=== PATIENT | female | born 1950 | race Caucasian/White ===

== ENCOUNTER 2017-07-20 19:56 | Inpatient (IN) | payer MEDICARE, OTHER ==
[~2017-07-20 19:56] MED LIST: ISOVUE-370 76%-LOCM 1 ML ONE
[2017-07-20 20:49] LABS: Bilirubin Small (Negative); Blood, Urine Large (Negative); Clarity TURBID (Clear); Glucose, Urine (Dipstick) Negative (Negative); Leukocyte Large (Negative); Nitrite Negative (Negative); Protein, Urine (Dipstick) 300 mg/dL (Neg-Trace); Specific Gravity, Urine 1.018 (1.002-1.036); pH, Urine 5.5 (5.0-9.0)
[2017-07-20 20:50] LABS: Bacteria/HPF 4+ HPF (None Seen)
[2017-07-20 20:51] LABS: Pathc Cast-AUWi Flag 11.84 (0-2.49); Yeast-AUWi Flag 113.8 (0-25.0)
[2017-07-20 20:56] LABS: Band 22 % (5-11); Hemoglobin 15.4 g/dL (12.0-16.0); Lymphocytes 2 % (21-51); MDiff Complete? YES; Mean Corpuscular HGB CONC 34.6 g/dL (32.0-36.0); Mean Platelet Volume 6.3 fL (7.4-10.4); Monocytes 4 % (0-10); Neutrophil 72 % (42-75); PLT Morphology Comment Appears Adequate; Platelet Count 232 thou/uL (130-400); RBC Distribution Width 12.8 % (11.5-14.5); Red Blood Cell (RBC) Count 4.28 mill/uL (4.20-5.40); White Blood Cell (WBC) Count 30.2 thou/uL (4.8-10.8)
[2017-07-20 20:59] LABS: RBC/HPF 21-50 HPF (0-3)
[2017-07-20 21:01] LABS: CKMB 1.5 ng/mL (0-6.6); Troponin I Less than 0.010 ng/mL (< 0.028)
[2017-07-20 21:09] LABS: ALT (SGPT) 54 U/L (8-55); AST (SGOT) 42 U/L (5-34); Albumin 4.3 g/dL (3.4-4.8); Alkaline Phosphatase 163 U/L (40-150); Anion Gap 24 mmol/L (10-20); BUN (Urea Nitrogen) 45 mg/dL (9.8-20.1); Bilirubin, Total 1.4 mg/dL (0.2-1.2); Calc. Creatinine Clearance 0 mL/min (70-130); Calcium 10.7 mg/dL (7.8-10.44); Carbon Dioxide 19 mmol/L (23-31); Chloride 93 mmol/L (98-107); Estimated GFR-MDRD 15; Globulin 3.3 g/dL (2.4-3.5); Glucose 169 mg/dL (80-115); Lipase 6 U/L (8-78); Potassium 4.3 mmol/L (3.5-5.1); Protein, Total 7.6 g/dL (6.0-8.3); Sodium 132 mmol/L (136-145)
[2017-07-20] MEDS ORDERED: Piperacillin/Tazobactam 4.5 GM VIAL ONE (21:10)
[2017-07-20] MEDS ORDERED: Acetaminophen 500 MG TAB ONE (21:10)
--- NOTE | 2017-07-20 21:31 | RAD ---
PORTABLE AP CHEST X-RAY 07/20/17 HISTORY: Altered mental status. Sepsis alert. COMPARISON: 06/28/14. FINDINGS: The cardiac silhouette and pulmonary vasculature are within normal limits. The mediastinal structures and cardiac silhouette are accentuated due to rotation of the patient. The lungs are clear. Vascular calcifications are seen in the thoracic aorta. There has been no interval change from the prior exam . IMPRESSION: No acute cardiopulmonary process. POS: [facility]
[2017-07-20] MEDS ORDERED: Bisacodyl 5 MG TAB PO PRN (22:24)
[2017-07-20] MEDS ORDERED: Acetaminophen 650 MG Suppository PR PRN (22:24)
[2017-07-20] MEDS ORDERED: Dextrose 5% in Water 1,000 ML IV PRN (22:30)
[2017-07-20] MEDS ORDERED: Dextrose 50% Abboject 50 ML SYRINGE SLOW IVP PRN (22:30)
[2017-07-20 22:50] LABS: Acetaminophen Less than 6.0 mcg/mL (10.0-30.0); Alcohol Less than 10 mg/dL (Less than 10); Salicylate Less than 8.0 mg/dL (15.0-30.0)
--- NOTE | 2017-07-20 22:57 | CT ---
NONCONTRAST CT HEAD: 07/20/17 HISTORY: Altered mental status. FINDINGS: There is an increased density lesion with suggestion of a punctate peripheral calcification seen near the tip of the basilar artery which measures 12 mm x 9 mm and may represent a basilar tip artery ane urysm. There are chronic small vessel ischemic changes and cerebral volume loss. There is no evidence of an acute cortical infarction, hemorrhage, mass effect or midline shift. Ventricular system is normal in size, shape and position for the degree of sulcal atrophy. Minimal mucosal thickening is seen in the right maxillary antrum. The remainder of the visualized par anasal sinuses and mastoid air cells are clear. Calvarial structures appear intact. IMPRESSION: 1. Evidence for basilar tip artery aneurysm. However, confirmation with CT angiogram brain is re commended to exclude other etiologies or lesions. 2. Chronic small vessel ischemic changes and cerebral volume loss. 3. Above findings discussed with Dr. Barakat in the Emergency Department on 07/20/17 at 2047 hours . POS: [facility]
--- NOTE | 2017-07-20 23:04 | CT ---
CT ANGIOGRAM HEAD WITH IV CONTRAST AND 3D RECONSTRUCTION 07/20/17 HISTORY: Altered mental status. Findings suggestive of basilar tip artery aneurysm were noted on noncontrast h ead CT. FINDINGS: As noted on the noncontrast CT scan of the head, there is a large basilar tip artery aneurysm measuri ng 10 mm craniocaudal x 12.6 mm AP x 11 mm transverse. There is also an approximately 4 mm aneurysm at the ACOM position. Atherosclerotic calcifications are seen in the internal carotid arteries at the carotid siphons. Ther e is mild atherosclerotic irregularity of the internal carotid arteries. The bilateral middle cerebr al and anterior cerebral arteries are patent without focal stenosis or branch occlusion. The right vertebral artery is dominant and patent. The left ventricular artery is smaller in caliber but also patent. The basilar artery is patent. the bilateral posterior cerebral and superior cerebell ar arteries appear patent. IMPRESSION: 1. Large basilar tip artery aneurysm. 2. Small ACOM position aneurysm. 3. Atherosclerotic vascular calcifications in the internal carotid arteries. 1. POS: [facility]
--- NOTE | 2017-07-20 23:32 | HP ---
PRIMARY CARE PHYSICIAN: Kaila Mcadams M.D. CHIEF COMPLAINT: Altered mental status. HISTORY OF PRESENT ILLNESS: Ms. Cummings is a pleasant 67-year-old lady who was seen at [facility] on 07/20/2017. Ms. Cummings is unable to provide any significant history. Her family was by the bedside and was abl e to provide history. Collateral history was also obtained from discussion with emergency room physi elio and review of medical records. Ms. Cummings lives by herself and manages all her activities on her own. Over the last few weeks, th ere has been concern regarding decline in cognition and memory. She was seen by neurologist on 06/18. I do not have access to the records of that clinical encounter. Over the last few days, she has been becoming more and more forgetful. Her son reached her neighbors to check on her. Around 6:30 p.m. today, she was found across the street, without her pants on. He r son reports that she usually dresses in a night gown during the daytime and this is not unusual for her. She has been confused. She is able to recognize her son, but is unable to name other family members. REVIEW OF SYSTEMS: Could not be completed because of the patient's altered mental status. PAST MEDICAL HISTORY: Significant for hypertension, hypothyroidism, diabetes mellitus type 2, COPD, tremors and dyslipidemia. PAST SURGICAL HISTORY: The patient had a D and C in 11/2013. PSYCHIATRIC HISTORY: Anxiety and depression. SOCIAL HISTORY: The patient drinks alcohol on a daily basis. She also smokes 1 pack of cigarettes a day. No history of recreational drug use. FAMILY HISTORY: Unable to obtain. ALLERGIES: PENICILLIN. CURRENT MEDICATIONS: Venlafaxine 37.5 mg daily, vitamin D 50,000 units weekly, metoprolol succinate 100 mg daily, Synthroid 125 mcg daily, metformin 500 mg 4 times a day, losartan 100 mg daily, aspirin 81 mg daily, hydrochlorothiazide 12.5 mg daily, Symbicort 2 puffs 2 times a day, Botox injection elizabeth ry 3 months, Vascepa 1 g 2 times a day, Repatha 420 mg monthly and aripiprazole 5 mg daily. PHYSICAL EXAMINATION: GENERAL: Ms. Cummings is awake and alert, not in acute distress. VITAL SIGNS: Blood pressure is 99/57, pulse is 115. She is breathing at rate of 22 and saturating 9 7% on room air. She is afebrile. EYES: No scleral icterus. No conjunctival pallor. ENT: Dry mucosal membranes, no oropharyngeal erythema or exudates. NECK: Supple, nontender, trachea midline, no thyromegaly. RESPIRATORY: Accessory muscles of breathing are not active. Chest wall movements are symmetric bila terally. LUNGS: Clear to auscultation without wheeze, rhonchi or crepitations. CARDIOVASCULAR: S1 and S2 are heard, tachycardic and regular. Peripheral pulses palpable. No carot id bruit, no pericardial rub. ABDOMEN: Soft, nontender, bowel sounds heard, no hepatomegaly, no splenomegaly. NEUROLOGIC: Cranial nerves II through XII intact, deep tendon reflexes are 2+. MUSCULOSKELETAL: Power is 5/5 in all 4 extremities. SKIN: No rashes or subcutaneous nodules. LYMPHATIC: No cervical lymphadenopathy. PSYCHIATRIC: Normal mood, normal affect, patient is not oriented to person, place or time. LABORATORY DATA: Ms. Cummings's labs and investigations were reviewed. I reviewed her electrocardio gram, which shows sinus tachycardia, no ST changes to suggest an acute coronary syndrome. I also rev iewed her chest x-ray, which does not show any pulmonary infiltrates. She had a noncontrast CT scan of the brain, which showed evidence for basilar tip artery aneurysm. Radiologist recommended CT amee ogram of the brain. The study has been completed, report pending. She has leukocytosis with 30,200 white cells, of which 72% are neutrophils and 22% are bands, normal hemoglobin of 15.4, macrocytosis with MCV of 104, normal platelet count, decreased sodium of 132, normal potassium, decreased carbon d ioxide of 19, elevated anion gap of 24, elevated lactic acid of 8.2, elevated blood urea nitrogen 45, elevated creatinine 3.12, last known creatinine 0.88 on 07/04/2016, elevated calcium 10.7, elevated total bilirubin 1.4, elevated AST of 42, normal ALT, elevated alkaline phosphatase of 163, normal tro ponin I, elevated TSH of 7.4642. Urinalysis positive for protein, ketones, blood, bilirubin and leuk ocyte esterase, and plasma alcohol level less than 10. ASSESSMENT AND PLAN: Ms. Cummings is a pleasant 67-year-old lady who was seen at [facility]. Her problem list includes: 1. Acute encephalopathy: Likely metabolic or infectious. Patient will be admitted to the hospital for further management. 2. Sepsis: Patient's presentation meets the criteria for sepsis, suspected source of infection in t he urinary tract. She will be treated with intravenous fluids and antibiotics. 3. Urinary tract infection: She has received Zosyn and vancomycin in the emergency room. We will c ontinue vancomycin and change Zosyn to meropenem to cover for extended-spectrum beta-lactamases posit mk organisms. 4. Hypothyroidism: TSH is slightly elevated. I will check free T3 and free T4. 5. Tobacco abuse: Start nicotine replacement therapy. 6. Daily alcohol use: Start ASE protocol. 7. Diabetes mellitus type 2: Hold metformin, given renal failure. Start Accu-Cheks and insulin slid ing scale. 8. Acute kidney injury: Likely prerenal. Hydrate the patient and recheck creatinine level. Hold n ephrotoxic medications include metformin, losartan, and hydrochlorothiazide. Many thanks for allowing me to participate in your patient's care. Please feel free to contact me wi th any questions or concerns. LEVEL OF RISK: High. LEVEL OF COMPLEXITY: High.
[2017-07-21 00:18] LABS: Free T4 (Free Thyroxine) 1.06 ng/dL (0.70-1.48)
[2017-07-21] MEDS ORDERED: Norepinephrine 8 MG/0.9% NS 250 ML ONE (01:34)
[2017-07-21] MEDS ORDERED: diphenhydrAMINE 50 MG/ML VIAL ONE (03:36)
[2017-07-21 03:40] LABS: Band 19 % (5-11); Hemoglobin 13.3 g/dL (12.0-16.0); Lymphocytes 2 % (21-51); MDiff Complete? YES; Mean Corpuscular Hemoglobin 35.1 pg (27.0-31.0); Mean Platelet Volume 6.3 fL (7.4-10.4); Monocytes 2 % (0-10); Neutrophil 77 % (42-75); PLT Morphology Comment Appears Adequate; Platelet Count 195 thou/uL (130-400); RBC Distribution Width 12.8 % (11.5-14.5); Red Blood Cell (RBC) Count 3.79 mill/uL (4.20-5.40); White Blood Cell (WBC) Count 24.7 thou/uL (4.8-10.8)
[2017-07-21 03:46] LABS: Lactic Acid 5.8 mmol/L (0.5-2.2)
[2017-07-21 04:21] LABS: Anion Gap 21 mmol/L (10-20); BUN (Urea Nitrogen) 43 mg/dL (9.8-20.1); Calc. Creatinine Clearance 0 mL/min (70-130); Calcium 8.6 mg/dL (7.8-10.44); Carbon Dioxide 13 mmol/L (23-31); Chloride 102 mmol/L (98-107); Estimated GFR-MDRD 19; Glucose 117 mg/dL (80-115); Potassium 4.3 mmol/L (3.5-5.1); Sodium 132 mmol/L (136-145)
[2017-07-21] MEDS ORDERED: Acetaminophen 325 MG TAB ONE (05:56)
[2017-07-21] MEDS: Sodium Chloride 0.9% 1,000 ML IV SCH ×3 (09:59→17:47)
[2017-07-21] MEDS: MEROPENEM 1 GM/50 ML 1 GM in Premix Bag 1 BAG IVPB SCH ×3 (10:00→21:48)
[2017-07-21] MEDS: Nicotine 21 MG PATCH TD SCH (10:01)
[2017-07-21] MEDS: Heparin 5,000 UNITS/ML VIAL SC SCH ×3 (10:01→20:54)
[2017-07-21] MEDS: Multivitamins, Adult 10 ML, Folic Acid 1 MG, Thiamine HCl 100 MG in Dextrose 5 %-0.45 %... IV SCH (10:12)
--- NOTE | 2017-07-21 11:28 | RAD ---
PORTABLE SUPINE FRONTAL CHEST RADIOGRAPH: Date: 07/21/17 COMPARISON: 07/20/17. HISTORY: Central line placement. FINDINGS: There is a right-sided vascular catheter with distal tip overlying the right atrium. Supine imaging l imits assessment for pneumothorax and pleural fluid. There is mild pulmonary vascular congestion with nonspecific diffuse stable interstitial prominence. IMPRESSION: Right-sided vascular catheter as above. POS: [facility]
[2017-07-21] MEDS ORDERED: Sodium Chloride 0.9% 1,000 ML IV SCH (13:00)
--- NOTE | 2017-07-21 15:03 | CON ---
DATE OF CONSULTATION: 07/21/2017 DATE OF CONSULTATION: Altered mental status. CONSULTING PHYSICIAN: Anthony Garcia M.D. This consultation encompassed 70 minutes time of the 70 minutes, greater than 50% was spent either wi th the patient or on the patient's unit in the hospital. HISTORY OF PRESENT ILLNESS: The patient is a 67-year-old female who apparently was found wandering i n the neighbor's yard yesterday. She has been confused over the last couple of days. This is not ty pical for her according to the patient's two children who are currently at the hospital seeing her. PAST MEDICAL HISTORY: 1. Hypertension. 2. Hypothyroidism. 3. Diabetes mellitus type 2. 4. Question of COPD. 5. Tremors. PAST SURGICAL HISTORY: D&C. PSYCHIATRIC HISTORY: Remarkable for anxiety, depression. SOCIAL HISTORY: Drinks at least a bottle of wine a day. Smokes at least a pack of cigarettes per da y. Lives at home by herself. FAMILY MEDICAL HISTORY: Unremarkable. ALLERGIES: PENICILLIN. MEDICATIONS PRIOR TO ADMISSION: Effexor, vitamin D, metoprolol, Synthroid, metformin, losartan, aspi rin, hydrochlorothiazide, Symbicort, Botox injections, Vascepa, Repatha, and aripiprazole. REVIEW OF SYSTEMS: Twelve point review of systems otherwise negative. PHYSICAL EXAMINATION: VITAL SIGNS: Temperature 99, pulse 100, blood pressure 90/54, O2 sat 94%. GENERAL: She is awake, alert, can answer some questions, but prefers just to stare. HEENT: Pupils react. Sclerae icteric. Oropharynx clear. NECK: Nodular thyroid. LUNGS: Clear without wheezing or rhonchi. CARDIOVASCULAR: S1, S2 regular. ABDOMEN: Soft, nontender. EXTREMITIES: No edema. LABORATORY AND X-RAY FINDINGS: White blood cell count 24.7, hematocrit 40, platelet count 195. Sodi um 132, potassium 4.3, chloride 102, CO2 of 13, BUN 43, creatinine 2.5, glucose 117, lactate was init ially 8.2 down to 5.8. Urinalysis showed too numerous to count white blood cells. Tox screen was ne gative. Chest x-ray showed no overt mass, effusion, or infiltrate. ASSESSMENT: 1. Urosepsis. 2. Altered mental status which is probably secondary to urosepsis. 3. History of alcohol and tobacco abuse. PLAN: Reviewed orders and agree with treatment with broad spectrum IV antibiotics. Vasopressors hav e already been discontinued. She needs a Neurology workup. She needs IV thiamine and multivitamins given her alcohol history. Hopefully, she can be moved out of the Critical Care Unit by tomorrow.
--- NOTE | 2017-07-21 15:31 | PDOC.PN ---
- Subjective Encounter Start Date: 07/21/17 Encounter Start Time: 11:00 Subjective: pt up in bed more awake - Objective Vital Signs & Weight: Vital Signs (12 hours) Temp Pulse Resp Pulse Ox 07/21/17 15:07 91 L 07/21/17 15:05 120 H 32 H 91 L 07/21/17 11:00 99.2 F 07/21/17 09:33 91 L 07/21/17 09:00 99 F 07/21/17 08:00 99 F 108 H 26 H 98 07/21/17 04:42 97 Weight Weight 163 lb 12.855 oz Most Recent Monitor Data Heart Rate from ECG 98 NIBP 169/94 NIBP BP-Mean 146 Respiration from ECG 32 SpO2 89 I&O: 07/20/17 07/21/17 07/22/17 06:59 06:59 06:59 Intake Total 3370 Output Total 500 Balance 2870 Result Diagrams: 07/21/17 03:18 07/21/17 03:18 Additional Labs: Accuchecks 07/21/17 11:41 POC Glucose 144 H Dx/Plan - Plan 1) acute metabolic encephalopathy 2) uti 3) alcohol abuse 4) basilar aneurysm 5) hypotension plan: pt's mentation is improving will continue iv abx for now pt drinks a bottle of wine daily will give pt 2L of iv fluids neurosurgery consulted for basilar aneurysm. * . Review of Systems - Review of Systems Eyes: negative: Pain, Vision Change, Conjunctivae Inflammation, Eyelid Inflammation, Redness, Other ENT: negative: Ear Pain, Ear Discharge, Nose Pain, Nose Discharge, Nose Congestion, Mouth Pain, Mouth Swelling, Throat Pain, Throat Swelling, Other Respiratory: negative: Cough, Dry, Shortness of Breath, Hemoptysis, SOB with Excertion, Pleuritic Pain, Sputum, Wheezing Cardiovascular: negative: chest pain, palpitations, orthopnea, paroxysmal nocturnal dyspnea, edema, light headedness, other Gastrointestinal: negative: Nausea, Vomiting, Abdominal Pain, Diarrhea, Constipation, Melena, Hematochezia, Other Genitourinary: negative: Dysuria, Frequency, Incontinence, Hematuria, Retention , Other Musculoskeletal: negative: Neck Pain, Shoulder Pain, Arm Pain, Back Pain, Hand Pain, Leg Pain, Foot Pain, Other - Medications/Allergies Allergies/Adverse Reactions: Allergies Allergy/AdvReac Type Severity Reaction Status Date / Time Penicillins Allergy Verified 11/27/13 11:08 Medications: Current Medications Acetaminophen (Tylenol) 650 mg PO Q4H PRN PRN Reason: Headache/Fever or Pain Acetaminophen (Tylenol) 650 mg MS Q4H PRN PRN Reason: Headache/Fever or Pain Bisacodyl (Dulcolax) 10 mg PO DAILYPRN PRN PRN Reason: Constipation Dextrose/Water (Dextrose 50%) 25 gm SLOW IVP PRN PRN PRN Reason: Hypoglycemia Glucagon (Glucagon) 1 mg IM PRN PRN PRN Reason: Hypoglycemia Heparin Sodium (Porcine) (Heparin) 5,000 units SC TID [facility] Last Admin: 07/21/17 15:20 Dose: 5,000 units Sodium Chloride (Normal Saline 0.9%) 1,000 mls @ 100 mls/hr IV .Q10H [facility] Last Admin: 07/21/17 10:08 Dose: Not Given Meropenem 1 gm/ Device 50 mls @ 100 mls/hr IVPB Q8HR [facility] Last Admin: 07/21/17 13:46 Dose: 50 mls Vancomycin HCl 1 gm/ Device 200 mls @ 200 mls/hr IVPB Q24HR [facility] Multivitamins 10 ml/ Folic Acid 1 mg/ Thiamine HCl 100 mg / Dextrose/Sodium Chloride 1,011.2 mls @ 100 mls/hr IV Q24HR [facility] Last Admin: 07/21/17 10:12 Dose: 1,011.2 mls Dextrose/Water (D5w) 1,000 mls @ 0 mls/hr IV .Q0M PRN; As Directed PRN Reason: Hypoglycemia Phenylephrine HCl 10 mg/ (Sodium Chloride) 251 mls @ 0 mls/hr IVPB INF [facility]; Titrate PRN Reason: Protocol Insulin Human Lispro (Humalog) 0 units SC .MILD SLIDING SCALE PRN PRN Reason: Mild Correctional Scale Nicotine (Nicoderm Patch) 21 mg TD Q24HR [facility] Last Admin: 07/21/17 10:01 Dose: 21 mg Sodium Chloride (Flush - Normal Saline) 10 ml IVF Q12HR [facility] Last Admin: 07/21/17 10:12 Dose: 10 ml Sodium Chloride (Flush - Normal Saline) 10 ml IVF PRN PRN PRN Reason: Saline Flush
--- NOTE | 2017-07-21 18:06 | CON ---
DATE OF CONSULTATION: 07/21/2017 HISTORY OF PRESENT ILLNESS: Ms. Cummings is a 67-year-old female who presented to [facility] cy Department on 07/20/2017 for altered mental status. She was admitted to the ICU after she was fou nd to have a UTI culture shows E. coli. She is unable to provide any significant history. However, her daughter and son-in-law were by bedside and I could obtain some history from them. She had a rec ent appointment with Dr. Marie on 06/18/2017 in which she has been getting treated for a left upper extremity dystonia with Botox injections. She lives by herself and manages all of her activities on her own. There was a concern for decreased cognition and memory over the past few weeks. She has b een more and more forgetful. Yesterday, she was found across the street at her house without any gusman ts on. Her son reported that she usually dresses in a nightgown during the daytime and this is not u nusual for her. She has been very confused and she is able to recognize her son. Upon admission to [place] ER, she had a head CT that showed a basilar tip aneurysm as well as a MCA aneurysm. The basilar tip aneurysm is 10 mm in diameter. The small Acom aneurysm is approximately 4 mm in diamete r. She has a history of drinking at least one bottle of wine a day. She also has a history of hyper tension, diabetes mellitus, COPD. Neurosurgery was consulted because of the findings on the CT scan. A CTA of the brain was later obtained to investigate further the Acom aneurysm and basilar tip aneu rysm. REVIEW OF SYSTEMS: Review of systems cannot be completed because of the patient's altered mental sta tus. PAST MEDICAL HISTORY: Significant for hypertension, hypothyroidism, diabetes mellitus type 2, COPD, tremors, dyslipidemia as well as left upper extremity dystonia. PAST SURGICAL HISTORY: The patient had a D&C 11/2013. PSYCHIATRIC HISTORY: Anxiety and depression. SOCIAL HISTORY: The patient drinks alcohol on a daily basis, approximately 1 bottle of wine. She sm okes 1 pack of cigarettes a day. There is no recreational drug use. FAMILY HISTORY: Unable to obtain. ALLERGIES: PENICILLIN. CURRENT MEDICATIONS: 1. Venlafaxine 37.5 mg daily. 2. Vitamin D 50,000 units weekly. 3. Metoprolol succinate 100 mg daily. 4. Synthroid 125 mcg daily. 5. Metformin 500 mg 4 times a day. 6. Losartan 100 mg daily. 7. Aspirin 81 mg daily. 8. Hydrochlorothiazide 12.5 mg daily. 9. Symbicort 2 puffs 2 times a day. 10. Botox injections every 3 months for left upper extremity dystonia. 11. Vascepa 1 gram 2 times a day. 12. Repatha 420 mg monthly. 13. Aripiprazole 5 mg daily. PHYSICAL EXAMINATION: GENERAL: The patient is in no acute distress. She is awake and alert. She is A&O x1. VITAL SIGNS: Vital signs are reviewed and vital signs are stable. She is afebrile. EYES: Pupils equal and reactive to light. Extraocular muscles are intact. Sclerae is white, nonict amalia. CARDIOVASCULAR: The patient has regular rate and rhythm, normal S1, S2 heart sounds, no distal cyano sis or clubbing noted. RESPIRATORY: The patient has bilateral symmetric chest rise. Appears to have no shortness of breath . NEUROLOGIC: Cranial nerves II-XII are grossly intact. Speech is fluent and she answers some questio ns appropriately. Other, she does not answer appropriately. GCS of 14. PSYCHIATRIC: Normal mood and affect. The patient is not oriented to person, place, and time. IMPRESSION: Ms. Cummings is a 67-year-old female that is being treated for urinary tract infection a nd for cultures that grew E. coli. She was admitted to the ICU. 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 PLAN: From neurosurgical perspective, Ms. Cummings is rightfully not oriented to person, place or ti me based on her UTI that is being treated with antibiotics. Her neurologic examination is normal oth er than forgetful memory does not respond to my questions appropriately. She is on the AAC protocol because of daily alcohol use approximately 1 bottle of wine. She has acute kidney injury. Dr. Ramone toney reviewed the CTA and CT scans that showed a basilar tip aneurysm in the Acom aneurysm. We may t alk to Dr. Kurtz who does the endovascular procedures in our group to address this large basilar tip aneurysm. If there are any further questions, please feel free to contact Neurosurgery.
--- NOTE | 2017-07-21 21:12 | PRG ---
DATE OF SERVICE: 07/21/2017 I personally interviewed and examined the patient and agree with documentation of ANA MARIA Parish 07/21/2017. Briefly, Ms. Karie Cummings was brought to the emergency department yesterday for altered mental sta tus. Her urine is positive for greater than 100,000 colony-forming units of E. coli. Due to her mental status changes, some odd behavior, and recent memory deterioration, CT examination of the brain was performed during her evaluation in the emergency department, showed a mass extending from the basilar tip towards the hypothalamus on the left. CT angiogram has been performed showing a 10 to 11 mm basilar tip aneurysm angled to the left. In addition, there is a 3-4 mm anterior commu nicating artery aneurysm. By history and examination and imaging, there is no evidence of any hemorr lucinda either on this admission or previously. Ms. Cummings has a medium-sized basilar tip aneurysm that may do well with treatment. However, she w ill have to recover well from this hospitalization and make a clinic appointment to speak with Dr. Rustam humphries about that, as basilar tip aneurysms are more safely treated with endovascular coiling than they are with any surgical clipping. We can also have a discussion at that time about whether the anterio r communicating artery aneurysm needs treatment or observation. Both of these lesions are chronic and unrelated to her current hospitalization. Our office will make followup arrangements.
[2017-07-21] MEDS ORDERED: Vancomycin HCl 1 GM in Premix Bag 1 BAG IVPB SCH (22:00)
[2017-07-21] MEDS ORDERED: Diazepam 5 MG TAB PO PRN (23:44)
[2017-07-21] MEDS ORDERED: Diazepam 5 MG TAB PO SCH (23:45)
[2017-07-21] MEDS ORDERED: Thiamine HCl 200 MG/2 ML VIAL IM SCH (23:45)
[2017-07-22] MEDS: Lorazepam 2 MG/ML VIAL SLOW IVP PRN ×2 (01:15→05:50)
[2017-07-22] MEDS ORDERED: Diazepam 5 MG TAB PO PRN (04:00)
[2017-07-22] MEDS: MEROPENEM 1 GM/50 ML 1 GM in Premix Bag 1 BAG IVPB SCH (05:35)
[2017-07-22] MEDS ORDERED: Levothyroxine Sodium 125 MCG TAB PO SCH (09:00)
[2017-07-22] MEDS ORDERED: Ergocalciferol 1.25 MG(50,000 UNITS) CAP PO SCH (09:00)
[2017-07-22] MEDS ORDERED: Folic Acid 1 MG TAB PO SCH (09:00)
[2017-07-22] MEDS ORDERED: CCU Electrolyte Replacement 1 EACH FS ONE (09:07)
[2017-07-22] MEDS ORDERED: Ventilator Sedation Protocol 1 EACH FS ONE (09:07)
[2017-07-22] MEDS ORDERED: VANCOMYCIN IVPB PRN (09:12)
--- NOTE | 2017-07-22 09:28 | PRG ---
DATE OF SERVICE: 07/22/2017 PULMONARY AND CRITICAL CARE PROGRESS NOTE SUBJECTIVE: I walked in Ms. Cummings's room today and she was in overt respiratory failure and cyano tic. She has been getting high dose benzodiazepines for symptoms of alcohol withdrawal. I immediate ly took her down to the CCU and intubated her orally with a 7.5 endotracheal tube on the first attemp t and placed on mechanical ventilation and tidal CO2 detector showed yellow color. PHYSICAL EXAMINATION: VITAL SIGNS: Currently, vital signs, pulse 120, blood pressure 109/55, O2 saturation in the high 80s to low 90s, respiratory rate 28. HEENT: Unremarkable. NECK: No JVD. LUNGS: Wheezing and coarse breath sounds. CARDIAC: S1 and S2 regular, tachycardic. ABDOMEN: Soft, nontender. EXTREMITIES: No edema. LABORATORY DATA: No labs have been done today to this point. ASSESSMENT: 1. Urosepsis. 2. Acute respiratory failure requiring mechanical ventilation. 3. Underlying chronic obstructive pulmonary disease. PLAN: 1. She has been intubated and placed on mechanical ventilation. 2. I will go ahead and check some stat labs. 3. Check ABG. 4. Extend antibiotic spectrum.
[2017-07-22 09:39] LABS: Hemoglobin 12.8 g/dL (12.0-16.0); Mean Corpuscular Hemoglobin 35.6 pg (27.0-31.0); Mean Platelet Volume 6.4 fL (7.4-10.4); Platelet Count 163 thou/uL (130-400); RBC Distribution Width 13.2 % (11.5-14.5); White Blood Cell (WBC) Count 21.1 thou/uL (4.8-10.8)
[2017-07-22] MEDS: Sodium Chloride 0.9% 1,000 ML IV SCH ×3 (09:55→11:07)
[2017-07-22] MEDS: Aripiprazole 10 MG TAB PO SCH (09:55)
[2017-07-22] MEDS: Losartan 25 MG TAB PO SCH (09:55)
[2017-07-22 09:57] LABS: ALT (SGPT) 45 U/L (8-55); AST (SGOT) 59 U/L (5-34); Alkaline Phosphatase 123 U/L (40-150); Anion Gap 17 mmol/L (10-20); BUN (Urea Nitrogen) 40 mg/dL (9.8-20.1); Bilirubin, Total 1.1 mg/dL (0.2-1.2); Calc. Creatinine Clearance 36 mL/min (70-130); Calcium 7.4 mg/dL (7.8-10.44); Carbon Dioxide 14 mmol/L (23-31); Chloride 109 mmol/L (98-107); Estimated GFR-MDRD 29; Globulin 2.7 g/dL (2.4-3.5); Glucose 137 mg/dL (80-115); Potassium 3.9 mmol/L (3.5-5.1); Protein, Total 5.7 g/dL (6.0-8.3); Sodium 136 mmol/L (136-145)
[2017-07-22] MEDS: Propofol 1,000 MG/100 ML VIAL IV ONE (09:58)
[2017-07-22] MEDS ORDERED: Vancomycin HCl 1 GM in Premix Bag 1 BAG IVPB SCH (10:00)
[2017-07-22 10:10] LABS: Band 14 % (5-11); Lymphocytes 1 % (21-51); MDiff Complete? YES; Monocytes 4 % (0-10); Neutrophil 80 % (42-75); PLT Morphology Comment 1; Reactive Lymphocytes 1 % (0-10); Vacuoles SLIGHT
--- NOTE | 2017-07-22 10:46 | RAD ---
CHEST 1 VIEW: HISTORY: Intubated. COMPARISON: Chest radiograph prior day. FINDINGS: The patient is intubated with endotracheal tube tip above the laith 5 cm. Enteric tube is in place with tip below the diaphragm out of the field of view. Perihilar opacities in the upper lobes and up per lobe opacities are new. IMPRESSION: 1. Adequate location of the endotracheal and enteric tubes. 2. Perihilar and upper lobe airspace opacities likely reflective of edema given rapid progression. POS: [facility]
[2017-07-22] MEDS: Multivitamin W/ Minerals 1 TAB PO SCH (11:06)
[2017-07-22] MEDS: Venlafaxine HCl XR 150 MG CAP PO SCH (11:07)
[2017-07-22] MEDS: Magnesium Oxide 400 MG TAB PO SCH (11:08)
[2017-07-22] MEDS: Pantoprazole 40 MG VIAL IVP SCH (11:17)
[2017-07-22] MEDS: Heparin 5,000 UNITS/ML VIAL SC SCH ×3 (11:17→21:25)
[2017-07-22 11:21] LABS: Actual Bicarbonate (HCO3a) 14.3 mEq/L (22-26); Base Excess (BEa) -11.4 mEq/L (0 (+/-) 2.5); CO2 Tension 31.4 mmHg (35.0-45.0); Hematocrit-ABG 35.3 % (36.0-47.0); Hemoglobin (Hb) 11.3 g/dL (12.0-16.0); O2 Tension (PaO2) 79.3 mmHg (80.0-100.0); pH, Arterial 7.28 (7.35-7.45)
[2017-07-22 11:22] LABS: Puncture Site RB
[2017-07-22] MEDS: Nicotine 21 MG PATCH TD SCH (11:30)
[2017-07-22] MEDS ORDERED: Succinylcholine Chloride 20 MG/ML 10 ml SYRINGE FS ONE (11:41)
[2017-07-22] MEDS: Clindamycin/D5W 600 MG in Premix Bag 1 BAG IVPB SCH ×2 (13:14→18:14)
[2017-07-22] MEDS ORDERED: Propofol 1,000 MG/100 ML VIAL IV ONE ×2 (14:35→22:29)
[2017-07-22] MEDS: Multivitamins, Adult 10 ML, Folic Acid 1 MG, Thiamine HCl 100 MG in Dextrose 5 %-0.45 %... IV SCH (14:42)
--- NOTE | 2017-07-22 14:49 | PQF ---
DATE: 07-22-17 ATTN: DR. MAGALIS MAYFIELD Please exercise your independent, professional judgment in responding to the clarification form. Clinical indicators are provided on the bottom of this form for your review Please check appropriate box(s) to clarify if the following diagnosis has been ruled in or ruled out: SEPSIS [ x ] Ruled in diagnosis [ ] Continue to treat [ ] Resolved [ ] Ruled out diagnosis [ ] Other diagnosis [ ] Unable to determine In addition, please specify: Present on Admission (POA): [x ] Yes [ ] No [ ] Unable to determine For continuity of documentation, please document condition throughout progress notes and discharge summary. Thank You. CLINICAL INDICATORS - SIGNS / SYMPTOMS / LABS ER DIAGNOSIS: SEPSIS, AMS, UTI H&P: SEPSIS, ACUTE ENCEPHALOPATHY, UTI, MAKENZIE PN 07-21-17: ACUTE METABOLIC ENCEPHALOPATHY, UTI, ALCOHOL ABUSE, BASILAR ANEURYSM, HYPOTENSION WBC: 07-20-17: 30.2 07-21-17: 24.7 07-22-17: 21.1 BANDS: 07-20-17: 22 07-21-17: 19 07-22-17: 14 LACTIC ACID: 07-20-17: 8.2 07-21-17: 3.0 07-21-17: 5.8 RISK FACTORS: H&P: SEPSIS, ACUTE ENCEPHALOPATHY, UTI, MAKENZIE TREATMENTS: (MAR) IVF, CLEOCIN, LEVAQUIN, VANCOMYCIN, MERREM (This form is maintained as a part of the permanent medical record) 2014 [employer] All Rights Reserved [email or web address] [email or web address] Office: [phone] [facility]
[2017-07-22] MEDS: HumaLOG 300 UNITS/3 ML VIAL SC PRN (17:19)
[2017-07-22] MEDS ORDERED: Mometasone/Formoterol 120 PUFF INHALER INH SCH (18:30)
--- NOTE | 2017-07-22 18:37 | PDOC.PN ---
- Subjective Encounter Start Date: 07/22/17 Encounter Start Time: 11:30 Subjective: pt intubated - Objective Vital Signs & Weight: Vital Signs (12 hours) Temp Pulse Resp BP BP Pulse Ox 07/22/17 14:32 106 H 99/66 07/22/17 14:00 97.8 F 07/22/17 13:44 106 H 83/51 L 07/22/17 12:00 22 H 07/22/17 10:37 121 H 86/59 L 07/22/17 10:00 97.8 F 121 H 22 H 99 07/22/17 09:24 132 H 142/82 H 07/22/17 07:47 96.7 F L 125 H 24 H 131/55 L 92 L Weight Admit Weight 163 lb 12.855 oz Weight 163 lb 12.855 oz Most Recent Monitor Data Heart Rate from ECG 120 NIBP 116/65 NIBP BP-Mean 74 Respiration from ECG 26 SpO2 96 I&O: 07/21/17 07/22/17 07/23/17 06:59 06:59 06:59 Intake Total 5336 2150 Output Total 1665 255 Balance 3671 1895 Result Diagrams: 07/22/17 09:26 07/22/17 09:26 Additional Labs: Accuchecks 07/22/17 07/22/17 07/22/17 17:07 13:27 06:02 POC Glucose 154 H 109 147 H 07/21/17 20:53 POC Glucose 147 H Phys Exam - Physical Examination mild rhonchi all over lungs Cardiovascular: RRR, no significant murmur, no rub, gallop, irregular Gastrointestinal: soft, positive bowel sounds Musculoskeletal: no edema Dx/Plan - Plan 1) Acute resp failure 2) sepsis 3) uti 4) alcohol abuse 5) leukocytosis with bands plan: 07/22 According to nursing staff pt was on a non rebreather and was on ativan for alcohol withdrawal. Pt became very somnolence and was intubated. Pt's urine cx indicated ecoli and is currently on broad spectrum abx. * . Review of Systems - Review of Systems Other: unable to participate - Medications/Allergies Allergies/Adverse Reactions: Allergies Allergy/AdvReac Type Severity Reaction Status Date / Time Penicillins Allergy Verified 11/27/13 11:08 Medications: Current Medications Acetaminophen (Tylenol) 650 mg PO Q4H PRN PRN Reason: Headache/Fever or Pain Acetaminophen (Tylenol) 650 mg [place] Q4H PRN PRN Reason: Headache/Fever or Pain Albuterol/Ipratropium (Duoneb) 3 ml NEB [id number] [facility] Last Admin: 07/22/17 14:31 Dose: 3 ml Aripiprazole (Abilify) 5 mg PO DAILY [facility] Last Admin: 07/22/17 09:55 Dose: Not Given Bisacodyl (Dulcolax) 10 mg PO DAILYPRN PRN PRN Reason: Constipation Dextrose/Water (Dextrose 50%) 25 gm SLOW IVP PRN PRN PRN Reason: Hypoglycemia Glucagon (Glucagon) 1 mg IM PRN PRN PRN Reason: Hypoglycemia Heparin Sodium (Porcine) (Heparin) 5,000 units SC TID [facility] Last Admin: 07/22/17 14:38 Dose: 5,000 units Multivitamins 10 ml/ Folic Acid 1 mg/ Thiamine HCl 100 mg / Dextrose/Sodium Chloride 1,011.2 mls @ 100 mls/hr IV Q24HR [facility] Last Admin: 07/22/17 14:42 Dose: 1,011.2 mls Dextrose/Water (D5w) 1,000 mls @ 0 mls/hr IV .Q0M PRN; As Directed PRN Reason: Hypoglycemia Sodium Chloride (Normal Saline 0.9%) 1,000 mls @ 100 mls/hr IV .Q10H [facility] Last Admin: 07/22/17 10:20 Dose: Not Given Clindamycin Phosphate/Dextrose (600 mg/ Device) 50 mls @ 100 mls/hr IVPB 0200, 1000,1800 [facility] Last Admin: 07/22/17 18:14 Dose: 50 mls Vancomycin HCl 1 gm/ Device 200 mls @ 200 mls/hr IVPB [place]CALL [facility] Levofloxacin 250 mg/ Device 50 mls @ 100 mls/hr IVPB 1400 [facility] Insulin Human Lispro (Humalog) 0 units SC .MILD SLIDING SCALE PRN PRN Reason: Mild Correctional Scale Last Admin: 07/22/17 17:19 Dose: 2 unit Iron/Minerals/Multivitamins (Theragran M) 1 tab PO DAILY [facility] Last Admin: 07/22/17 11:06 Dose: Not Given Levothyroxine Sodium (Synthroid) 125 mcg PO 0600 [facility] Lorazepam (Ativan) 1 mg SLOW IVP Q4H PRN PRN Reason: Anxiety/Agitation Last Admin: 07/22/17 05:50 Dose: 1 mg Losartan Potassium (Cozaar) 100 mg PO DAILY [facility] Last Admin: 07/22/17 09:55 Dose: Not Given Magnesium Oxide (Magnesium Oxide) 400 mg PO DAILY [facility] Last Admin: 07/22/17 11:08 Dose: Not Given Methylprednisolone Sodium Succinate (Solu-Medrol) 20 mg IVP 0400,1000,1600, 2200 [facility] Last Admin: 07/22/17 17:09 Dose: 20 mg Miscellaneous Medication (Pharmacy To Dose) 1 each IVPB DAILYPRN PRN PRN Reason: LABS Nicotine (Nicoderm Patch) 21 mg TD Q24HR [facility] Last Admin: 07/22/17 11:30 Dose: 21 mg Pantoprazole Sodium (Protonix) 40 mg IVP DAILY [facility] Last Admin: 07/22/17 11:17 Dose: 40 mg Sodium Chloride (Flush - Normal Saline) 10 ml IVF Q12HR [facility] Last Admin: 07/22/17 09:58 Dose: 10 ml Sodium Chloride (Flush - Normal Saline) 10 ml IVF PRN PRN PRN Reason: Saline Flush Last Admin: 07/22/17 05:50 Dose: 10 ml Thiamine HCl (Thiamine Hcl) 100 mg IM ONE [facility] Stop: 07/22/17 23:46 Thiamine HCl (Thiamine) 100 mg PO DAILY [facility] Last Admin: 07/22/17 11:06 Dose: Not Given Vecuronium [place] (Norcuron) 10 mg IVP Q30MIN PRN PRN Reason: Agitation Venlafaxine HCl (Effexor Xr) 150 mg PO DAILY [facility] Last Admin: 07/22/17 11:07 Dose: Not Given
[2017-07-22 21:59] LABS: Vancomycin, Trough 13.9 ug/mL
[2017-07-23] MEDS: Clindamycin/D5W 600 MG in Premix Bag 1 BAG IVPB SCH ×3 (02:34→17:28)
[2017-07-23] MEDS: Sodium Chloride 0.9% 1,000 ML IV SCH ×3 (04:46→14:28)
[2017-07-23 05:03] LABS: Band 24 % (5-11); Hemoglobin 11.1 g/dL (12.0-16.0); Lymphocytes 2 % (21-51); MDiff Complete? YES; Mean Corpuscular HGB CONC 33.6 g/dL (32.0-36.0); Mean Corpuscular Hemoglobin 35.5 pg (27.0-31.0); Mean Platelet Volume 6.4 fL (7.4-10.4); Metamyelocyte 1 % (0-0); Monocytes 3 % (0-10); Neutrophil 70 % (42-75); PLT Morphology Comment Appears Adequate; Platelet Count 121 thou/uL (130-400); RBC Distribution Width 13.4 % (11.5-14.5); Red Blood Cell (RBC) Count 3.12 mill/uL (4.20-5.40); White Blood Cell (WBC) Count 12.8 thou/uL (4.8-10.8)
[2017-07-23 05:06] LABS: ALT (SGPT) 37 U/L (8-55); AST (SGOT) 44 U/L (5-34); Albumin 2.7 g/dL (3.4-4.8); Alkaline Phosphatase 95 U/L (40-150); Anion Gap 11 mmol/L (10-20); BUN (Urea Nitrogen) 32 mg/dL (9.8-20.1); Bilirubin, Total 0.9 mg/dL (0.2-1.2); Calc. Creatinine Clearance 47 mL/min (70-130); Calcium 7.2 mg/dL (7.8-10.44); Carbon Dioxide 15 mmol/L (23-31); Chloride 114 mmol/L (98-107); Estimated GFR-MDRD 38; Globulin 2.3 g/dL (2.4-3.5); Glucose 165 mg/dL (80-115); Sodium 137 mmol/L (136-145)
[2017-07-23 05:10] LABS: Potassium 2.7 mmol/L (3.5-5.1)
[2017-07-23] MEDS ORDERED: Propofol 1,000 MG/100 ML VIAL IV ONE (05:16)
[2017-07-23] MEDS: Propofol 1,000 MG/100 ML VIAL IV ONE (05:21)
[2017-07-23] MEDS: Levothyroxine Sodium 125 MCG TAB PO SCH (05:24)
[2017-07-23] MEDS ORDERED: Potassium Chloride 40 MEQ in Sodium Chloride 0.9% 250 ML 250 ML IVPB SCH (06:00)
[2017-07-23] MEDS: HumaLOG 300 UNITS/3 ML VIAL SC PRN ×2 (06:26→16:33)
[2017-07-23] MEDS ORDERED: Vancomycin HCl 1.25 GM in Sodium Chloride 0.9% 250 ML 250 ML IVPB SCH (06:45)
[2017-07-23] MEDS ORDERED: Ventilator Sedation Protocol 1 EACH FS SCH (07:46)
[2017-07-23] MEDS ORDERED: Fentanyl BOLUS 250 ML IVPB PRN (07:50)
[2017-07-23] MEDS ORDERED: Propofol BOLUS 1,000 MG/100 ML VIAL IV PRN (07:50)
[2017-07-23] MEDS ORDERED: Morphine 4 MG/ML VIAL SLOW IVP PRN (07:50)
[2017-07-23] MEDS ORDERED: fentaNYL Citrate/PF 2,000 MCG in Sodium Chloride 0.9% 60 ML IV SCH (07:50)
[2017-07-23] MEDS ORDERED: CCU Electrolyte Replacement 1 EACH FS SCH (07:54)
[2017-07-23] MEDS ORDERED: Potassium Phosphate 15 MMOL in Sodium Chloride 0.9% 250 ML 250 ML IV PRN (07:56)
[2017-07-23] MEDS ORDERED: Potassium Phosphate 12 MMOL in Sodium Chloride 0.9% 250 ML 250 ML IV PRN (07:56)
[2017-07-23] MEDS ORDERED: Potassium Chloride 20 MEQ TAB PO PRN (07:56)
[2017-07-23] MEDS ORDERED: Potassium Chloride 40 MEQ in Sodium Chloride 0.9% 250 ML 250 ML IVPB PRN (07:56)
[2017-07-23] MEDS ORDERED: Potassium Phosphate 9 MMOL in Sodium Chloride 0.9% 100 ML IVPB PRN (07:56)
[2017-07-23] MEDS ORDERED: Magnesium Oxide 400 MG TAB PO PRN ×2 (07:56)
[2017-07-23] MEDS ORDERED: Potassium Chloride 40 MEQ in Premix Bag 1 BAG IVPB PRN (07:56)
[2017-07-23] MEDS ORDERED: Magnesium 2 GM/NS 0.9% 100 ML 2 GM in Premix Bag 1 BAG IVPB PRN (07:56)
--- NOTE | 2017-07-23 08:14 | RAD ---
CHEST ONE VIEW: History: Dyspnea. Follow up. Comparison: 07-22-17 FINDINGS: Cardiomediastinal silhouette is magnified by projection. Pulmonary vasculature remains engorged with dense bilateral left lobe and perihilar infiltrates. Mediastinum is midline. Lines and tubes appear u nchanged in position. Lung apices are excluded from the image. residential monitor leads overlie the ches t. IMPRESSION: Dense bilateral infiltrates, pulmonary edema, and other findings are stable. POS: CHRISTY
[2017-07-23 08:20] LABS: Actual Bicarbonate (HCO3a) 13.7 mEq/L (22-26); Base Excess (BEa) -11.6 mEq/L (0 (+/-) 2.5); CO2 Tension 29.5 mmHg (35.0-45.0); pH, Arterial 7.29 (7.35-7.45)
[2017-07-23 08:21] LABS: ALV-art Gradient 291.145 (0-20); Calcium, Ionized 1.1 mmol/L (1.12-1.30); Hematocrit-ABG 34.8 % (36.0-47.0); Hemoglobin (Hb) 11.4 g/dL (12.0-16.0); Puncture Site RRA
[2017-07-23] MEDS: Nicotine 21 MG PATCH TD SCH (08:46)
[2017-07-23] MEDS: Vecuronium 10 MG VIAL IVP PRN ×3 (08:49→19:44)
[2017-07-23] MEDS: Pantoprazole 40 MG VIAL IVP SCH (08:49)
[2017-07-23] MEDS: Heparin 5,000 UNITS/ML VIAL SC SCH ×3 (08:49→19:51)
[2017-07-23] MEDS: Magnesium Oxide 400 MG TAB PO SCH (08:50)
[2017-07-23] MEDS: Losartan 25 MG TAB PO SCH (08:50)
[2017-07-23] MEDS: Aripiprazole 10 MG TAB PO SCH (08:50)
[2017-07-23] MEDS: Multivitamin W/ Minerals 1 TAB PO SCH (08:51)
[2017-07-23] MEDS: Venlafaxine HCl XR 150 MG CAP PO SCH (08:51)
--- NOTE | 2017-07-23 08:56 | PRG ---
DATE OF SERVICE: 07/23/2017 Thirty-five minutes critical care time. SUBJECTIVE: Patient remains intubated on mechanical ventilation, she is very agitated. It looks lik e her sedation protocol never got put into the computer by Pharmacy yesterday. Therefore, she has on ly been getting propofol overnight. It appears the nurse has been overriding orders to get that put in. OBJECTIVE: VITAL SIGNS: Temperature is 98.0, pulse 127, blood pressure 110/65, 24-hour intake 3766, output 1253 . HEENT: Unremarkable. NECK: No JVD. LUNGS: Coarse crackles. CARDIAC: S1 and S2, tachycardic. ABDOMEN: Soft, nontender. EXTREMITIES: No edema. LABORATORY DATA: White blood cell count 12.8, hematocrit 33, platelet count 121. ABG pending. Sodi um 137, potassium 2.7, chloride 114, CO2 of 15, BUN 32, creatinine 1.4, glucose 165. Chest x-ray viv ws bilateral infiltrates. Echocardiogram showed EF of 60%-65% with probability of diastolic dysfuncti on. ASSESSMENT: 1. Acute respiratory failure requiring mechanical ventilation. 2. Severe alcohol withdrawal. 3. Bilateral pneumonia. PLAN: 1. Continue mechanical ventilation. 2. Follow up on ABG results. 3. Replace potassium. 4. Increased level of sedation. 5. Continue antibiotics.
[2017-07-23] MEDS: Multivitamins, Adult 10 ML, Folic Acid 1 MG, Thiamine HCl 100 MG in Dextrose 5 %-0.45 %... IV SCH (09:23)
[2017-07-23] MEDS: Lorazepam 2 MG/ML VIAL SLOW IVP PRN ×3 (09:54→19:44)
[2017-07-23] MEDS: Propofol 1,000 MG/100 ML VIAL IV PRN ×2 (10:48→19:50)
--- NOTE | 2017-07-23 12:46 | PDOC.PN ---
- Subjective Encounter Start Date: 07/23/17 Encounter Start Time: 11:00 Subjective: pt intubated - Objective Vital Signs & Weight: Vital Signs (12 hours) Temp Pulse Resp BP 07/23/17 11:18 121 H 07/23/17 08:06 132 H 07/23/17 07:46 24 H 07/23/17 07:00 98.7 F 07/23/17 06:00 26 H 07/23/17 04:00 27 H 07/23/17 02:09 113 H 124/67 07/23/17 02:00 28 H Weight Admit Weight 163 lb 12.855 oz Weight 171 lb 1.259 oz Most Recent Monitor Data Heart Rate from ECG 117 NIBP 117/64 NIBP BP-Mean 84 Respiration from ECG 22 SpO2 100 I&O: 07/22/17 07/23/17 07/24/17 06:59 06:59 06:59 Intake Total 5336 3766 0 Output Total 1665 1253 55 Balance 3671 2513 -55 Result Diagrams: 07/23/17 03:49 07/23/17 03:49 Additional Labs: Accuchecks 07/23/17 07/23/17 07/23/17 11:15 06:23 00:33 POC Glucose 135 H 157 H 173 H 07/22/17 07/22/17 17:07 13:27 POC Glucose 154 H 109 Phys Exam - Physical Examination mild rhonchi and wheezing tachycardia Gastrointestinal: soft, positive bowel sounds Musculoskeletal: no edema unable to assess Dx/Plan - Plan 1) Acute hypoxic and hypercapnic resp failure 2) sepsis 3) Acute diastolic CHF 4) Afib with rvr 5) carter 6) alcohol withdrawal 7) blood cx one bottle positive for gram postive shantel plan: Pt currently intubated, on abx for now. Pt is on cardizam and cardiology has been consulted. Per notes pt was initially admitted at another hospital and was transferred here due to acute confusion. UA appears normal. CXR unable to visualize lung bases, fluid vs consolidation. will monitor * . Review of Systems - Review of Systems Other: unable to participate - Medications/Allergies Allergies/Adverse Reactions: Allergies Allergy/AdvReac Type Severity Reaction Status Date / Time Penicillins Allergy Verified 11/27/13 11:08 Medications: Current Medications Acetaminophen (Tylenol) 650 mg PO Q4H PRN PRN Reason: Headache/Fever or Pain Acetaminophen (Tylenol) 650 mg [place] Q4H PRN PRN Reason: Headache/Fever or Pain Albuterol/Ipratropium (Duoneb) 3 ml NEB [id number] [facility] Last Admin: 07/23/17 11:16 Dose: 3 ml Aripiprazole (Abilify) 5 mg PO DAILY [facility] Last Admin: 07/23/17 08:50 Dose: 5 mg Bisacodyl (Dulcolax) 10 mg PO DAILYPRN PRN PRN Reason: Constipation Dextrose/Water (Dextrose 50%) 25 gm SLOW IVP PRN PRN PRN Reason: Hypoglycemia Glucagon (Glucagon) 1 mg IM PRN PRN PRN Reason: Hypoglycemia Heparin Sodium (Porcine) (Heparin) 5,000 units SC TID [facility] Last Admin: 07/23/17 08:49 Dose: 5,000 units Multivitamins 10 ml/ Folic Acid 1 mg/ Thiamine HCl 100 mg / Dextrose/Sodium Chloride 1,011.2 mls @ 100 mls/hr IV Q24HR [facility] Last Admin: 07/23/17 09:23 Dose: 1,011.2 mls Dextrose/Water (D5w) 1,000 mls @ 0 mls/hr IV .Q0M PRN; As Directed PRN Reason: Hypoglycemia Sodium Chloride (Normal Saline 0.9%) 1,000 mls @ 100 mls/hr IV .Q10H [facility] Last Admin: 07/23/17 08:51 Dose: Not Given Clindamycin Phosphate/Dextrose (600 mg/ Device) 50 mls @ 100 mls/hr IVPB 0200, 1000,1800 [facility] Last Admin: 07/23/17 10:45 Dose: 50 mls Levofloxacin 250 mg/ Device 50 mls @ 100 mls/hr IVPB 1400 [facility] Vancomycin HCl 1.25 gm/ Sodium (Chloride) 250 mls @ 166.667 mls/hr IVPB 0600 [facility] Fentanyl Citrate 2,000 mcg/ (Sodium Chloride) 100 mls @ 0 mls/hr IV INF [facility]; Per Protocol PRN Reason: Protocol Stop: 08/22/17 07:50 Fentanyl Citrate (Fentanyl Bolus) 250 mls @ 0 mls/hr IVPB PRN PRN; As Directed PRN Reason: Breakthrough pain/agitation Stop: 08/22/17 07:50 Potassium Chloride 40 meq/ (Sodium Chloride) 270 mls @ 135 mls/hr IVPB ASDIR PRN PRN Reason: FOR SERUM K+ 2.5 - 3.5 Potassium Chloride 40 meq/ (Device) 100 mls @ 50 mls/hr IVPB ASDIR PRN PRN Reason: FOR SERUM K+ 2.5 - 3.5 Magnesium Sulfate 1 gm/ Sodium (Chloride) 102 mls @ 102 mls/hr IV PRN PRN PRN Reason: MAG LEVEL 1.4 - 2.0 Magnesium Sulfate 2 gm/ Device 100 mls @ 100 mls/hr IVPB ASDIR PRN PRN Reason: MAGNESIUM < 1.4 Potassium Phosphate 9 mmol/ (Sodium Chloride) 103 mls @ 25.75 mls/hr IVPB ASDIR PRN PRN Reason: Phosphate 1.0-1.8 Potassium Phosphate 12 mmol/ (Sodium Chloride) 254 mls @ 63.5 mls/hr IV ASDIR PRN PRN Reason: Serum phosphate 0.5-0.9 Potassium Phosphate 15 mmol/ (Sodium Chloride) 255 mls @ 63.75 mls/hr IV ASDIR PRN PRN Reason: Serum Phos < 0.5 Insulin Human Lispro (Humalog) 0 units SC .MILD SLIDING SCALE PRN PRN Reason: Mild Correctional Scale Last Admin: 07/23/17 06:26 Dose: 2 unit Iron/Minerals/Multivitamins (Theragran M) 1 tab PO DAILY [facility] Last Admin: 07/23/17 08:51 Dose: 1 tab Levothyroxine Sodium (Synthroid) 125 mcg PO 0600 [facility] Last Admin: 07/23/17 05:24 Dose: 125 mcg Lorazepam (Ativan) 1 mg SLOW IVP Q4H PRN PRN Reason: Anxiety/Agitation Last Admin: 07/23/17 09:54 Dose: 1 mg Lorazepam (Ativan) 2 mg SLOW IVP Q1H PRN PRN Reason: Breakthrough agitation Stop: 08/22/17 07:50 Losartan Potassium (Cozaar) 100 mg PO DAILY [facility] Last Admin: 07/23/17 08:50 Dose: 100 mg Magnesium Oxide (Magnesium Oxide) 400 mg PO DAILY [facility] Last Admin: 07/23/17 08:50 Dose: 400 mg Magnesium Oxide (Magnesium Oxide) 400 mg PO BIDPRN PRN PRN Reason: FOR SERUM MAG 1.4 - 2.0 Magnesium Oxide (Magnesium Oxide) 800 mg PO PRN PRN PRN Reason: FOR SERUM MAG < 1.4 Methylprednisolone Sodium Succinate (Solu-Medrol) 20 mg IVP 0400,1000,1600, 2200 [facility] Last Admin: 07/23/17 11:19 Dose: 20 mg Miscellaneous Medication (Pharmacy To Dose) 1 each IVPB DAILYPRN PRN PRN Reason: LABS Miscellaneous Medication (Ventilator Sedation Protocol) 1 each FS ONE [facility] Stop: 08/07/17 07:47 Miscellaneous Medication (Ccu Electrolyte Replacement) 1 each FS ONE [facility] Stop: 08/06/17 07:55 Miscellaneous Medication (Phos-Nak) 1 pkt PO TIDPRN PRN PRN Reason: FOR PHOS LEVEL 1.0 - 1.8 Miscellaneous Medication (Phos-Nak) 2 pkt PO TIDPRN PRN PRN Reason: FOR PHOS LEVEL 0.5 - 1.0 Morphine Sulfate (Morphine) 2 mg SLOW IVP Q1H PRN PRN Reason: breakthrough pain/agitation Stop: 08/22/17 07:50 Nicotine (Nicoderm Patch) 21 mg TD Q24HR [facility] Last Admin: 07/23/17 08:46 Dose: 21 mg Pantoprazole Sodium (Protonix) 40 mg PO DAILY [facility] Potassium Chloride (K-Dur) 40 meq PO ASDIR PRN PRN Reason: FOR SERUM K+ 2.5 - 3.5 Potassium Chloride (Klor-Con) 40 meq PER TUBE ASDIR PRN PRN Reason: FOR SERUM K+ 2.5-3.5 Propofol (Diprivan) 1,000 mg IV INF PRN; Protocol PRN Reason: TO ACHIEVE GOAL RASS Stop: 08/22/17 07:50 Last Admin: 07/23/17 10:48 Dose: 1,000 mg Propofol (Diprivan Bolus) 20 mg IV Q5MIN PRN PRN Reason: BREAKTHROUGH AGITATION Stop: 08/22/17 07:50 Sodium Chloride (Flush - Normal Saline) 10 ml IVF Q12HR [facility] Last Admin: 07/23/17 09:26 Dose: 10 ml Sodium Chloride (Flush - Normal Saline) 10 ml IVF PRN PRN PRN Reason: Saline Flush Last Admin: 07/22/17 05:50 Dose: 10 ml Thiamine HCl (Thiamine) 100 mg PO DAILY [facility] Last Admin: 07/23/17 08:51 Dose: 100 mg Vecuronium [place] (Norcuron) 10 mg IVP Q30MIN PRN PRN Reason: Agitation Last Admin: 07/23/17 08:49 Dose: 10 mg Venlafaxine HCl (Effexor Xr) 150 mg PO DAILY [facility] Last Admin: 07/23/17 08:51 Dose: 150 mg
[2017-07-23 15:35] LABS: Potassium 3.3 mmol/L (3.5-5.1)
[2017-07-24] MEDS: Clindamycin/D5W 600 MG in Premix Bag 1 BAG IVPB SCH ×3 (03:28→17:18)
[2017-07-24] MEDS: Lorazepam 2 MG/ML VIAL SLOW IVP PRN ×3 (03:29→17:19)
[2017-07-24] MEDS: Propofol 1,000 MG/100 ML VIAL IV PRN ×3 (03:39→17:18)
[2017-07-24] MEDS: Vecuronium 10 MG VIAL IVP PRN (03:40)
[2017-07-24 05:06] LABS: ALT (SGPT) 35 U/L (8-55); AST (SGOT) 40 U/L (5-34); Albumin 2.8 g/dL (3.4-4.8); Alkaline Phosphatase 136 U/L (40-150); Anion Gap 16 mmol/L (10-20); BUN (Urea Nitrogen) 30 mg/dL (9.8-20.1); Calc. Creatinine Clearance 49 mL/min (70-130); Calcium 7.7 mg/dL (7.8-10.44); Carbon Dioxide 12 mmol/L (23-31); Chloride 114 mmol/L (98-107); Estimated GFR-MDRD 40; Globulin 2.7 g/dL (2.4-3.5); Glucose 147 mg/dL (80-115); Potassium 3.4 mmol/L (3.5-5.1); Protein, Total 5.5 g/dL (6.0-8.3); Sodium 139 mmol/L (136-145)
[2017-07-24] MEDS: Levothyroxine Sodium 125 MCG TAB PO SCH (05:38)
[2017-07-24] MEDS: Sodium Chloride 0.9% 1,000 ML IV SCH (05:38)
[2017-07-24] MEDS ORDERED: Vancomycin HCl 1.25 GM in Sodium Chloride 0.9% 250 ML 250 ML IVPB SCH (06:00)
[2017-07-24 06:39] LABS: Anisocytosis SLIGHT = 6-15 cells (100X) (0-5/hpf); Band 4 % (5-11); Bite Cells SLIGHT = 2-5 cells (100X) (0-1/hpf); Hemoglobin 11.6 g/dL (12.0-16.0); Lymphocytes 5 % (21-51); MDiff Complete? YES; Macrocytosis MODERATE=16-30 cells (100X) (0-5/hpf); Mean Corpuscular HGB CONC 35.2 g/dL (32.0-36.0); Mean Corpuscular Hemoglobin 37.6 pg (27.0-31.0); Mean Platelet Volume 7.2 fL (7.4-10.4); Metamyelocyte 1 % (0-0); Monocytes 7 % (0-10); Myelocyte 1 % (0-0); Neutrophil 82 % (42-75); PLT Morphology Comment Appears Decreased; Platelet Count 123 thou/uL (130-400); RBC Distribution Width 13.7 % (11.5-14.5); White Blood Cell (WBC) Count 10.3 thou/uL (4.8-10.8)
[2017-07-24 07:11] LABS: Actual Bicarbonate (HCO3a) 13.6 mEq/L (22-26); Base Excess (BEa) -11.2 mEq/L (0 (+/-) 2.5); CO2 Tension 27.5 mmHg (35.0-45.0); Hematocrit-ABG 32.6 % (36.0-47.0); Hemoglobin (Hb) 10.7 g/dL (12.0-16.0); O2 Tension (PaO2) 109.9 mmHg (80.0-100.0); pH, Arterial 7.31 (7.35-7.45)
[2017-07-24 07:14] LABS: ALV-art Gradient 140.925 (0-20); Calcium, Ionized 1.2 mmol/L (1.12-1.30); Puncture Site RRA
--- NOTE | 2017-07-24 08:31 | RAD ---
PORTABLE CHEST: Date: 07-24-17 Provided Clinical History: Respiratory insufficiency. FINDINGS: Comparison 07-23-17. Significant interval change with respect to the prior examination is not apparent. IMPRESSION: As above. POS: CHRISTY
[2017-07-24] MEDS: Losartan 25 MG TAB PO SCH (09:14)
[2017-07-24] MEDS: Nicotine 21 MG PATCH TD SCH (09:15)
[2017-07-24] MEDS: Aripiprazole 10 MG TAB PO SCH (09:15)
[2017-07-24] MEDS: Venlafaxine HCl XR 150 MG CAP PO SCH (09:16)
[2017-07-24] MEDS: Pantoprazole 40 MG GRANULES PACKET PO SCH (09:16)
[2017-07-24] MEDS: Magnesium Oxide 400 MG TAB PO SCH (09:16)
[2017-07-24] MEDS: Sodium Bicarbonate 70 MEQ in Sodium Chloride 0.45% 1,000 ML IV SCH ×2 (09:16→22:32)
--- NOTE | 2017-07-24 09:16 | PRG ---
DATE OF SERVICE: 07/24/2017 Thirty-five minutes critical care time. The patient remains paralyzed, on mechanical ventilation, on bilevel mode. PHYSICAL EXAMINATION: VITAL SIGNS: On exam, temperature is 97.6 with no fever overnight, pulse 116, blood pressure 134/91. A 24-hour intake 1461, output 1333. HEENT: Unremarkable. NECK: No JVD. LUNGS: Crackles bilaterally. CARDIOVASCULAR: S1 and S2 regular to tachycardic. ABDOMEN: Soft, nontender. EXTREMITIES: No edema. LABORATORY DATA: White blood cell count 10.3, hematocrit 33.1, platelet count 123. PH 7.31, pCO2 of 27, pO2 of 109. Sodium 139, potassium 3.4, chloride 114, CO2 of 12, BUN 30, creatinine 1.3, glucose 147. Chest x-ray shows improved bilateral infiltrates. ASSESSMENT: 1. Acute respiratory failure secondary to aspiration pneumonitis. 2. Alcohol withdrawal. 3. Urinary tract infection at the time of admission. 4. Metabolic acidosis. PLAN: 1. Add bicarbonate to IV fluids. 2. Not weanable at this time, but I do think we can back off on the paralysis. 3. Tube feeds were written for yesterday, but have not been started yet. I have instructed the nurs e to go ahead and start those today. 4. Updated family during a long family conference yesterday out in the waiting room.
[2017-07-24] MEDS: Multivitamin W/ Minerals 1 TAB PO SCH (09:17)
[2017-07-24] MEDS: Heparin 5,000 UNITS/ML VIAL SC SCH ×3 (09:18→20:36)
[2017-07-24] MEDS: Multivits W-Minerals Liquid 15mL UDCUP PO SCH (10:33)
--- NOTE | 2017-07-24 15:45 | PDOC.PN ---
- Subjective Encounter Start Date: 07/24/17 Encounter Start Time: 11:30 Subjective: pt intubated - Objective Vital Signs & Weight: Vital Signs (12 hours) Temp Pulse Resp Pulse Ox 07/24/17 14:00 22 H 07/24/17 13:28 92 07/24/17 13:00 98.8 F 07/24/17 12:00 22 H 07/24/17 10:41 115 H 07/24/17 10:00 22 H 07/24/17 09:00 22 H 07/24/17 08:00 98.4 F 117 H 22 H 97 07/24/17 07:04 117 H 07/24/17 07:00 98.8 F 07/24/17 06:00 22 H 07/24/17 03:52 22 H 07/24/17 03:50 97.6 F Weight Admit Weight 163 lb 12.855 oz Weight 171 lb 1.259 oz Most Recent Monitor Data Heart Rate from ECG 107 NIBP 163/85 NIBP BP-Mean 117 Respiration from ECG 21 SpO2 100 I&O: 07/23/17 07/24/17 07/25/17 06:59 06:59 06:59 Intake Total 3766 1461 50 Output Total 1253 1333 425 Balance 2513 128 -375 Result Diagrams: 07/25/17 06:00 07/25/17 06:00 Additional Labs: Accuchecks 07/24/17 07/24/17 07/24/17 11:18 06:13 00:32 POC Glucose 128 H 148 H 142 H 07/23/17 16:33 POC Glucose 159 H Phys Exam - Physical Examination HEENT: PERRLA, moist MMs, sclera anicteric, TM's clear, oral pharynx no lesions , 2+ tonsils Neck: no nodes, no JVD, supple, full ROM Respiratory: clear to auscultation bilateral Cardiovascular: RRR, no significant murmur, no rub, gallop, irregular Gastrointestinal: soft, non-tender, no distention, positive bowel sounds Dx/Plan - Plan 1) Acute hypoxic and hypercapnic resp failure 2) sepsis 3) Acute diastolic CHF 5) carter 6) alcohol withdrawal 7) aspiration pna 8) aneurysm basilar plan: Pt currently intubated, on abx for now. UA cx indicated ecoli, pt also being tx for aspiration pna. On alcohol withdrawal protocol. updated son. * . Review of Systems - Review of Systems Other: pt intubated - Medications/Allergies Allergies/Adverse Reactions: Allergies Allergy/AdvReac Type Severity Reaction Status Date / Time Penicillins Allergy Verified 11/27/13 11:08 Medications: Current Medications Acetaminophen (Tylenol) 650 mg PO Q4H PRN PRN Reason: Headache/Fever or Pain Acetaminophen (Tylenol) 650 mg MN Q4H PRN PRN Reason: Headache/Fever or Pain Albuterol/Ipratropium (Duoneb) 3 ml NEB [id number] [facility] Last Admin: 07/24/17 10:39 Dose: 3 ml Aripiprazole (Abilify) 5 mg PO DAILY [facility] Last Admin: 07/24/17 09:15 Dose: 5 mg Bisacodyl (Dulcolax) 10 mg PO DAILYPRN PRN PRN Reason: Constipation Dextrose/Water (Dextrose 50%) 25 gm SLOW IVP PRN PRN PRN Reason: Hypoglycemia Folic Acid (Folvite) 1 mg PO DAILY [facility] Glucagon (Glucagon) 1 mg IM PRN PRN PRN Reason: Hypoglycemia Heparin Sodium (Porcine) (Heparin) 5,000 units SC TID [facility] Last Admin: 07/24/17 14:14 Dose: 5,000 units Dextrose/Water (D5w) 1,000 mls @ 0 mls/hr IV .Q0M PRN; As Directed PRN Reason: Hypoglycemia Clindamycin Phosphate/Dextrose (600 mg/ Device) 50 mls @ 100 mls/hr IVPB 0200, 1000,1800 [facility] Last Admin: 07/24/17 09:27 Dose: 50 mls Levofloxacin 250 mg/ Device 50 mls @ 100 mls/hr IVPB 1400 [facility] Last Admin: 07/24/17 14:13 Dose: 50 mls Fentanyl Citrate 2,000 mcg/ (Sodium Chloride) 100 mls @ 0 mls/hr IV INF ISHAAN; Per Protocol PRN Reason: Protocol Stop: 08/22/17 07:50 Fentanyl Citrate (Fentanyl Bolus) 250 mls @ 0 mls/hr IVPB PRN PRN; As Directed PRN Reason: Breakthrough pain/agitation Stop: 08/22/17 07:50 Potassium Chloride 40 meq/ (Sodium Chloride) 270 mls @ 135 mls/hr IVPB ASDIR PRN PRN Reason: FOR SERUM K+ 2.5 - 3.5 Potassium Chloride 40 meq/ (Device) 100 mls @ 50 mls/hr IVPB ASDIR PRN PRN Reason: FOR SERUM K+ 2.5 - 3.5 Magnesium Sulfate 1 gm/ Sodium (Chloride) 102 mls @ 102 mls/hr IV PRN PRN PRN Reason: MAG LEVEL 1.4 - 2.0 Magnesium Sulfate 2 gm/ Device 100 mls @ 100 mls/hr IVPB ASDIR PRN PRN Reason: MAGNESIUM < 1.4 Potassium Phosphate 9 mmol/ (Sodium Chloride) 103 mls @ 25.75 mls/hr IVPB ASDIR PRN PRN Reason: Phosphate 1.0-1.8 Potassium Phosphate 12 mmol/ (Sodium Chloride) 254 mls @ 63.5 mls/hr IV ASDIR PRN PRN Reason: Serum phosphate 0.5-0.9 Potassium Phosphate 15 mmol/ (Sodium Chloride) 255 mls @ 63.75 mls/hr IV ASDIR PRN PRN Reason: Serum Phos < 0.5 Sodium Bicarbonate 70 meq/ (Sodium Chloride) 1,070 mls @ 75 mls/hr IV .[id number] [facility] Last Admin: 07/24/17 09:16 Dose: 1,070 mls Insulin Human Lispro (Humalog) 0 units SC .MILD SLIDING SCALE PRN PRN Reason: Mild Correctional Scale Last Admin: 07/23/17 16:33 Dose: 2 unit Iron/Minerals/Multivitamins (Certa Lisa Liquid) 15 ml PO DAILY [facility] Last Admin: 07/24/17 10:33 Dose: 15 ml Levothyroxine Sodium (Synthroid) 125 mcg PO 0600 [facility] Last Admin: 07/24/17 05:38 Dose: 125 mcg Lorazepam (Ativan) 2 mg SLOW IVP Q1H PRN PRN Reason: Breakthrough agitation Stop: 08/22/17 07:50 Last Admin: 07/24/17 10:53 Dose: 2 mg Losartan Potassium (Cozaar) 100 mg PO DAILY [facility] Last Admin: 07/24/17 09:14 Dose: 100 mg Magnesium Oxide (Magnesium Oxide) 400 mg PO DAILY [facility] Last Admin: 07/24/17 09:16 Dose: 400 mg Magnesium Oxide (Magnesium Oxide) 400 mg PO BIDPRN PRN PRN Reason: FOR SERUM MAG 1.4 - 2.0 Magnesium Oxide (Magnesium Oxide) 800 mg PO PRN PRN PRN Reason: FOR SERUM MAG < 1.4 Methylprednisolone Sodium Succinate (Solu-Medrol) 20 mg IVP BID [facility] Last Admin: 07/24/17 09:24 Dose: 20 mg Miscellaneous Medication (Ventilator Sedation Protocol) 1 each FS ONE [facility] Stop: 08/07/17 07:47 Miscellaneous Medication (Ccu Electrolyte Replacement) 1 each FS ONE [facility] Stop: 08/06/17 07:55 Miscellaneous Medication (Phos-Nak) 1 pkt PO TIDPRN PRN PRN Reason: FOR PHOS LEVEL 1.0 - 1.8 Miscellaneous Medication (Phos-Nak) 2 pkt PO TIDPRN PRN PRN Reason: FOR PHOS LEVEL 0.5 - 1.0 Morphine Sulfate (Morphine) 2 mg SLOW IVP Q1H PRN PRN Reason: breakthrough pain/agitation Stop: 08/22/17 07:50 Nicotine (Nicoderm Patch) 21 mg TD Q24HR [facility] Last Admin: 07/24/17 09:15 Dose: 21 mg Pantoprazole Sodium (Protonix) 40 mg PO DAILY [facility] Last Admin: 07/24/17 09:16 Dose: 40 mg Potassium Chloride (K-Dur) 40 meq PO ASDIR PRN PRN Reason: FOR SERUM K+ 2.5 - 3.5 Potassium Chloride (Klor-Con) 40 meq PER TUBE ASDIR PRN PRN Reason: FOR SERUM K+ 2.5-3.5 Last Admin: 07/24/17 10:29 Dose: 40 meq Propofol (Diprivan) 1,000 mg IV INF PRN; Protocol PRN Reason: TO ACHIEVE GOAL RASS Stop: 08/22/17 07:50 Last Admin: 07/24/17 10:42 Dose: 1,000 mg Propofol (Diprivan Bolus) 20 mg IV Q5MIN PRN PRN Reason: BREAKTHROUGH AGITATION Stop: 08/22/17 07:50 Sodium Chloride (Flush - Normal Saline) 10 ml IVF Q12HR [facility] Last Admin: 07/24/17 09:17 Dose: 10 ml Sodium Chloride (Flush - Normal Saline) 10 ml IVF PRN PRN PRN Reason: Saline Flush Last Admin: 07/24/17 03:43 Dose: 10 ml Thiamine HCl (Thiamine) 100 mg PO DAILY [facility] Last Admin: 07/24/17 09:17 Dose: 100 mg Vecuronium [place] (Norcuron) 10 mg IVP Q30MIN PRN PRN Reason: Agitation Last Admin: 07/24/17 03:40 Dose: 10 mg Venlafaxine HCl (Effexor Xr) 150 mg PO DAILY [facility] Last Admin: 07/24/17 09:16 Dose: 150 mg
[2017-07-24] MEDS: Multivitamins, Adult 10 ML, Folic Acid 1 MG, Thiamine HCl 100 MG in Dextrose 5 %-0.45 %... IV SCH (23:31)
[2017-07-25] MEDS: Propofol 1,000 MG/100 ML VIAL IV PRN ×4 (01:06→22:40)
[2017-07-25] MEDS ORDERED: Bacteriostatic Normal Saline 30 ML VIAL ONE (03:05)
[2017-07-25] MEDS: Clindamycin/D5W 600 MG in Premix Bag 1 BAG IVPB SCH ×3 (03:09→17:30)
[2017-07-25] MEDS: Vecuronium 10 MG VIAL IVP PRN (03:10)
[2017-07-25] MEDS: Levothyroxine Sodium 125 MCG TAB PO SCH (05:51)
[2017-07-25] MEDS: HumaLOG 300 UNITS/3 ML VIAL SC PRN (05:56)
[2017-07-25 06:26] LABS: Hemoglobin 11.1 g/dL (12.0-16.0); Mean Corpuscular HGB CONC 34.5 g/dL (32.0-36.0); Mean Corpuscular Hemoglobin 35.9 pg (27.0-31.0); Mean Platelet Volume 6.8 fL (7.4-10.4); Platelet Count 147 thou/uL (130-400); RBC Distribution Width 13.7 % (11.5-14.5); White Blood Cell (WBC) Count 13.6 thou/uL (4.8-10.8)
[2017-07-25 06:42] LABS: ALT (SGPT) 66 U/L (8-55); AST (SGOT) 92 U/L (5-34); Alkaline Phosphatase 244 U/L (40-150); Anion Gap 13 mmol/L (10-20); BUN (Urea Nitrogen) 38 mg/dL (9.8-20.1); Bilirubin, Total 1.7 mg/dL (0.2-1.2); Calc. Creatinine Clearance 49 mL/min (70-130); Calcium 8.3 mg/dL (7.8-10.44); Carbon Dioxide 18 mmol/L (23-31); Chloride 114 mmol/L (98-107); Estimated GFR-MDRD 38; Globulin 2.4 g/dL (2.4-3.5); Glucose 171 mg/dL (80-115); Protein, Total 5.4 g/dL (6.0-8.3); Sodium 141 mmol/L (136-145)
[2017-07-25 06:43] LABS: Band 5 % (5-11); Lymphocytes 3 % (21-51); MDiff Complete? YES; Metamyelocyte 1 % (0-0); Monocytes 7 % (0-10); Myelocyte 7 % (0-0); Neutrophil 77 % (42-75)
[2017-07-25 07:59] LABS: Actual Bicarbonate (HCO3a) 17.1 mEq/L (22-26); Base Excess (BEa) -7.7 mEq/L (0 (+/-) 2.5); CO2 Tension 32.4 mmHg (35.0-45.0); Calcium, Ionized 1.2 mmol/L (1.12-1.30); Hematocrit-ABG 30.6 % (36.0-47.0); Hemoglobin (Hb) 10.2 g/dL (12.0-16.0); O2 Tension (PaO2) 120.5 mmHg (80.0-100.0); Puncture Site RRA; pH, Arterial 7.34 (7.35-7.45)
--- NOTE | 2017-07-25 08:45 | RAD ---
PORTABLE CHEST: COMPARISON: Prior day's exam. HISTORY: Respiratory distress. Endotracheal and NG tubes are in satisfactory position. Interstitial alveolar lung changes are simil ar to the prior exam. No new process. IMPRESSION: Stable exam. POS: CHRISTY
[2017-07-25] MEDS: Aripiprazole 10 MG TAB PO SCH (09:22)
[2017-07-25] MEDS: Pantoprazole 40 MG GRANULES PACKET PO SCH (09:22)
[2017-07-25] MEDS: Heparin 5,000 UNITS/ML VIAL SC SCH ×3 (09:22→21:12)
[2017-07-25] MEDS: Folic Acid 1 MG TAB PO SCH (09:23)
[2017-07-25] MEDS: Losartan 25 MG TAB PO SCH (09:23)
[2017-07-25] MEDS: Magnesium Oxide 400 MG TAB PO SCH (09:23)
[2017-07-25] MEDS: Venlafaxine HCl XR 150 MG CAP PO SCH (09:23)
[2017-07-25] MEDS: Sodium Chloride 0.9% 1,000 ML IV SCH (09:48)
[2017-07-25] MEDS: Multivits W-Minerals Liquid 15mL UDCUP PO SCH (09:55)
[2017-07-25] MEDS: Nicotine 21 MG PATCH TD SCH (09:56)
--- NOTE | 2017-07-25 10:01 | PRG ---
DATE OF SERVICE: 07/25/2017 Thirty-five minutes critical care time. SUBJECTIVE: The patient remains intubated on mechanical ventilation. She only required 1 dose of pa ralytics overnight. OBJECTIVE: VITAL SIGNS: On exam, her temperature is 97.7, pulse 101, blood pressure 120/60, O2 saturation 100%, 24-hour intake 3154, output 1340. HEENT: Unremarkable. NECK: No JVD. LUNGS: Inspiratory crackles at the bases. CARDIOVASCULAR: S1 and S2, regular. ABDOMEN: Soft. EXTREMITIES: No edema. LABORATORY DATA: PH 7.34, pCO2 of 32, pO2 of 120 that is on bilevel 23/12 with FiO2 of 40%. White b lood cell count 13.6, hematocrit 32.3, platelet count 147. Sodium 141, potassium 4, chloride 114, CO 2 of 18, BUN 38, creatinine 1.3, glucose 171. Chest x-ray continues to show bilateral infiltrative c hanges. ASSESSMENT: 1. Acute respiratory failure, requiring mechanical ventilation. 2. Alcohol withdrawal. 3. Aspiration pneumonitis. 4. Underlying chronic obstructive pulmonary disease. PLAN: 1. Add Reglan for elevated residuals. 2. Switch to pressure control ventilation with plans to start weaning rate and PEEP. 3. Continue IV antibiotics and steroids. 4. Continue low-dose bicarbonate drip for metabolic acidosis.
[2017-07-25] MEDS: Lorazepam 2 MG/ML VIAL SLOW IVP PRN ×2 (11:36→23:50)
[2017-07-25] MEDS: Metoclopramide HCl 10 MG TAB PO SCH ×3 (11:36→23:50)
[2017-07-25] MEDS: Sodium Bicarbonate 70 MEQ in Sodium Chloride 0.45% 1,000 ML IV SCH (13:06)
--- NOTE | 2017-07-25 16:44 | PDOC.PN ---
- Subjective Encounter Start Date: 07/25/17 Encounter Start Time: 09:10 Subjective: pt is intubated - Objective Vital Signs & Weight: Vital Signs (12 hours) Temp Pulse Resp BP Pulse Ox 07/25/17 15:34 18 07/25/17 15:00 97.9 F 07/25/17 14:33 110 H 151/78 H 07/25/17 14:00 18 07/25/17 12:00 18 07/25/17 11:00 97.5 F L 07/25/17 10:45 119 H 157/77 H 07/25/17 10:00 18 07/25/17 08:00 97.7 F 100 22 H 117/59 L 100 07/25/17 07:00 97.7 F 07/25/17 06:00 22 H 07/25/17 05:00 97.7 F Weight Admit Weight 163 lb 12.855 oz Weight 177 lb 7.554 oz Most Recent Monitor Data Heart Rate from ECG 111 NIBP 131/73 NIBP BP-Mean 85 Respiration from ECG 18 SpO2 100 I&O: 07/24/17 07/25/17 07/26/17 06:59 06:59 06:59 Intake Total 1461 3154 170 Output Total 1333 1340 1630 Balance 128 1814 -1460 Result Diagrams: 07/25/17 06:00 07/25/17 06:00 Additional Labs: Accuchecks 07/25/17 07/25/17 07/25/17 12:44 05:53 00:07 POC Glucose 132 H 179 H 141 H 07/24/17 17:23 POC Glucose 134 H Phys Exam - Physical Examination HEENT: moist MMs intubated mild rhonchi noted tachycardia Gastrointestinal: soft, positive bowel sounds Musculoskeletal: edema present Dx/Plan - Plan 1) Acute hypoxic and hypercapnic resp failure 2) sepsis 3) Acute diastolic CHF 5) carter 6) alcohol withdrawal 7) Aspiration pna 8) aneurism basilar plan: Pt currently intubated, on abx for now. urine cx indicated ecoli. Pt also on abx for aspiration pna. pt on alcohol withdrawal protocol. neruosurg recommendation indicated that they will discuss with Dr christina since her aneurysm is large. * . Review of Systems - Review of Systems Other: pt intubated - Medications/Allergies Allergies/Adverse Reactions: Allergies Allergy/AdvReac Type Severity Reaction Status Date / Time Penicillins Allergy Verified 11/27/13 11:08 Medications: Current Medications Acetaminophen (Tylenol) 650 mg PO Q4H PRN PRN Reason: Headache/Fever or Pain Acetaminophen (Tylenol) 650 mg NC Q4H PRN PRN Reason: Headache/Fever or Pain Albuterol/Ipratropium (Duoneb) 3 ml NEB [id number] [facility] Last Admin: 07/25/17 14:32 Dose: 3 ml Aripiprazole (Abilify) 5 mg PO DAILY [facility] Last Admin: 07/25/17 09:22 Dose: 5 mg Bisacodyl (Dulcolax) 10 mg PO DAILYPRN PRN PRN Reason: Constipation Dextrose/Water (Dextrose 50%) 25 gm SLOW IVP PRN PRN PRN Reason: Hypoglycemia Folic Acid (Folvite) 1 mg PO DAILY [facility] Last Admin: 07/25/17 09:23 Dose: 1 mg Glucagon (Glucagon) 1 mg IM PRN PRN PRN Reason: Hypoglycemia Heparin Sodium (Porcine) (Heparin) 5,000 units SC TID [facility] Last Admin: 07/25/17 15:20 Dose: 5,000 units Dextrose/Water (D5w) 1,000 mls @ 0 mls/hr IV .Q0M PRN; As Directed PRN Reason: Hypoglycemia Clindamycin Phosphate/Dextrose (600 mg/ Device) 50 mls @ 100 mls/hr IVPB 0200, 1000,1800 [facility] Last Admin: 07/25/17 09:56 Dose: 50 mls Levofloxacin 250 mg/ Device 50 mls @ 100 mls/hr IVPB 1400 [facility] Last Admin: 07/25/17 13:06 Dose: 50 mls Fentanyl Citrate 2,000 mcg/ (Sodium Chloride) 100 mls @ 0 mls/hr IV INF [facility]; Per Protocol PRN Reason: Protocol Stop: 08/22/17 07:50 Fentanyl Citrate (Fentanyl Bolus) 250 mls @ 0 mls/hr IVPB PRN PRN; As Directed PRN Reason: Breakthrough pain/agitation Stop: 08/22/17 07:50 Potassium Chloride 40 meq/ (Sodium Chloride) 270 mls @ 135 mls/hr IVPB ASDIR PRN PRN Reason: FOR SERUM K+ 2.5 - 3.5 Potassium Chloride 40 meq/ (Device) 100 mls @ 50 mls/hr IVPB ASDIR PRN PRN Reason: FOR SERUM K+ 2.5 - 3.5 Magnesium Sulfate 1 gm/ Sodium (Chloride) 102 mls @ 102 mls/hr IV PRN PRN PRN Reason: MAG LEVEL 1.4 - 2.0 Magnesium Sulfate 2 gm/ Device 100 mls @ 100 mls/hr IVPB ASDIR PRN PRN Reason: MAGNESIUM < 1.4 Potassium Phosphate 9 mmol/ (Sodium Chloride) 103 mls @ 25.75 mls/hr IVPB ASDIR PRN PRN Reason: Phosphate 1.0-1.8 Potassium Phosphate 12 mmol/ (Sodium Chloride) 254 mls @ 63.5 mls/hr IV ASDIR PRN PRN Reason: Serum phosphate 0.5-0.9 Potassium Phosphate 15 mmol/ (Sodium Chloride) 255 mls @ 63.75 mls/hr IV ASDIR PRN PRN Reason: Serum Phos < 0.5 Sodium Bicarbonate 70 meq/ (Sodium Chloride) 1,070 mls @ 75 mls/hr IV .[id number] [facility] Last Admin: 07/25/17 13:06 Dose: 1,070 mls Insulin Human Lispro (Humalog) 0 units SC .MILD SLIDING SCALE PRN PRN Reason: Mild Correctional Scale Last Admin: 07/25/17 05:56 Dose: 2 unit Iron/Minerals/Multivitamins (Certa Lisa Liquid) 15 ml PO DAILY [facility] Last Admin: 07/25/17 09:55 Dose: 15 ml Levothyroxine Sodium (Synthroid) 125 mcg PO 0600 [facility] Last Admin: 07/25/17 05:51 Dose: 125 mcg Lorazepam (Ativan) 2 mg SLOW IVP Q1H PRN PRN Reason: Breakthrough agitation Stop: 08/22/17 07:50 Last Admin: 07/25/17 11:36 Dose: 2 mg Losartan Potassium (Cozaar) 100 mg PO DAILY [facility] Last Admin: 07/25/17 09:23 Dose: 100 mg Magnesium Oxide (Magnesium Oxide) 400 mg PO DAILY [facility] Last Admin: 07/25/17 09:23 Dose: 400 mg Magnesium Oxide (Magnesium Oxide) 400 mg PO BIDPRN PRN PRN Reason: FOR SERUM MAG 1.4 - 2.0 Magnesium Oxide (Magnesium Oxide) 800 mg PO PRN PRN PRN Reason: FOR SERUM MAG < 1.4 Methylprednisolone Sodium Succinate (Solu-Medrol) 20 mg IVP BID [facility] Last Admin: 07/25/17 09:22 Dose: 20 mg Metoclopramide HCl (Reglan) 10 mg PO Q6HR [facility] Last Admin: 07/25/17 11:36 Dose: 10 mg Miscellaneous Medication (Ventilator Sedation Protocol) 1 each FS ONE [facility] Stop: 08/07/17 07:47 Miscellaneous Medication (Ccu Electrolyte Replacement) 1 each FS ONE [facility] Stop: 08/06/17 07:55 Miscellaneous Medication (Phos-Nak) 1 pkt PO TIDPRN PRN PRN Reason: FOR PHOS LEVEL 1.0 - 1.8 Miscellaneous Medication (Phos-Nak) 2 pkt PO TIDPRN PRN PRN Reason: FOR PHOS LEVEL 0.5 - 1.0 Morphine Sulfate (Morphine) 2 mg SLOW IVP Q1H PRN PRN Reason: breakthrough pain/agitation Stop: 08/22/17 07:50 Last Admin: 07/25/17 12:20 Dose: 2 mg Nicotine (Nicoderm Patch) 21 mg TD Q24HR [facility] Last Admin: 07/25/17 09:56 Dose: 21 mg Pantoprazole Sodium (Protonix) 40 mg PO DAILY [facility] Last Admin: 07/25/17 09:22 Dose: 40 mg Potassium Chloride (K-Dur) 40 meq PO ASDIR PRN PRN Reason: FOR SERUM K+ 2.5 - 3.5 Potassium Chloride (Klor-Con) 40 meq PER TUBE ASDIR PRN PRN Reason: FOR SERUM K+ 2.5-3.5 Last Admin: 07/24/17 10:29 Dose: 40 meq Propofol (Diprivan) 1,000 mg IV INF PRN; Protocol PRN Reason: TO ACHIEVE GOAL RASS Stop: 08/22/17 07:50 Last Admin: 07/25/17 15:20 Dose: 1,000 mg Propofol (Diprivan Bolus) 20 mg IV Q5MIN PRN PRN Reason: BREAKTHROUGH AGITATION Stop: 08/22/17 07:50 Sodium Chloride (Flush - Normal Saline) 10 ml IVF Q12HR [facility] Last Admin: 07/25/17 09:56 Dose: 10 ml Sodium Chloride (Flush - Normal Saline) 10 ml IVF PRN PRN PRN Reason: Saline Flush Last Admin: 07/24/17 03:43 Dose: 10 ml Thiamine HCl (Thiamine) 100 mg PO DAILY [facility] Last Admin: 07/25/17 09:23 Dose: 100 mg Vecuronium [place] (Norcuron) 10 mg IVP Q30MIN PRN PRN Reason: Agitation Last Admin: 07/25/17 03:10 Dose: 10 mg Venlafaxine HCl (Effexor Xr) 150 mg PO DAILY [facility] Last Admin: 07/25/17 09:23 Dose: 150 mg
[2017-07-26] MEDS: Clindamycin/D5W 600 MG in Premix Bag 1 BAG IVPB SCH ×3 (02:57→17:02)
[2017-07-26] MEDS: Sodium Bicarbonate 70 MEQ in Sodium Chloride 0.45% 1,000 ML IV SCH ×2 (03:37→14:28)
[2017-07-26] MEDS: Propofol 1,000 MG/100 ML VIAL IV PRN ×4 (04:45→23:25)
[2017-07-26] MEDS: Levothyroxine Sodium 125 MCG TAB PO SCH (05:14)
[2017-07-26] MEDS: Metoclopramide HCl 10 MG TAB PO SCH ×5 (05:14→23:30)
[2017-07-26 07:18] LABS: Actual Bicarbonate (HCO3a) 20.6 mEq/L (22-26); Base Excess (BEa) -3.5 mEq/L (0 (+/-) 2.5); CO2 Tension 32.8 mmHg (35.0-45.0); Hematocrit-ABG 24.5 % (36.0-47.0); Hemoglobin (Hb) 8.2 g/dL (12.0-16.0); O2 Tension (PaO2) 81.9 mmHg (80.0-100.0); pH, Arterial 7.42 (7.35-7.45)
[2017-07-26 07:19] LABS: Calcium, Ionized 1.2 mmol/L (1.12-1.30); Puncture Site LRA
--- NOTE | 2017-07-26 08:19 | PRG ---
DATE OF SERVICE: 07/26/2017 A 45 minutes critical care time. SUBJECTIVE: The patient remains intubated on mechanical ventilation. When sedation is stopped, she thrashes, does not follow commands specifically. PHYSICAL EXAMINATION: VITAL SIGNS: Temperature is 98.3, pulse 109, blood pressure 142/75. A 24-hour intake 3769, output 2 925. HEENT: Unremarkable. NECK: Without adenopathy or JVD. LUNGS: Coarse breath sounds. CARDIOVASCULAR: S1, S2, slightly tachycardic. ABDOMEN: Soft, nontender. EXTREMITIES: No edema. LABORATORY DATA: PH 7.42, pCO2 of 32, pO2 of 81on SIMV rate 18 with an inspiratory pressure of 11, P EEP 8, pressure support 10, FiO2 40%. The other labs were not done today. X-RAY FINDINGS: Chest x-ray continues to show bilateral infiltrative changes. ASSESSMENT: 1. Alcohol withdrawal/delirium tremens. 2. Acute respiratory failure related to pneumonia. 3. Aspiration pneumonitis. 4. Underlying chronic obstructive pulmonary disease. PLAN: 1. Recheck labs tomorrow. 2. Begin to wean sedation. 3. She is currently on a bicarbonate drip for a severe metabolic acidosis. My guess is that may be able to be stopped by tomorrow. 4. Likely, we will also need to begin diuresis in the next couple of days. 5. Continuing antibiotics - needs to go 7 days on those.
--- NOTE | 2017-07-26 08:36 | RAD ---
AP VIEW CHEST: HISTORY: Ventilator-dependent patient. FINDINGS: AP view chest was obtained on 07/26/17. Comparison is made to previous exam from 07/25/17. AP view chest demonstrates nasogastric and endotracheal tubes to be in place. Cardiomegaly is seen. Pulmonary vascular congestion is seen. There are diffuse airspace opacities in the lung parenchyma which is unchanged since the previous exa m. IMPRESSION: 1. Nasogastric and endotracheal tubes in place. 2. Pulmonary vascular congestion and diffuse airspace opacities. POS: [facility]
[2017-07-26] MEDS: Nicotine 21 MG PATCH TD SCH (09:34)
[2017-07-26] MEDS: Heparin 5,000 UNITS/ML VIAL SC SCH ×3 (09:34→20:32)
[2017-07-26] MEDS: Aripiprazole 10 MG TAB PO SCH (09:34)
[2017-07-26] MEDS: Losartan 25 MG TAB PO SCH (09:34)
[2017-07-26] MEDS: Pantoprazole 40 MG GRANULES PACKET PO SCH (09:34)
[2017-07-26] MEDS: Magnesium Oxide 400 MG TAB PO SCH (09:35)
[2017-07-26] MEDS: Folic Acid 1 MG TAB PO SCH (09:35)
[2017-07-26] MEDS: Venlafaxine HCl XR 150 MG CAP PO SCH (09:35)
[2017-07-26] MEDS: Lorazepam 2 MG/ML VIAL SLOW IVP PRN ×3 (09:42→14:28)
[2017-07-26] MEDS: Multivits W-Minerals Liquid 15mL UDCUP PO SCH (10:28)
--- NOTE | 2017-07-26 14:57 | PDOC.PN ---
- Subjective Encounter Start Date: 07/26/17 Encounter Start Time: 07:20 Pt seen for followup re: acute respiratory failure. Intubated, unable to complete ROS. - Objective MAR Reviewed: Yes Vital Signs & Weight: Vital Signs (12 hours) Temp Pulse Resp BP Pulse Ox 07/26/17 11:00 98 F 07/26/17 10:31 123 H 189/104 H 07/26/17 10:30 124 H 22 H 93 L 07/26/17 10:00 24 H 07/26/17 08:00 98.3 F 114 H 27 H 07/26/17 07:00 98.3 F 07/26/17 06:59 107 H 148/80 H 07/26/17 06:56 112 H 18 96 07/26/17 06:00 18 07/26/17 04:00 98.3 F 18 07/26/17 02:09 103 H 134/73 07/26/17 02:00 18 Weight Admit Weight 163 lb 12.855 oz Weight 178 lb 9.191 oz Most Recent Monitor Data Heart Rate from ECG 130 NIBP 179/100 NIBP BP-Mean 125 Respiration from ECG 25 SpO2 84 I&O: 07/25/17 07/26/17 07/27/17 06:59 06:59 06:59 Intake Total 3154 3769 60 Output Total 1340 2925 455 Balance 1814 844 -395 Result Diagrams: 07/25/17 06:00 07/25/17 06:00 Additional Labs: Accuchecks 07/26/17 07/26/17 07/26/17 09:40 06:19 00:09 POC Glucose 74 104 125 H 07/25/17 18:09 POC Glucose 124 H EKG Reviewed by me: Yes (Tele: sinus tachycardia) Phys Exam - Physical Examination Intubated HEENT: moist MMs ETT Neck: no nodes Respiratory: clear to auscultation bilateral Cardiovascular: RRR Gastrointestinal: soft Neurological: moves all 4 limbs Deviation from normal: Unable to assess Dx/Plan (1) Acute respiratory failure Code(s): J96.00 - ACUTE RESPIRATORY FAILURE, UNSP W HYPOXIA OR HYPERCAPNIA Status: Acute Qualifiers: Respiratory failure complication: hypoxia Qualified Code(s): J96.01 - Acute respiratory failure with hypoxia (2) Aspiration pneumonia Code(s): J69.0 - PNEUMONITIS DUE TO INHALATION OF FOOD AND VOMIT Status: Acute Comment: continue IV antibiotics as below (3) Alcohol withdrawal Code(s): F10.239 - ALCOHOL DEPENDENCE WITH WITHDRAWAL, UNSPECIFIED Status: Acute Comment: on ASE protocol (4) UTI (urinary tract infection) Status: Acute Comment: continue IV antibiotics as below - Plan * . Review of Systems - Medications/Allergies Allergies/Adverse Reactions: Allergies Allergy/AdvReac Type Severity Reaction Status Date / Time Penicillins Allergy Verified 11/27/13 11:08 Medications: Current Medications Acetaminophen (Tylenol) 650 mg PO Q4H PRN PRN Reason: Headache/Fever or Pain Acetaminophen (Tylenol) 650 mg [place] Q4H PRN PRN Reason: Headache/Fever or Pain Albuterol/Ipratropium (Duoneb) 3 ml NEB [id number] [facility] Last Admin: 07/26/17 14:57 Dose: 3 ml Aripiprazole (Abilify) 5 mg PO DAILY [facility] Last Admin: 07/26/17 09:34 Dose: 5 mg Bisacodyl (Dulcolax) 10 mg PO DAILYPRN PRN PRN Reason: Constipation Dextrose/Water (Dextrose 50%) 25 gm SLOW IVP PRN PRN PRN Reason: Hypoglycemia Folic Acid (Folvite) 1 mg PO DAILY [facility] Last Admin: 07/26/17 09:35 Dose: 1 mg Glucagon (Glucagon) 1 mg IM PRN PRN PRN Reason: Hypoglycemia Heparin Sodium (Porcine) (Heparin) 5,000 units SC TID [facility] Last Admin: 07/26/17 14:28 Dose: 5,000 units Dextrose/Water (D5w) 1,000 mls @ 0 mls/hr IV .Q0M PRN; As Directed PRN Reason: Hypoglycemia Clindamycin Phosphate/Dextrose (600 mg/ Device) 50 mls @ 100 mls/hr IVPB 0200, 1000,1800 [facility] Last Admin: 07/26/17 17:02 Dose: 50 mls Levofloxacin 250 mg/ Device 50 mls @ 100 mls/hr IVPB 1400 [facility] Last Admin: 07/26/17 14:27 Dose: 50 mls Fentanyl Citrate 2,000 mcg/ (Sodium Chloride) 100 mls @ 0 mls/hr IV INF ISHAAN; Per Protocol PRN Reason: Protocol Stop: 08/22/17 07:50 Fentanyl Citrate (Fentanyl Bolus) 250 mls @ 0 mls/hr IVPB PRN PRN; As Directed PRN Reason: Breakthrough pain/agitation Stop: 08/22/17 07:50 Potassium Chloride 40 meq/ (Sodium Chloride) 270 mls @ 135 mls/hr IVPB ASDIR PRN PRN Reason: FOR SERUM K+ 2.5 - 3.5 Potassium Chloride 40 meq/ (Device) 100 mls @ 50 mls/hr IVPB ASDIR PRN PRN Reason: FOR SERUM K+ 2.5 - 3.5 Magnesium Sulfate 1 gm/ Sodium (Chloride) 102 mls @ 102 mls/hr IV PRN PRN PRN Reason: MAG LEVEL 1.4 - 2.0 Magnesium Sulfate 2 gm/ Device 100 mls @ 100 mls/hr IVPB ASDIR PRN PRN Reason: MAGNESIUM < 1.4 Potassium Phosphate 9 mmol/ (Sodium Chloride) 103 mls @ 25.75 mls/hr IVPB ASDIR PRN PRN Reason: Phosphate 1.0-1.8 Potassium Phosphate 12 mmol/ (Sodium Chloride) 254 mls @ 63.5 mls/hr IV ASDIR PRN PRN Reason: Serum phosphate 0.5-0.9 Potassium Phosphate 15 mmol/ (Sodium Chloride) 255 mls @ 63.75 mls/hr IV ASDIR PRN PRN Reason: Serum Phos < 0.5 Sodium Bicarbonate 70 meq/ (Sodium Chloride) 1,070 mls @ 75 mls/hr IV .[id number] [facility] Last Admin: 07/26/17 14:28 Dose: 1,070 mls Insulin Human Lispro (Humalog) 0 units SC .MILD SLIDING SCALE PRN PRN Reason: Mild Correctional Scale Last Admin: 07/25/17 05:56 Dose: 2 unit Iron/Minerals/Multivitamins (Certa Lisa Liquid) 15 ml PO DAILY [facility] Last Admin: 07/26/17 10:28 Dose: 15 ml Levothyroxine Sodium (Synthroid) 125 mcg PO 0600 [facility] Last Admin: 07/26/17 05:14 Dose: 125 mcg Lorazepam (Ativan) 2 mg SLOW IVP Q1H PRN PRN Reason: Breakthrough agitation Stop: 08/22/17 07:50 Last Admin: 07/26/17 14:28 Dose: 2 mg Losartan Potassium (Cozaar) 100 mg PO DAILY [facility] Last Admin: 07/26/17 09:34 Dose: 100 mg Magnesium Oxide (Magnesium Oxide) 400 mg PO DAILY [facility] Last Admin: 07/26/17 09:35 Dose: 400 mg Magnesium Oxide (Magnesium Oxide) 400 mg PO BIDPRN PRN PRN Reason: FOR SERUM MAG 1.4 - 2.0 Magnesium Oxide (Magnesium Oxide) 800 mg PO PRN PRN PRN Reason: FOR SERUM MAG < 1.4 Methylprednisolone Sodium Succinate (Solu-Medrol) 20 mg IVP BID [facility] Last Admin: 07/26/17 09:35 Dose: 20 mg Metoclopramide HCl (Reglan) 10 mg PO Q6HR [facility] Last Admin: 07/26/17 17:02 Dose: Not Given Miscellaneous Medication (Ventilator Sedation Protocol) 1 each FS ONE [facility] Stop: 08/07/17 07:47 Miscellaneous Medication (Ccu Electrolyte Replacement) 1 each FS ONE [facility] Stop: 08/06/17 07:55 Miscellaneous Medication (Phos-Nak) 1 pkt PO TIDPRN PRN PRN Reason: FOR PHOS LEVEL 1.0 - 1.8 Miscellaneous Medication (Phos-Nak) 2 pkt PO TIDPRN PRN PRN Reason: FOR PHOS LEVEL 0.5 - 1.0 Morphine Sulfate (Morphine) 2 mg SLOW IVP Q1H PRN PRN Reason: breakthrough pain/agitation Stop: 08/22/17 07:50 Last Admin: 07/25/17 12:20 Dose: 2 mg Nicotine (Nicoderm Patch) 21 mg TD Q24HR [facility] Last Admin: 07/26/17 09:34 Dose: 21 mg Pantoprazole Sodium (Protonix) 40 mg PO DAILY [facility] Last Admin: 07/26/17 09:34 Dose: 40 mg Potassium Chloride (K-Dur) 40 meq PO ASDIR PRN PRN Reason: FOR SERUM K+ 2.5 - 3.5 Potassium Chloride (Klor-Con) 40 meq PER TUBE ASDIR PRN PRN Reason: FOR SERUM K+ 2.5-3.5 Last Admin: 07/24/17 10:29 Dose: 40 meq Propofol (Diprivan) 1,000 mg IV INF PRN; Protocol PRN Reason: TO ACHIEVE GOAL RASS Stop: 08/22/17 07:50 Last Admin: 07/26/17 14:28 Dose: 1,000 mg Propofol (Diprivan Bolus) 20 mg IV Q5MIN PRN PRN Reason: BREAKTHROUGH AGITATION Stop: 08/22/17 07:50 Sodium Chloride (Flush - Normal Saline) 10 ml IVF Q12HR [facility] Last Admin: 07/26/17 09:35 Dose: 10 ml Sodium Chloride (Flush - Normal Saline) 10 ml IVF PRN PRN PRN Reason: Saline Flush Last Admin: 07/26/17 09:35 Dose: 10 ml Thiamine HCl (Thiamine) 100 mg PO DAILY [facility] Last Admin: 07/26/17 09:35 Dose: 100 mg Vecuronium [place] (Norcuron) 10 mg IVP Q30MIN PRN PRN Reason: Agitation Last Admin: 07/25/17 03:10 Dose: 10 mg Venlafaxine HCl (Effexor Xr) 150 mg PO DAILY [facility] Last Admin: 07/26/17 09:35 Dose: 150 mg
[2017-07-26] MEDS: HumaLOG 300 UNITS/3 ML VIAL SC PRN (23:30)
[2017-07-27] MEDS: Clindamycin/D5W 600 MG in Premix Bag 1 BAG IVPB SCH ×3 (03:36→17:16)
[2017-07-27 04:26] LABS: Band 12 % (5-11); Hemoglobin 11.1 g/dL (12.0-16.0); Lymphocytes 9 % (21-51); MDiff Complete? YES; Mean Corpuscular HGB CONC 34.9 g/dL (32.0-36.0); Mean Platelet Volume 7.1 fL (7.4-10.4); Monocytes 2 % (0-10); Myelocyte 3 % (0-0); Neutrophil 74 % (42-75); Platelet Count 212 thou/uL (130-400); RBC Distribution Width 13.7 % (11.5-14.5); Red Blood Cell (RBC) Count 3.07 mill/uL (4.20-5.40); White Blood Cell (WBC) Count 17.6 thou/uL (4.8-10.8)
[2017-07-27 04:27] LABS: Anion Gap 15 mmol/L (10-20); BUN (Urea Nitrogen) 42 mg/dL (9.8-20.1); Calc. Creatinine Clearance 64 mL/min (70-130); Calcium 8.9 mg/dL (7.8-10.44); Carbon Dioxide 23 mmol/L (23-31); Chloride 111 mmol/L (98-107); Estimated GFR-MDRD 51; Glucose 156 mg/dL (80-115); Sodium 145 mmol/L (136-145)
[2017-07-27] MEDS: Levothyroxine Sodium 125 MCG TAB PO SCH (05:38)
[2017-07-27] MEDS: Metoclopramide HCl 10 MG TAB PO SCH ×2 (05:38→06:06)
[2017-07-27] MEDS: HumaLOG 300 UNITS/3 ML VIAL SC PRN ×2 (06:27→14:46)
[2017-07-27] MEDS: Propofol 1,000 MG/100 ML VIAL IV PRN ×3 (06:33→17:16)
[2017-07-27] MEDS ORDERED: Furosemide 40 MG/4 ML VIAL SLOW IVP SCH (08:15)
--- NOTE | 2017-07-27 08:32 | PRG ---
DATE OF SERVICE: 07/27/2017 SERVICE: Pulmonary Medicine. INTERVAL HISTORY: The patient is doing okay from a respiratory standpoint. We held her sedation. A lmost immediately, she became tachypneic. She was unable to tolerate a spontaneous breathing trial f or very long. After about 10 minutes, we put her back on mechanical ventilation and restart her elizabeth tion. It did not appear that there was any physiologic drive that caused her to fail her CPAP trial. She does have a prolonged expiratory phase and when she becomes tachypneic, she has a hard time milad aring her breath. That being said, her minute volume over went out by a factor of 2-1/2 despite the fact that she was getting better volumes than prior to the trial. Otherwise, there were no events. PHYSICAL EXAMINATION: VITAL SIGNS: Afebrile, pulse 93, blood pressure 145/74, respirations 17, saturation 98% on 27% FIO2 and a PEEP of 5. GENERAL: The patient is intubated and sedated. HEENT: Normocephalic, atraumatic. Sclerae are white, conjunctivae pink. Oral and nasal mucosa is m oist without lesions. LUNGS: Decent air entry. There are prolonged expiratory phase. I do not appreciate any wheezing. Dependent crackles are present. HEART: Normal rate, regular. ABDOMEN: Soft, nontender, nondistended. Bowel sounds are positive. MUSCULOSKELETAL: No cyanosis or clubbing. There is 1+ pitting throughout. GENITOURINARY: No Li. NEUROLOGIC: Grossly nonfocal. LABORATORY DATA: WBC is up trending to 17.6, hemoglobin 11.1, platelets 212,000. Band count has inc reased to 12%. PH 7.42, pCO2 32, pO2 82. Creatinine 1.06 and downtrending beautifully. Basic metab olic profile is otherwise unremarkable. Chloride 111, sodium 145 and up trending. Urinalysis is pos itive for white blood cells. Plasma alcohol, acetaminophen, and salicylates are all unremarkable. U rine culture is growing mostly sensitive E. coli. IMAGING: Chest x-ray demonstrates endotracheal tube is in decent position. It has actually directed towards the right main stem and only 1 cm above the laith. Interstitial fullness is present. Ther e is fluid in the fissure. Bilateral blunting of the costophrenic angle is present, possibly suggest ing small amounts of fluid in the pleural space. Enteric catheter courses below the level of the michela phragm in the midline. ASSESSMENT: 1. Acute hypoxic respiratory failure. 2. Delirium tremens. 3. Metabolic encephalopathy. 4. Chronic obstructive pulmonary disease with acute exacerbation. PLAN: We will put her on Precedex to see if this is effective at controlling her brain. Hopefully, we can wean the propofol. If she is more appropriate this afternoon, we will reattempt a spontaneous breathing trial. I will continue to diurese the patient to euvolemia. I will give her a little bit of free water and interrupt her bicarbonate drip as her kidney function is improved dramatically. P ulmonary and Critical Care will continue to follow along. CRITICAL CARE TIME: 40 minutes.
--- NOTE | 2017-07-27 08:38 | RAD ---
PORTABLE CHEST: DATE: 07/27/17. PROVIDED CLINICAL HISTORY: Respiratory insufficiency. FINDINGS: Comparison 07/26/17. Mild improvement in bilateral airspace disease. Additional significant interval change with respect to the prior examination is not apparent. IMPRESSION: As above. POS: [facility]
[2017-07-27] MEDS: Heparin 5,000 UNITS/ML VIAL SC SCH ×3 (09:27→21:29)
[2017-07-27] MEDS: Aripiprazole 10 MG TAB PO SCH (09:27)
[2017-07-27] MEDS: Losartan 25 MG TAB PO SCH (09:29)
[2017-07-27] MEDS: Folic Acid 1 MG TAB PO SCH (09:29)
[2017-07-27] MEDS: Pantoprazole 40 MG GRANULES PACKET PO SCH (09:29)
[2017-07-27] MEDS: Dextrose 5% in Water 1,000 ML IV SCH ×2 (09:29→21:30)
[2017-07-27] MEDS: Magnesium Oxide 400 MG TAB PO SCH (09:30)
[2017-07-27] MEDS: Venlafaxine HCl XR 150 MG CAP PO SCH (09:30)
[2017-07-27] MEDS: Multivits W-Minerals Liquid 15mL UDCUP PO SCH (09:30)
[2017-07-27] MEDS: Sodium Bicarbonate 70 MEQ in Sodium Chloride 0.45% 1,000 ML IV SCH (09:45)
--- NOTE | 2017-07-27 13:02 | PDOC.PN ---
- Subjective Encounter Start Date: 07/27/17 Encounter Start Time: 08:20 Pt seen for followup re:acute respiratory failure. Intubated, unable to complete ROS. - Objective MAR Reviewed: Yes Vital Signs & Weight: Vital Signs (12 hours) Temp Pulse Resp BP Pulse Ox 07/27/17 12:00 12 07/27/17 11:00 98.3 F 07/27/17 10:59 106 H 142/64 H 07/27/17 10:00 29 H 07/27/17 08:00 97.9 F 93 17 07/27/17 07:46 93 145/74 H 07/27/17 07:00 97.9 F 07/27/17 06:00 17 07/27/17 04:49 92 07/27/17 04:00 97.9 F 17 07/27/17 02:54 99 07/27/17 02:52 97 18 94 L 07/27/17 02:00 19 Weight Admit Weight 163 lb 12.855 oz Weight 179 lb 14.355 oz Most Recent Monitor Data Heart Rate from ECG 105 NIBP 123/70 NIBP BP-Mean 79 Respiration from ECG 14 SpO2 100 I&O: 07/26/17 07/27/17 07/28/17 06:59 06:59 06:59 Intake Total 3769 3598 120 Output Total 2925 2630 1890 Balance 844 278 -9800 Result Diagrams: 07/27/17 03:40 07/27/17 03:40 Additional Labs: Accuchecks 07/27/17 07/26/17 07/26/17 09:14 23:31 14:40 POC Glucose 115 H 168 H 145 H EKG Reviewed by me: Yes (Tele: sinus tachycardia) Phys Exam - Physical Examination Intubated HEENT: moist MMs ETT Trachea midline Respiratory: clear to auscultation bilateral S1, S2, tachy Gastrointestinal: soft, positive bowel sounds Neurological: moves all 4 limbs Deviation from normal: Unable to assess Dx/Plan (1) Acute respiratory failure Code(s): J96.00 - ACUTE RESPIRATORY FAILURE, UNSP W HYPOXIA OR HYPERCAPNIA Status: Acute Qualifiers: Respiratory failure complication: hypoxia Qualified Code(s): J96.01 - Acute respiratory failure with hypoxia Comment: Intubated, PCCM following. (2) Aspiration pneumonia Code(s): J69.0 - PNEUMONITIS DUE TO INHALATION OF FOOD AND VOMIT Status: Acute Comment: continue IV antibiotics (3) Alcohol withdrawal Code(s): F10.239 - ALCOHOL DEPENDENCE WITH WITHDRAWAL, UNSPECIFIED Status: Acute Comment: on ASE protocol (4) UTI (urinary tract infection) Status: Acute Comment: continue IV antibiotics - Plan * . Review of Systems - Medications/Allergies Allergies/Adverse Reactions: Allergies Allergy/AdvReac Type Severity Reaction Status Date / Time Penicillins Allergy Verified 11/27/13 11:08 Medications: Current Medications Acetaminophen (Tylenol) 650 mg PO Q4H PRN PRN Reason: Headache/Fever or Pain Acetaminophen (Tylenol) 650 mg [place] Q4H PRN PRN Reason: Headache/Fever or Pain Albuterol/Ipratropium (Duoneb) 3 ml NEB [id number] [facility] Last Admin: 07/27/17 10:59 Dose: 3 ml Aripiprazole (Abilify) 5 mg PO DAILY [facility] Last Admin: 07/27/17 09:27 Dose: 5 mg Bisacodyl (Dulcolax) 10 mg PO DAILYPRN PRN PRN Reason: Constipation Dextrose/Water (Dextrose 50%) 25 gm SLOW IVP PRN PRN PRN Reason: Hypoglycemia Folic Acid (Folvite) 1 mg PO DAILY [facility] Last Admin: 07/27/17 09:29 Dose: 1 mg Furosemide (Lasix) 40 mg SLOW IVP 0600 ISHAAN Glucagon (Glucagon) 1 mg IM PRN PRN PRN Reason: Hypoglycemia Heparin Sodium (Porcine) (Heparin) 5,000 units SC TID [facility] Last Admin: 07/27/17 09:27 Dose: 5,000 units Dextrose/Water (D5w) 1,000 mls @ 0 mls/hr IV .Q0M PRN; As Directed PRN Reason: Hypoglycemia Clindamycin Phosphate/Dextrose (600 mg/ Device) 50 mls @ 100 mls/hr IVPB 0200, 1000,1800 [facility] Last Admin: 07/27/17 09:27 Dose: 50 mls Levofloxacin 250 mg/ Device 50 mls @ 100 mls/hr IVPB 1400 [facility] Last Admin: 07/26/17 14:27 Dose: 50 mls Fentanyl Citrate 2,000 mcg/ (Sodium Chloride) 100 mls @ 0 mls/hr IV INF ISHAAN; Per Protocol PRN Reason: Protocol Stop: 08/22/17 07:50 Fentanyl Citrate (Fentanyl Bolus) 250 mls @ 0 mls/hr IVPB PRN PRN; As Directed PRN Reason: Breakthrough pain/agitation Stop: 08/22/17 07:50 Potassium Chloride 40 meq/ (Sodium Chloride) 270 mls @ 135 mls/hr IVPB ASDIR PRN PRN Reason: FOR SERUM K+ 2.5 - 3.5 Potassium Chloride 40 meq/ (Device) 100 mls @ 50 mls/hr IVPB ASDIR PRN PRN Reason: FOR SERUM K+ 2.5 - 3.5 Magnesium Sulfate 1 gm/ Sodium (Chloride) 102 mls @ 102 mls/hr IV PRN PRN PRN Reason: MAG LEVEL 1.4 - 2.0 Magnesium Sulfate 2 gm/ Device 100 mls @ 100 mls/hr IVPB ASDIR PRN PRN Reason: MAGNESIUM < 1.4 Potassium Phosphate 9 mmol/ (Sodium Chloride) 103 mls @ 25.75 mls/hr IVPB ASDIR PRN PRN Reason: Phosphate 1.0-1.8 Potassium Phosphate 12 mmol/ (Sodium Chloride) 254 mls @ 63.5 mls/hr IV ASDIR PRN PRN Reason: Serum phosphate 0.5-0.9 Potassium Phosphate 15 mmol/ (Sodium Chloride) 255 mls @ 63.75 mls/hr IV ASDIR PRN PRN Reason: Serum Phos < 0.5 Dextrose/Water (D5w) 1,000 mls @ 75 mls/hr IV .[id number] [facility] Last Admin: 07/27/17 09:29 Dose: 1,000 mls Dexmedetomidine HCl 200 mcg/ (Sodium Chloride) 50 mls @ 0 mls/hr IVPB INF ISHAAN; Per Protocol PRN Reason: Protocol Last Admin: 07/27/17 09:30 Dose: 50 mls Insulin Human Lispro (Humalog) 0 units SC .MILD SLIDING SCALE PRN PRN Reason: Mild Correctional Scale Last Admin: 07/27/17 06:27 Dose: 2 unit Iron/Minerals/Multivitamins (Certa Lisa Liquid) 15 ml PO DAILY [facility] Last Admin: 07/27/17 09:30 Dose: 15 ml Levothyroxine Sodium (Synthroid) 125 mcg PO 0600 [facility] Last Admin: 07/27/17 05:38 Dose: 125 mcg Lorazepam (Ativan) 2 mg SLOW IVP Q1H PRN PRN Reason: Breakthrough agitation Stop: 08/22/17 07:50 Last Admin: 07/26/17 14:28 Dose: 2 mg Losartan Potassium (Cozaar) 100 mg PO DAILY [facility] Last Admin: 07/27/17 09:29 Dose: 100 mg Magnesium Oxide (Magnesium Oxide) 400 mg PO DAILY [facility] Last Admin: 07/27/17 09:30 Dose: 400 mg Magnesium Oxide (Magnesium Oxide) 400 mg PO BIDPRN PRN PRN Reason: FOR SERUM MAG 1.4 - 2.0 Magnesium Oxide (Magnesium Oxide) 800 mg PO PRN PRN PRN Reason: FOR SERUM MAG < 1.4 Methylprednisolone Sodium Succinate (Solu-Medrol) 20 mg IVP BID [facility] Last Admin: 07/27/17 09:31 Dose: 20 mg Miscellaneous Medication (Ventilator Sedation Protocol) 1 each FS ONE [facility] Stop: 08/07/17 07:47 Miscellaneous Medication (Ccu Electrolyte Replacement) 1 each FS ONE [facility] Stop: 08/06/17 07:55 Miscellaneous Medication (Phos-Nak) 1 pkt PO TIDPRN PRN PRN Reason: FOR PHOS LEVEL 1.0 - 1.8 Miscellaneous Medication (Phos-Nak) 2 pkt PO TIDPRN PRN PRN Reason: FOR PHOS LEVEL 0.5 - 1.0 Pantoprazole Sodium (Protonix) 40 mg PO DAILY [facility] Last Admin: 07/27/17 09:29 Dose: 40 mg Potassium Chloride (K-Dur) 40 meq PO ASDIR PRN PRN Reason: FOR SERUM K+ 2.5 - 3.5 Potassium Chloride (Klor-Con) 40 meq PER TUBE ASDIR PRN PRN Reason: FOR SERUM K+ 2.5-3.5 Last Admin: 07/24/17 10:29 Dose: 40 meq Propofol (Diprivan) 1,000 mg IV INF PRN; Protocol PRN Reason: TO ACHIEVE GOAL RASS Stop: 08/22/17 07:50 Last Admin: 07/27/17 10:24 Dose: 1,000 mg Propofol (Diprivan Bolus) 20 mg IV Q5MIN PRN PRN Reason: BREAKTHROUGH AGITATION Stop: 08/22/17 07:50 Sodium Chloride (Flush - Normal Saline) 10 ml IVF Q12HR [facility] Last Admin: 07/27/17 09:30 Dose: 10 ml Sodium Chloride (Flush - Normal Saline) 10 ml IVF PRN PRN PRN Reason: Saline Flush Last Admin: 07/27/17 09:30 Dose: 10 ml Thiamine HCl (Thiamine) 100 mg PO DAILY [facility] Last Admin: 07/27/17 09:30 Dose: 100 mg Venlafaxine HCl (Effexor Xr) 150 mg PO DAILY [facility] Last Admin: 07/27/17 09:30 Dose: 150 mg
[2017-07-28] MEDS: Clindamycin/D5W 600 MG in Premix Bag 1 BAG IVPB SCH ×3 (03:04→17:01)
[2017-07-28] MEDS: HumaLOG 300 UNITS/3 ML VIAL SC PRN ×2 (04:33→15:34)
[2017-07-28 04:52] LABS: Anion Gap 11 mmol/L (10-20); BUN (Urea Nitrogen) 36 mg/dL (9.8-20.1); Calc. Creatinine Clearance 77 mL/min (70-130); Calcium 8.9 mg/dL (7.8-10.44); Carbon Dioxide 27 mmol/L (23-31); Chloride 107 mmol/L (98-107); Estimated GFR-MDRD 63; Glucose 160 mg/dL (80-115); Potassium 3.3 mmol/L (3.5-5.1); Sodium 142 mmol/L (136-145)
[2017-07-28] MEDS: Propofol 1,000 MG/100 ML VIAL IV PRN (05:00)
[2017-07-28 05:09] LABS: Band 8 % (5-11); Hemoglobin 10.7 g/dL (12.0-16.0); Lymphocytes 11 % (21-51); MDiff Complete? YES; Mean Corpuscular HGB CONC 35.3 g/dL (32.0-36.0); Mean Corpuscular Hemoglobin 36.5 pg (27.0-31.0); Mean Platelet Volume 6.9 fL (7.4-10.4); Monocytes 6 % (0-10); Neutrophil 75 % (42-75); Platelet Count 207 thou/uL (130-400); RBC Distribution Width 13.7 % (11.5-14.5); Red Blood Cell (RBC) Count 2.94 mill/uL (4.20-5.40); White Blood Cell (WBC) Count 18.6 thou/uL (4.8-10.8)
[2017-07-28] MEDS: Levothyroxine Sodium 125 MCG TAB PO SCH (05:54)
[2017-07-28] MEDS ORDERED: Furosemide 40 MG/4 ML VIAL SLOW IVP SCH (06:00)
[2017-07-28] MEDS: Dextrose 5% in Water 1,000 ML IV SCH ×2 (09:23→11:47)
[2017-07-28] MEDS: Multivits W-Minerals Liquid 15mL UDCUP PO SCH (09:23)
[2017-07-28] MEDS: Aripiprazole 10 MG TAB PO SCH (09:24)
[2017-07-28] MEDS: Heparin 5,000 UNITS/ML VIAL SC SCH ×3 (09:24→22:31)
[2017-07-28] MEDS: Losartan 25 MG TAB PO SCH (09:24)
[2017-07-28] MEDS: Magnesium Oxide 400 MG TAB PO SCH (09:25)
[2017-07-28] MEDS: Folic Acid 1 MG TAB PO SCH (09:25)
[2017-07-28] MEDS: Venlafaxine HCl XR 150 MG CAP PO SCH (09:25)
[2017-07-28] MEDS: Pantoprazole 40 MG GRANULES PACKET PO SCH (09:26)
[2017-07-28] MEDS ORDERED: Furosemide 20 MG/2 ML VIAL SLOW IVP SCH (11:30)
[2017-07-28] MEDS ORDERED: Fluconazole 100 MG TAB PO SCH (11:30)
[2017-07-28] MEDS: Nystatin Powder 15 GM BOT TOP PRN (12:11)
[2017-07-28] MEDS: Labetalol HCl 100 MG/20 ML VIAL SLOW IVP PRN ×2 (12:27→13:00)
--- NOTE | 2017-07-28 13:06 | PDOC.PN ---
- Subjective Encounter Start Date: 07/28/17 Encounter Start Time: 07:20 Pt seen for followup re: acute respiratory failure. Intubated, nonverbal, unable to complete ROS. - Objective MAR Reviewed: Yes Vital Signs & Weight: Vital Signs (12 hours) Temp Pulse Resp BP Pulse Ox 07/28/17 13:00 122 H 07/28/17 12:27 122 H 07/28/17 12:00 25 H 07/28/17 11:00 97.5 F L 07/28/17 10:46 122 H 07/28/17 10:00 26 H 07/28/17 08:00 98.5 F 90 19 07/28/17 07:36 95 145/118 H 07/28/17 06:00 16 07/28/17 04:00 98.4 F 23 H 07/28/17 03:20 94 172/91 H 07/28/17 03:19 105 H 24 H 99 07/28/17 02:00 23 H Weight Admit Weight 163 lb 12.855 oz Weight 179 lb 3.773 oz Most Recent Monitor Data Heart Rate from ECG 109 NIBP 194/102 NIBP BP-Mean 127 Respiration from ECG 24 SpO2 91 I&O: 07/27/17 07/28/17 07/29/17 06:59 06:59 06:59 Intake Total 3598 3677.5 391 Output Total 2630 6125 4505 Balance 968 -2447.5 -4114 Result Diagrams: 07/28/17 03:49 07/28/17 03:49 Additional Labs: Accuchecks 07/28/17 07/28/17 07/27/17 08:09 03:50 21:43 POC Glucose 112 H 157 H 124 H 07/27/17 14:46 POC Glucose 194 H EKG Reviewed by me: Yes (Tele:sinus tachycardia) Phys Exam - Physical Examination Intubated HEENT: moist MMs ETT Respiratory: clear to auscultation bilateral S1, S2, tachy, reg Gastrointestinal: soft Neurological: moves all 4 limbs Deviation from normal: Unable to assess Skin: no rash Dx/Plan (1) Acute respiratory failure Code(s): J96.00 - ACUTE RESPIRATORY FAILURE, UNSP W HYPOXIA OR HYPERCAPNIA Status: Acute Qualifiers: Respiratory failure complication: hypoxia Qualified Code(s): J96.01 - Acute respiratory failure with hypoxia Comment: Intubated, failing CPAP trials (2) Aspiration pneumonia Code(s): J69.0 - PNEUMONITIS DUE TO INHALATION OF FOOD AND VOMIT Status: Acute Comment: continue IV antibiotics as below (3) Alcohol withdrawal Code(s): F10.239 - ALCOHOL DEPENDENCE WITH WITHDRAWAL, UNSPECIFIED Status: Acute Comment: continue ASE protocol (4) UTI (urinary tract infection) Status: Acute Comment: continue IV antibiotics as below - Plan * . Review of Systems - Medications/Allergies Allergies/Adverse Reactions: Allergies Allergy/AdvReac Type Severity Reaction Status Date / Time Penicillins Allergy Verified 11/27/13 11:08 Medications: Current Medications Acetaminophen (Tylenol) 650 mg PO Q4H PRN PRN Reason: Headache/Fever or Pain Acetaminophen (Tylenol) 650 mg RI Q4H PRN PRN Reason: Headache/Fever or Pain Albuterol/Ipratropium (Duoneb) 3 ml NEB Q2FR-MW [facility] Last Admin: 07/28/17 10:44 Dose: 3 ml Aripiprazole (Abilify) 5 mg PO DAILY [facility] Last Admin: 07/28/17 09:24 Dose: 5 mg Bisacodyl (Dulcolax) 10 mg PO DAILYPRN PRN PRN Reason: Constipation Dextrose/Water (Dextrose 50%) 25 gm SLOW IVP PRN PRN PRN Reason: Hypoglycemia Fluconazole (Diflucan) 100 mg PO DAILY [facility] Stop: 08/02/17 09:01 Fluconazole (Diflucan) 200 mg PO 1130 [facility] Stop: 07/28/17 13:30 Last Admin: 07/28/17 12:10 Dose: 200 mg Folic Acid (Folvite) 1 mg PO DAILY [facility] Last Admin: 07/28/17 09:25 Dose: 1 mg Furosemide (Lasix) 20 mg SLOW IVP 0600 [facility] Stop: 07/30/17 06:01 Glucagon (Glucagon) 1 mg IM PRN PRN PRN Reason: Hypoglycemia Heparin Sodium (Porcine) (Heparin) 5,000 units SC TID [facility] Last Admin: 07/28/17 09:24 Dose: 5,000 units Dextrose/Water (D5w) 1,000 mls @ 0 mls/hr IV .Q0M PRN; As Directed PRN Reason: Hypoglycemia Clindamycin Phosphate/Dextrose (600 mg/ Device) 50 mls @ 100 mls/hr IVPB 0200, 1000,1800 [facility] Last Admin: 07/28/17 09:23 Dose: 50 mls Levofloxacin 250 mg/ Device 50 mls @ 100 mls/hr IVPB 1400 [facility] Last Admin: 07/27/17 14:48 Dose: 50 mls Fentanyl Citrate 2,000 mcg/ (Sodium Chloride) 100 mls @ 0 mls/hr IV INF [facility]; Per Protocol PRN Reason: Protocol Stop: 08/22/17 07:50 Fentanyl Citrate (Fentanyl Bolus) 250 mls @ 0 mls/hr IVPB PRN PRN; As Directed PRN Reason: Breakthrough pain/agitation Stop: 08/22/17 07:50 Potassium Chloride 40 meq/ (Sodium Chloride) 270 mls @ 135 mls/hr IVPB ASDIR PRN PRN Reason: FOR SERUM K+ 2.5 - 3.5 Potassium Chloride 40 meq/ (Device) 100 mls @ 50 mls/hr IVPB ASDIR PRN PRN Reason: FOR SERUM K+ 2.5 - 3.5 Magnesium Sulfate 1 gm/ Sodium (Chloride) 102 mls @ 102 mls/hr IV PRN PRN PRN Reason: MAG LEVEL 1.4 - 2.0 Magnesium Sulfate 2 gm/ Device 100 mls @ 100 mls/hr IVPB ASDIR PRN PRN Reason: MAGNESIUM < 1.4 Potassium Phosphate 9 mmol/ (Sodium Chloride) 103 mls @ 25.75 mls/hr IVPB ASDIR PRN PRN Reason: Phosphate 1.0-1.8 Potassium Phosphate 12 mmol/ (Sodium Chloride) 254 mls @ 63.5 mls/hr IV ASDIR PRN PRN Reason: Serum phosphate 0.5-0.9 Potassium Phosphate 15 mmol/ (Sodium Chloride) 255 mls @ 63.75 mls/hr IV ASDIR PRN PRN Reason: Serum Phos < 0.5 Dexmedetomidine HCl 200 mcg/ (Sodium Chloride) 50 mls @ 0 mls/hr IVPB INF [facility]; Per Protocol PRN Reason: Protocol Last Admin: 07/28/17 12:29 Dose: 50 mls Dextrose/Water (D5w) 1,000 mls @ 50 mls/hr IV .Q20H [facility] Last Admin: 07/28/17 11:47 Dose: Not Given Insulin Human Lispro (Humalog) 0 units SC .MILD SLIDING SCALE PRN PRN Reason: Mild Correctional Scale Last Admin: 07/28/17 04:33 Dose: 2 unit Iron/Minerals/Multivitamins (Certa Lisa Liquid) 15 ml PO DAILY [facility] Last Admin: 07/28/17 09:23 Dose: 15 ml Labetalol HCl (Normodyne) 20 mg SLOW IVP Q15MIN PRN PRN Reason: SBP>180 Last Admin: 07/28/17 13:00 Dose: 20 mg Levothyroxine Sodium (Synthroid) 125 mcg PO 0600 [facility] Last Admin: 07/28/17 05:54 Dose: 125 mcg Lorazepam (Ativan) 2 mg SLOW IVP Q1H PRN PRN Reason: Breakthrough agitation Stop: 08/22/17 07:50 Last Admin: 07/26/17 14:28 Dose: 2 mg Losartan Potassium (Cozaar) 100 mg PO DAILY [facility] Last Admin: 07/28/17 09:24 Dose: 100 mg Magnesium Oxide (Magnesium Oxide) 400 mg PO DAILY [facility] Last Admin: 07/28/17 09:25 Dose: 400 mg Magnesium Oxide (Magnesium Oxide) 400 mg PO BIDPRN PRN PRN Reason: FOR SERUM MAG 1.4 - 2.0 Magnesium Oxide (Magnesium Oxide) 800 mg PO PRN PRN PRN Reason: FOR SERUM MAG < 1.4 Methylprednisolone Sodium Succinate (Solu-Medrol) 20 mg IVP BID [facility] Last Admin: 07/28/17 09:25 Dose: 20 mg Miscellaneous Medication (Ventilator Sedation Protocol) 1 each FS ONE [facility] Stop: 08/07/17 07:47 Miscellaneous Medication (Ccu Electrolyte Replacement) 1 each FS ONE [facility] Stop: 08/06/17 07:55 Miscellaneous Medication (Phos-Nak) 1 pkt PO TIDPRN PRN PRN Reason: FOR PHOS LEVEL 1.0 - 1.8 Miscellaneous Medication (Phos-Nak) 2 pkt PO TIDPRN PRN PRN Reason: FOR PHOS LEVEL 0.5 - 1.0 Nystatin (Mycostatin Powder) 1 gm TOP BID PRN PRN Reason: Topical Irritations Last Admin: 07/28/17 12:11 Dose: 1 applic Pantoprazole Sodium (Protonix) 40 mg PO DAILY [facility] Last Admin: 07/28/17 09:26 Dose: 40 mg Potassium Chloride (K-Dur) 40 meq PO ASDIR PRN PRN Reason: FOR SERUM K+ 2.5 - 3.5 Potassium Chloride (Klor-Con) 40 meq PER TUBE ASDIR PRN PRN Reason: FOR SERUM K+ 2.5-3.5 Last Admin: 07/28/17 05:54 Dose: 40 meq Potassium Chloride (Klor-Con) 40 meq PO 1130 [facility] Stop: 07/28/17 13:30 Last Admin: 07/28/17 12:10 Dose: 40 meq Propofol (Diprivan) 1,000 mg IV INF PRN; Protocol PRN Reason: TO ACHIEVE GOAL RASS Stop: 08/22/17 07:50 Last Admin: 07/28/17 05:00 Dose: 1,000 mg Propofol (Diprivan Bolus) 20 mg IV Q5MIN PRN PRN Reason: BREAKTHROUGH AGITATION Stop: 08/22/17 07:50 Sodium Chloride (Flush - Normal Saline) 10 ml IVF Q12HR [facility] Last Admin: 07/28/17 09:24 Dose: 10 ml Sodium Chloride (Flush - Normal Saline) 10 ml IVF PRN PRN PRN Reason: Saline Flush Last Admin: 07/28/17 09:24 Dose: 10 ml Thiamine HCl (Thiamine) 100 mg PO DAILY [facility] Last Admin: 07/28/17 09:25 Dose: 100 mg Venlafaxine HCl (Effexor Xr) 150 mg PO DAILY [facility] Last Admin: 07/28/17 09:25 Dose: 150 mg
[2017-07-29] MEDS: Clindamycin/D5W 600 MG in Premix Bag 1 BAG IVPB SCH ×3 (03:38→17:03)
[2017-07-29] MEDS: Dextrose 5% in Water 1,000 ML IV SCH (03:47)
[2017-07-29] MEDS: HumaLOG 300 UNITS/3 ML VIAL SC PRN ×2 (04:00→21:02)
[2017-07-29 04:56] LABS: Band 6 % (5-11); Hemoglobin 12.5 g/dL (12.0-16.0); Lymphocytes 8 % (21-51); MDiff Complete? YES; Mean Corpuscular HGB CONC 34.7 g/dL (32.0-36.0); Mean Corpuscular Hemoglobin 35.7 pg (27.0-31.0); Monocytes 4 % (0-10); Myelocyte 2 % (0-0); Neutrophil 80 % (42-75); Platelet Count 239 thou/uL (130-400); RBC Distribution Width 13.9 % (11.5-14.5); White Blood Cell (WBC) Count 29.5 thou/uL (4.8-10.8)
[2017-07-29 05:09] LABS: Anion Gap 14 mmol/L (10-20); BUN (Urea Nitrogen) 28 mg/dL (9.8-20.1); Calc. Creatinine Clearance 79 mL/min (70-130); Calcium 9.6 mg/dL (7.8-10.44); Carbon Dioxide 29 mmol/L (23-31); Chloride 98 mmol/L (98-107); Estimated GFR-MDRD 65; Glucose 183 mg/dL (80-115); Magnesium 1.8 mg/dL (1.6-2.6); Phosphorus 3.7 mg/dL (2.3-4.7); Potassium 3.3 mmol/L (3.5-5.1); Sodium 138 mmol/L (136-145)
[2017-07-29] MEDS: Levothyroxine Sodium 125 MCG TAB PO SCH (05:57)
[2017-07-29] MEDS: Furosemide 20 MG/2 ML VIAL SLOW IVP SCH (05:57)
--- NOTE | 2017-07-29 08:15 | PRG ---
DATE OF SERVICE: 07/29/2017 Thirty-five minutes critical care time. The patient remains intubated on mechanical ventilation. She is only receiving Precedex for sedation at this time. Her last dose of Ativan was on Saturday and she has been off propofol for over 24 hours . PHYSICAL EXAMINATION: VITAL SIGNS: T-max of 99.5, pulse 100, blood pressure 159/90, 24 hour intake 3331, output 8725. Cesar ght 164 pounds. NEUROLOGIC: Although she will move around, she will not follow any commands specifically. HEENT: Otherwise, unremarkable. NECK: No JVD. LUNGS: Coarse breath sounds. CARDIOVASCULAR: S1, S2, slightly tachycardic. ABDOMEN: Soft, nontender. EXTREMITIES: Slight edema throughout. LABORATORY DATA: White blood cell count 29.5, up from 18.6, hematocrit 36.0, platelet count 239. So dium 138, potassium 3.3, chloride 92, CO2 29, BUN 20, creatinine 0.6, glucose 183. ASSESSMENT: 1. Alcohol withdrawal. 2. Aspiration pneumonia. 3. Acute respiratory failure requiring mechanical ventilation. 4. Encephalopathy. PLAN: 1. Very difficult to wean in her current mental status. She is on very minimal support, but I do no t have any confidence that she keep her airway clear at this time. 2. Given the elevated white blood cell count, will go ahead and reculture her. She should be finish ed with 7 days of Levaquin and clindamycin by the end of the day today. We need to stop the antibiot ics tomorrow. 3. Update family when they are available.
[2017-07-29] MEDS: Aripiprazole 10 MG TAB PO SCH (08:57)
[2017-07-29] MEDS: Magnesium Oxide 400 MG TAB PO SCH (08:58)
[2017-07-29] MEDS: Losartan 25 MG TAB PO SCH (08:58)
[2017-07-29] MEDS: Venlafaxine HCl XR 150 MG CAP PO SCH (08:59)
[2017-07-29] MEDS: Fluconazole 100 MG TAB PO SCH (08:59)
[2017-07-29] MEDS: Pantoprazole 40 MG GRANULES PACKET PO SCH (08:59)
[2017-07-29] MEDS: Folic Acid 1 MG TAB PO SCH (08:59)
[2017-07-29] MEDS: Heparin 5,000 UNITS/ML VIAL SC SCH ×3 (09:00→21:01)
[2017-07-29] MEDS: Multivits W-Minerals Liquid 15mL UDCUP PO SCH (09:00)
--- NOTE | 2017-07-29 09:13 | RAD ---
AP VIEW OF THE CHEST: INDICATION: Elevated white blood cell count. COMPARISON: Prior dated 07/27/17. FINDINGS: Since the comparison examination, there has been worsening left-sided pleural parenchymal opacity whi ch may be related to pneumonia or worsening left peripneumonic effusion. The patient remains intubat ed. Multiple cardiac leads overlying the chest wall. Heart size is upper limits of normal. The pul monary vasculature appears slightly prominent. Right lung is clear. Osseous structures are unchange d. IMPRESSION: 1. Worsening left-sided basilar pleural parenchymal opacity may reflect worsening pleural effusion w ith worsening left lower lobe pneumonia. CT examination may be helpful for further characterize. 2. Mild pulmonary vascular congestion may reflect changes of volume overload or mild congestive hear t failure. 3. Endotracheal tube tip is unchanged from the comparison dated 07/27/17. POS: [facility]
[2017-07-29] MEDS: Acetaminophen 325 MG TAB PO PRN (09:28)
[2017-07-29] MEDS: Lorazepam 2 MG/ML VIAL SLOW IVP PRN ×3 (09:28→15:49)
[2017-07-29 12:11] LABS: Amphetamine Not Detected (NotDetected); Barbiturates Screen Not Detected (NotDetected); Benzodiazepine Screen Detected (NotDetected); Cocaine Metabolite Screen Not Detected (NotDetected); Medtox Control Line Valid? VALID (VALID); Medtox Reader # READER 1; Methadone Not Detected (NotDetected); Methamphetamine Not Detected (NotDetected); Opiate Screen Not Detected (NotDetected); Oxycodone Screen Not Detected (NotDetected); Phencyclidine (PCP) Not Detected (NotDetected); THC/Cannabinoid Screen Not Detected (NotDetected); Tricyclic Screen Not Detected (NotDetected)
[2017-07-29] MEDS: Nystatin Powder 15 GM BOT TOP PRN (13:49)
--- NOTE | 2017-07-29 15:52 | PDOC.PN ---
- Subjective Encounter Start Date: 07/29/17 Encounter Start Time: 09:00 Pt seen for followup re: acute respiratory failure. Intubated, unable to complete review of systems. - Objective MAR Reviewed: Yes Vital Signs & Weight: Vital Signs (12 hours) Temp Pulse Resp BP Pulse Ox 07/29/17 14:27 88 150/98 H 07/29/17 13:51 24 H 07/29/17 12:00 18 07/29/17 11:53 99.3 F 07/29/17 10:32 89 106/62 07/29/17 09:56 100.3 F H 23 H 07/29/17 07:51 21 H 07/29/17 07:33 99.5 F 106 H 21 H 99 07/29/17 07:03 96 159/90 H 07/29/17 07:00 99.5 F 07/29/17 06:00 24 H 07/29/17 05:00 98.7 F 07/29/17 04:00 22 H Weight Admit Weight 163 lb 12.855 oz Weight 164 lb 0.383 oz Most Recent Monitor Data Heart Rate from ECG 89 NIBP 103/59 NIBP BP-Mean 66 Respiration from ECG 15 SpO2 100 I&O: 07/28/17 07/29/17 07/30/17 06:59 06:59 06:59 Intake Total 3677.5 3331 370 Output Total 6125 8725 1550 [employer]24[facility].5 -5394 -1180 Result Diagrams: 07/29/17 04:00 07/29/17 04:00 Additional Labs: Accuchecks 07/29/17 07/29/17 07/28/17 10:06 04:00 22:30 POC Glucose 149 H 180 H 155 H Labs reviewed by me. EKG Reviewed by me: Yes (Tele: sinus tach) Phys Exam - Physical Examination Intubated, occ. agitation ETT Neck: no nodes Respiratory: clear to auscultation bilateral S1, S2, reg, tachy Gastrointestinal: soft Neurological: moves all 4 limbs Deviation from normal: Unable to assess Dx/Plan (1) Acute respiratory failure Code(s): J96.00 - ACUTE RESPIRATORY FAILURE, UNSP W HYPOXIA OR HYPERCAPNIA Status: Acute Qualifiers: Respiratory failure complication: hypoxia Qualified Code(s): J96.01 - Acute respiratory failure with hypoxia Comment: Continues to be intubated, failing CPAP trials (2) Aspiration pneumonia Code(s): J69.0 - PNEUMONITIS DUE TO INHALATION OF FOOD AND VOMIT Status: Acute Comment: continue IV antibiotics (3) Alcohol withdrawal Code(s): F10.239 - ALCOHOL DEPENDENCE WITH WITHDRAWAL, UNSPECIFIED Status: Acute Comment: continue ASE protocol (4) UTI (urinary tract infection) Status: Acute Comment: E. coli UTI, continue IV antibiotics as below - Plan * . Review of Systems - Medications/Allergies Allergies/Adverse Reactions: Allergies Allergy/AdvReac Type Severity Reaction Status Date / Time Penicillins Allergy Verified 11/27/13 11:08 Medications: Current Medications Acetaminophen (Tylenol) 650 mg PO Q4H PRN PRN Reason: Headache/Fever or Pain Last Admin: 07/29/17 09:28 Dose: 650 mg Acetaminophen (Tylenol) 650 mg ME Q4H PRN PRN Reason: Headache/Fever or Pain Albuterol/Ipratropium (Duoneb) 3 ml NEB [id number] [facility] Last Admin: 07/29/17 14:26 Dose: 3 ml Aripiprazole (Abilify) 5 mg PO DAILY [facility] Last Admin: 07/29/17 08:57 Dose: 5 mg Bisacodyl (Dulcolax) 10 mg PO DAILYPRN PRN PRN Reason: Constipation Dextrose/Water (Dextrose 50%) 25 gm SLOW IVP PRN PRN PRN Reason: Hypoglycemia Fluconazole (Diflucan) 100 mg PO DAILY [facility] Stop: 08/02/17 09:01 Last Admin: 07/29/17 08:59 Dose: 100 mg Folic Acid (Folvite) 1 mg PO DAILY [facility] Last Admin: 07/29/17 08:59 Dose: 1 mg Furosemide (Lasix) 20 mg SLOW IVP 0600 [facility] Stop: 07/30/17 06:01 Last Admin: 07/29/17 05:57 Dose: 20 mg Glucagon (Glucagon) 1 mg IM PRN PRN PRN Reason: Hypoglycemia Heparin Sodium (Porcine) (Heparin) 5,000 units SC TID [facility] Last Admin: 07/29/17 14:31 Dose: 5,000 units Dextrose/Water (D5w) 1,000 mls @ 0 mls/hr IV .Q0M PRN; As Directed PRN Reason: Hypoglycemia Clindamycin Phosphate/Dextrose (600 mg/ Device) 50 mls @ 100 mls/hr IVPB 0200, 1000,1800 [facility] Last Admin: 07/29/17 09:33 Dose: 50 mls Levofloxacin 250 mg/ Device 50 mls @ 100 mls/hr IVPB 1400 [facility] Last Admin: 07/29/17 13:11 Dose: 50 mls Potassium Chloride 40 meq/ (Sodium Chloride) 270 mls @ 135 mls/hr IVPB ASDIR PRN PRN Reason: FOR SERUM K+ 2.5 - 3.5 Potassium Chloride 40 meq/ (Device) 100 mls @ 50 mls/hr IVPB ASDIR PRN PRN Reason: FOR SERUM K+ 2.5 - 3.5 Magnesium Sulfate 1 gm/ Sodium (Chloride) 102 mls @ 102 mls/hr IV PRN PRN PRN Reason: MAG LEVEL 1.4 - 2.0 Magnesium Sulfate 2 gm/ Device 100 mls @ 100 mls/hr IVPB ASDIR PRN PRN Reason: MAGNESIUM < 1.4 Potassium Phosphate 9 mmol/ (Sodium Chloride) 103 mls @ 25.75 mls/hr IVPB ASDIR PRN PRN Reason: Phosphate 1.0-1.8 Potassium Phosphate 12 mmol/ (Sodium Chloride) 254 mls @ 63.5 mls/hr IV ASDIR PRN PRN Reason: Serum phosphate 0.5-0.9 Potassium Phosphate 15 mmol/ (Sodium Chloride) 255 mls @ 63.75 mls/hr IV ASDIR PRN PRN Reason: Serum Phos < 0.5 Dexmedetomidine HCl 200 mcg/ (Sodium Chloride) 50 mls @ 0 mls/hr IVPB INF [facility]; Per Protocol PRN Reason: Protocol Last Admin: 07/29/17 15:35 Dose: 50 mls Dextrose/Water (D5w) 1,000 mls @ 50 mls/hr IV .Q20H [facility] Last Admin: 07/29/17 03:47 Dose: 1,000 mls Insulin Human Lispro (Humalog) 0 units SC .MILD SLIDING SCALE PRN PRN Reason: Mild Correctional Scale Last Admin: 07/29/17 04:00 Dose: 2 unit Iron/Minerals/Multivitamins (Certa Lisa Liquid) 15 ml PO DAILY [facility] Last Admin: 07/29/17 09:00 Dose: 15 ml Labetalol HCl (Normodyne) 20 mg SLOW IVP Q15MIN PRN PRN Reason: SBP>180 Last Admin: 07/28/17 13:00 Dose: 20 mg Levothyroxine Sodium (Synthroid) 125 mcg PO 0600 [facility] Last Admin: 07/29/17 05:57 Dose: 125 mcg Lorazepam (Ativan) 2 mg SLOW IVP Q1H PRN PRN Reason: Breakthrough agitation Stop: 08/22/17 07:50 Last Admin: 07/29/17 15:49 Dose: 2 mg Losartan Potassium (Cozaar) 100 mg PO DAILY [facility] Last Admin: 07/29/17 08:58 Dose: 100 mg Magnesium Oxide (Magnesium Oxide) 400 mg PO DAILY [facility] Last Admin: 07/29/17 08:58 Dose: 400 mg Magnesium Oxide (Magnesium Oxide) 400 mg PO BIDPRN PRN PRN Reason: FOR SERUM MAG 1.4 - 2.0 Last Admin: 07/29/17 10:54 Dose: 400 mg Magnesium Oxide (Magnesium Oxide) 800 mg PO PRN PRN PRN Reason: FOR SERUM MAG < 1.4 Methylprednisolone Sodium Succinate (Solu-Medrol) 20 mg IVP BID [facility] Last Admin: 07/29/17 09:01 Dose: 20 mg Miscellaneous Medication (Ventilator Sedation Protocol) 1 each FS ONE [facility] Stop: 08/07/17 07:47 Miscellaneous Medication (Ccu Electrolyte Replacement) 1 each FS ONE [facility] Stop: 08/06/17 07:55 Miscellaneous Medication (Phos-Nak) 1 pkt PO TIDPRN PRN PRN Reason: FOR PHOS LEVEL 1.0 - 1.8 Miscellaneous Medication (Phos-Nak) 2 pkt PO TIDPRN PRN PRN Reason: FOR PHOS LEVEL 0.5 - 1.0 Nystatin (Mycostatin Powder) 1 gm TOP BID PRN PRN Reason: Topical Irritations Last Admin: 07/29/17 13:49 Dose: 1 applic Pantoprazole Sodium (Protonix) 40 mg PO DAILY [facility] Last Admin: 07/29/17 08:59 Dose: 40 mg Potassium Chloride (K-Dur) 40 meq PO ASDIR PRN PRN Reason: FOR SERUM K+ 2.5 - 3.5 Potassium Chloride (Klor-Con) 40 meq PER TUBE ASDIR PRN PRN Reason: FOR SERUM K+ 2.5-3.5 Last Admin: 07/29/17 05:57 Dose: 40 meq Sodium Chloride (Flush - Normal Saline) 10 ml IVF Q12HR [facility] Last Admin: 07/29/17 09:02 Dose: 10 ml Sodium Chloride (Flush - Normal Saline) 10 ml IVF PRN PRN PRN Reason: Saline Flush Last Admin: 07/28/17 09:24 Dose: 10 ml Thiamine HCl (Thiamine) 100 mg PO DAILY [facility] Last Admin: 07/29/17 08:57 Dose: 100 mg Venlafaxine HCl (Effexor Xr) 150 mg PO DAILY [facility] Last Admin: 07/29/17 08:59 Dose: 150 mg
[2017-07-29] MEDS: Dexmedetomidine 1,000 MCG in Sodium Chloride 0.9% 250 ML 240 ML IVPB SCH (16:56)
--- NOTE | 2017-07-29 21:12 | PRG ---
DATE OF SERVICE: 07/28/2017 SERVICE: Pulmonary Medicine. INTERVAL HISTORY: The patient is doing fine from a respiratory standpoint. She denies any chest pain, nausea or vomiting. She is breathing comfortably. She is having lot of bowel movements were causing excoriation of the intertriginous regions. Otherwise, there has been no interval change to her condition. Whenever we interrupt her propofol, she becomes a little bit excitable. We did start some Precedex up and this actually has allowed us to use less propofol. We have been weaning oxygen away. She seems to be tolerating this just fine. OBJECTIVE: VITAL SIGNS: Afebrile, pulse 116, blood pressure 195/108, respirations 26, saturation 93% on 31% FiO2. GENERAL: Patient is awake, alert, in no apparent distress. LUNGS: Decent air entry with no prolonged expiratory phase, wheezing, rhonchi, or crackles. HEART: Normal rate and regular. ABDOMEN: Soft, nontender, nondistended. Bowel sounds are positive. MUSCULOSKELETAL: No cyanosis or clubbing. No pitting edema is nearly resolved. GENITOURINARY: Li catheter in place. NEUROLOGIC: Grossly nonfocal. LABORATORY DATA: WBC 18.6, hemoglobin 10.7, platelets 207,000. Neutrophil count is 75% with an 8% band count and improving. Creatinine 0.89 and continuing to trend downward, BUN 36. Sodium 142 and stable, potassium 3.3 and dropping. Urinalysis is positive for white blood cells. Toxicology screen was otherwise unremarkable. E. coli is growing in the urine. This is really a pansensitive organism. IMAGING: Chest x-ray demonstrates mild improvement in the bilateral airspace opacifications. Endotracheal tube remains 2-3 cm above the level of the laith , directing towards the right mainstem. There is an enteric catheter coursing below the level of the diaphragm in the midline. Cardiac silhouette remains generous. ASSESSMENT: 1. Acute hypoxic respiratory failure. 2. Delirium tremens. 3. Metabolic encephalopathy, severe. 4. Chronic obstructive pulmonary disease with acute exacerbation. PLAN: We will continue the Precedex. Wean the propofol as tolerated. If she wakes up and attends and follow some simple commands, extubation will be considered. She is currently on pressure support ventilation at 5/5. We will continue the free water for an additional 24 hours, but back off on her rate. CRITICAL CARE TIME: 30 minutes. MTDD
[2017-07-30] MEDS: Lorazepam 2 MG/ML VIAL SLOW IVP PRN (01:34)
[2017-07-30] MEDS: Clindamycin/D5W 600 MG in Premix Bag 1 BAG IVPB SCH ×3 (02:04→18:25)
[2017-07-30] MEDS: Dextrose 5% in Water 1,000 ML IV SCH ×2 (03:09→21:09)
[2017-07-30] MEDS: Acetaminophen 325 MG TAB PO PRN (03:10)
[2017-07-30 04:11] LABS: Anion Gap 15 mmol/L (10-20); BUN (Urea Nitrogen) 36 mg/dL (9.8-20.1); Calc. Creatinine Clearance 76 mL/min (70-130); Calcium 9.7 mg/dL (7.8-10.44); Carbon Dioxide 30 mmol/L (23-31); Chloride 98 mmol/L (98-107); Estimated GFR-MDRD 69; Glucose 172 mg/dL (80-115); Magnesium 2.1 mg/dL (1.6-2.6); Potassium 3.5 mmol/L (3.5-5.1); Sodium 139 mmol/L (136-145)
[2017-07-30 04:31] LABS: Band 10 % (5-11); Hemoglobin 11.7 g/dL (12.0-16.0); Lymphocytes 5 % (21-51); MDiff Complete? YES; Macrocytosis SLIGHT = 6-15 cells (100X) (0-5/hpf); Mean Corpuscular HGB CONC 35.1 g/dL (32.0-36.0); Mean Corpuscular Hemoglobin 36.8 pg (27.0-31.0); Monocytes 4 % (0-10); Neutrophil 81 % (42-75); Platelet Count 187 thou/uL (130-400); RBC Distribution Width 13.6 % (11.5-14.5); Red Blood Cell (RBC) Count 3.17 mill/uL (4.20-5.40); White Blood Cell (WBC) Count 24.9 thou/uL (4.8-10.8)
[2017-07-30] MEDS: Levothyroxine Sodium 125 MCG TAB PO SCH (05:34)
[2017-07-30] MEDS: Furosemide 20 MG/2 ML VIAL SLOW IVP SCH (05:34)
[2017-07-30] MEDS: Dexmedetomidine 1,000 MCG in Sodium Chloride 0.9% 250 ML 240 ML IVPB SCH (05:38)
--- NOTE | 2017-07-30 08:08 | PRG ---
DATE OF SERVICE: 07/30/2017 Thirty minutes of critical care time. The patient is intermittently following commands according to nursing staff, but she does not follow up for me this morning. PHYSICAL EXAMINATION: VITAL SIGNS: Temperature 98.4, pulse 60, blood pressure 127/62. 24 hour intake 2802, output 2980, w eight 162 pounds. HEENT: Unremarkable. NECK: No JVD. LUNGS: Clear without wheezing or rhonchi. CARDIAC: S1 and S2 regular. ABDOMEN: Soft. EXTREMITIES: No edema. LABORATORY DATA: Sodium 139, potassium 3.5, chloride 98, CO2 30, BUN 36, creatinine 0.8, glucose 172 . White blood cell count 24.9, hematocrit 33.3, platelet count 187. Cultures show only E. coli on t he initial urine culture many days ago. ASSESSMENT: 1. Acute respiratory failure requiring mechanical ventilation. 2. Aspiration pneumonia. 3. Alcohol withdrawal. 4. Encephalopathy. PLAN: 1. I plan to extubate if I can get her more awake this morning. 2. I discussed with the patient's son in detail yesterday concerning the patient's condition and guillermo atment course. 3. Continue current antibiotics, adjusting based on culture results. 4. Decrease steroids.
[2017-07-30] MEDS: Pantoprazole 40 MG GRANULES PACKET PO SCH (08:26)
[2017-07-30] MEDS: Losartan 25 MG TAB PO SCH (08:26)
[2017-07-30] MEDS: Fluconazole 100 MG TAB PO SCH (08:27)
[2017-07-30] MEDS: Aripiprazole 10 MG TAB PO SCH ×2 (08:27→08:28)
[2017-07-30] MEDS: Multivits W-Minerals Liquid 15mL UDCUP PO SCH (08:27)
[2017-07-30] MEDS: Folic Acid 1 MG TAB PO SCH (08:27)
[2017-07-30] MEDS: Magnesium Oxide 400 MG TAB PO SCH (08:27)
[2017-07-30] MEDS: Venlafaxine HCl XR 150 MG CAP PO SCH (08:28)
[2017-07-30] MEDS: Heparin 5,000 UNITS/ML VIAL SC SCH ×3 (08:28→21:09)
[2017-07-30] MEDS: Vancomycin HCl 1 GM in Premix Bag 1 BAG IVPB SCH (14:58)
[2017-07-30] MEDS: HumaLOG 300 UNITS/3 ML VIAL SC PRN (15:54)
[2017-07-30] MEDS: Nystatin Powder 15 GM BOT TOP PRN (16:29)
[2017-07-31] MEDS: Vancomycin HCl 1 GM in Premix Bag 1 BAG IVPB SCH ×2 (02:05→15:44)
[2017-07-31] MEDS: Clindamycin/D5W 600 MG in Premix Bag 1 BAG IVPB SCH (02:06)
[2017-07-31] MEDS: Levothyroxine Sodium 125 MCG TAB PO SCH (05:11)
[2017-07-31] MEDS: Nystatin Powder 15 GM BOT TOP PRN (05:16)
[2017-07-31 05:37] LABS: Anion Gap 14 mmol/L (10-20); BUN (Urea Nitrogen) 28 mg/dL (9.8-20.1); Calc. Creatinine Clearance 81 mL/min (70-130); Calcium 9.5 mg/dL (7.8-10.44); Carbon Dioxide 29 mmol/L (23-31); Chloride 98 mmol/L (98-107); Estimated GFR-MDRD 75; Glucose 124 mg/dL (80-115); Sodium 138 mmol/L (136-145)
[2017-07-31 05:44] LABS: Potassium 2.8 mmol/L (3.5-5.1)
[2017-07-31 05:56] LABS: Band 4 % (5-11); Eosinophils 1 % (0-10); Hemoglobin 11.4 g/dL (12.0-16.0); Lymphocytes 5 % (21-51); MDiff Complete? YES; Mean Corpuscular HGB CONC 34.2 g/dL (32.0-36.0); Mean Corpuscular Hemoglobin 36.2 pg (27.0-31.0); Mean Platelet Volume 7.4 fL (7.4-10.4); Monocytes 10 % (0-10); Neutrophil 80 % (42-75); Platelet Count 197 thou/uL (130-400); RBC Distribution Width 13.9 % (11.5-14.5); Red Blood Cell (RBC) Count 3.16 mill/uL (4.20-5.40); White Blood Cell (WBC) Count 20.2 thou/uL (4.8-10.8)
--- NOTE | 2017-07-31 07:41 | PDOC.PULPN ---
Progress Note: Subj/Obj - Subjective Date: 07/31/17 Time: 07:39 Narrative: More awake. Can speak more clearly. Still confused - Objective Allergies/Adverse Reactions: Allergies Allergy/AdvReac Type Severity Reaction Status Date / Time Penicillins Allergy Verified 11/27/13 11:08 MAR Reviewed: Yes Vital Signs: Vital Signs Temp 98.2 F 07/31/17 03:00 Pulse 82 07/31/17 07:23 Resp 16 07/31/17 07:23 BP 127/62 07/30/17 07:04 Pulse Ox 98 07/31/17 07:23 Intake & Output 07/30/17 07/31/17 07/31/17 18:59 06:59 18:59 Intake Total 1450 1243 Output Total 1625 1600 Balance -175 -357 Weight 162 lb 0.636 oz 163 lb 9.328 oz Intake: Intake, IV Amount 859 730 Clindamycin/D5W 600 mg In 50 Premix Bag 1 bag @ 100 mls/hr IVPB 0200,1000, 1800 [facility] Rx#:[id number] Dextrose 5% in Water 1, 559 730 000 ml @ 50 mls/hr IV . Q20H [facility] Rx#:[id number] Levofloxacin 250 mg/D5W 50 250 mg In Premix Bag 1 bag @ 100 mls/hr IVPB 1400 [facility] Rx#:[id number] Vancomycin HCl 1 gm In 200 Premix Bag 1 bag @ 200 mls/hr IVPB 0300,1500 [facility] Rx#:[id number] Oral Supplement 30 Tube Feeding 251 363 Tube Irrigant 310 150 Output: Output, Li 1625 1600 Other: Voiding Method Indwelling Catheter Indwelling Catheter # Bowel Movements 1 1 Progress Note: Exam - Physical Exam Constitutional: NAD HEENT: PERRLA Neck: no nodes, no JVD Cardiovascular: RRR Respiratory: clear to auscultation anteriorly Gastrointestinal: soft, non-tender Musculoskeletal: no edema Neurological: non-focal Skin: no rash Progress Note: Data - Labs Result Diagrams: 07/31/17 04:25 07/31/17 04:25 Progress Note: A/P - Problems (1) Acute respiratory failure Current Visit: Yes Status: Acute Code(s): J96.00 - ACUTE RESPIRATORY FAILURE , UNSP W HYPOXIA OR HYPERCAPNIA Qualifiers: Respiratory failure complication: hypoxia Qualified Code(s): J96.01 - Acute respiratory failure with hypoxia (2) Alcohol withdrawal Current Visit: Yes Status: Acute Code(s): F10.239 - ALCOHOL DEPENDENCE WITH WITHDRAWAL, UNSPECIFIED (3) Aspiration pneumonia Current Visit: Yes Status: Acute Code(s): J69.0 - PNEUMONITIS DUE TO INHALATION OF FOOD AND VOMIT (4) UTI (urinary tract infection) Current Visit: Yes Status: Acute - Plan Plan: Speech eval PT eval dc steroids continue Vanc for MARTHA on blood cx. Not sure if this explains her high WBC replace K OK to move to [facility]
[2017-07-31 10:11] LABS: Potassium 3.4 mmol/L (3.5-5.1)
[2017-07-31] MEDS: Heparin 5,000 UNITS/ML VIAL SC SCH ×3 (10:18→20:25)
[2017-07-31] MEDS: Pantoprazole 40 MG GRANULES PACKET PO SCH (10:19)
[2017-07-31] MEDS: Magnesium Oxide 400 MG TAB PO SCH (10:19)
[2017-07-31] MEDS: Folic Acid 1 MG TAB PO SCH (10:19)
[2017-07-31] MEDS: Fluconazole 100 MG TAB PO SCH (10:19)
[2017-07-31] MEDS: Losartan 25 MG TAB PO SCH (10:19)
[2017-07-31] MEDS: Venlafaxine HCl XR 150 MG CAP PO SCH (10:20)
[2017-07-31] MEDS: Aripiprazole 10 MG TAB PO SCH (10:20)
[2017-07-31] MEDS: Multivits W-Minerals Liquid 15mL UDCUP PO SCH (10:21)
--- NOTE | 2017-07-31 10:36 | PDOC.PN ---
- Subjective Encounter Start Date: 07/31/17 Encounter Start Time: 10:00 Tati is seen in IMCU, she is Extubated and is Alert but disoriented,. Discussed with Son, he said,. pt is ususaly very active in her lifestyle. her mental status is sharp. - Objective MAR Reviewed: Yes Vital Signs & Weight: Vital Signs (12 hours) Temp Pulse Resp Pulse Ox 07/31/17 08:00 98.0 F 82 16 98 07/31/17 07:23 82 16 98 07/31/17 07:00 98.0 F 07/31/17 03:00 98.2 F 07/31/17 02:31 89 17 96 07/30/17 23:00 98.6 F Weight Admit Weight 163 lb 12.855 oz Weight 163 lb 9.328 oz Most Recent Monitor Data Heart Rate from ECG 105 NIBP 158/80 NIBP BP-Mean 108 Respiration from ECG 23 SpO2 97 I&O: 07/30/17 07/31/17 08/01/17 06:59 06:59 06:59 Intake Total 2802.7 2693 Output Total 2980 3225 350 Balance -177.3 -532 -350 Result Diagrams: 07/31/17 04:25 07/31/17 09:51 Additional Labs: Accuchecks 07/31/17 07/31/17 07/30/17 10:19 04:52 21:16 POC Glucose 100 110 74 07/30/17 15:54 POC Glucose 159 H Radiology Reviewed by me: Yes (Left pleural effsuion/ infiltrate.) Phys Exam - Physical Examination HEENT: PERRLA, moist MMs Neck: no nodes, no JVD Respiratory: no wheezing, no rales Cardiovascular: RRR, no significant murmur Gastrointestinal: soft, non-tender Musculoskeletal: no edema, pulses present Neurological: non-focal, normal sensation Lymphatic: no nodes Psychiatric: normal affect Skin: no rash, normal turgor Dx/Plan (1) Acute metabolic encephalopathy Code(s): G93.41 - METABOLIC ENCEPHALOPATHY Status: Acute Comment: Likely from the effects of Anesthesia, pt is Alcoholic and could be contributing to her late recovery of Mental status. Will closley monitor and Continue IV antibitoics for pneumonia. (2) Leucocytosis Code(s): D72.829 - ELEVATED WHITE BLOOD CELL COUNT, UNSPECIFIED Status: Acute Comment: Likely from pneumonia left Lung, Will closley Monitor, Will order procalcitonin and CRp to look for level of systemic bacterial infection. (3) Acute respiratory failure Code(s): J96.00 - ACUTE RESPIRATORY FAILURE, UNSP W HYPOXIA OR HYPERCAPNIA Status: Acute Qualifiers: Respiratory failure complication: hypoxia Qualified Code(s): J96.01 - Acute respiratory failure with hypoxia Comment: Extubated and moved to [facility] this morning,. Off of oxygen, saturinging fine at 95%. Will closley monitor in IMCU today. (4) Alcohol withdrawal Code(s): F10.239 - ALCOHOL DEPENDENCE WITH WITHDRAWAL, UNSPECIFIED Status: Acute Comment: continue ASE protocol, Will continue with Daily Thiamine. No Withdrawl seizures, she is 11 days off of alcohol drink. (5) Aspiration pneumonia Code(s): J69.0 - PNEUMONITIS DUE TO INHALATION OF FOOD AND VOMIT Status: Acute Comment: continue IV antibiotics per pulmonary. (6) UTI (urinary tract infection) Status: Acute Comment: E. coli UTI, continue IV antibiotics as below - Plan cont current plan of care, plan discussed w/ family, continue antibiotics, PT/OT , social work instructor, speech therapy (Will get speech therapy , pt is on tube feeding due to prolonged mechanical ventilation.), respiratory therapy, incentive spirometry, DVT proph w/lovenox * . - Discharge Day Encounter end time: 10:35 Review of Systems - Review of Systems Constitutional: weakness Eyes: negative: Pain, Vision Change, Conjunctivae Inflammation, Eyelid Inflammation, Redness, Other ENT: negative: Ear Pain, Ear Discharge, Nose Pain, Nose Discharge, Nose Congestion, Mouth Pain, Mouth Swelling, Throat Pain, Throat Swelling, Other Respiratory: negative: Cough, Dry, Shortness of Breath, Hemoptysis, SOB with Excertion, Pleuritic Pain, Sputum, Wheezing Cardiovascular: negative: chest pain, palpitations, orthopnea, paroxysmal nocturnal dyspnea, edema, light headedness, other Musculoskeletal: negative: Neck Pain, Shoulder Pain, Arm Pain, Back Pain, Hand Pain, Leg Pain, Foot Pain, Other Skin: Bruising. negative: Rash, Lesions, Valdez, Other - Medications/Allergies Allergies/Adverse Reactions: Allergies Allergy/AdvReac Type Severity Reaction Status Date / Time Penicillins Allergy Verified 11/27/13 11:08 Medications: Current Medications Acetaminophen (Tylenol) 650 mg PO Q4H PRN PRN Reason: Headache/Fever or Pain Last Admin: 07/30/17 03:10 Dose: 650 mg Acetaminophen (Tylenol) 650 mg MT Q4H PRN PRN Reason: Headache/Fever or Pain Albuterol/Ipratropium (Duoneb) 3 ml NEB [id number] [facility] Last Admin: 07/31/17 07:23 Dose: 3 ml Aripiprazole (Abilify) 5 mg PO DAILY [facility] Last Admin: 07/30/17 08:28 Dose: 5 mg Bisacodyl (Dulcolax) 10 mg PO DAILYPRN PRN PRN Reason: Constipation Dextrose/Water (Dextrose 50%) 25 gm SLOW IVP PRN PRN PRN Reason: Hypoglycemia Fluconazole (Diflucan) 100 mg PO DAILY [facility] Stop: 08/02/17 09:01 Last Admin: 07/30/17 08:27 Dose: 100 mg Folic Acid (Folvite) 1 mg PO DAILY [facility] Last Admin: 07/30/17 08:27 Dose: 1 mg Glucagon (Glucagon) 1 mg IM PRN PRN PRN Reason: Hypoglycemia Heparin Sodium (Porcine) (Heparin) 5,000 units SC TID [facility] Last Admin: 07/30/17 21:09 Dose: 5,000 units Dextrose/Water (D5w) 1,000 mls @ 0 mls/hr IV .Q0M PRN; As Directed PRN Reason: Hypoglycemia Potassium Chloride 40 meq/ (Sodium Chloride) 270 mls @ 135 mls/hr IVPB ASDIR PRN PRN Reason: FOR SERUM K+ 2.5 - 3.5 Potassium Chloride 40 meq/ (Device) 100 mls @ 50 mls/hr IVPB ASDIR PRN PRN Reason: FOR SERUM K+ 2.5 - 3.5 Magnesium Sulfate 1 gm/ Sodium (Chloride) 102 mls @ 102 mls/hr IV PRN PRN PRN Reason: MAG LEVEL 1.4 - 2.0 Magnesium Sulfate 2 gm/ Device 100 mls @ 100 mls/hr IVPB ASDIR PRN PRN Reason: MAGNESIUM < 1.4 Potassium Phosphate 9 mmol/ (Sodium Chloride) 103 mls @ 25.75 mls/hr IVPB ASDIR PRN PRN Reason: Phosphate 1.0-1.8 Potassium Phosphate 12 mmol/ (Sodium Chloride) 254 mls @ 63.5 mls/hr IV ASDIR PRN PRN Reason: Serum phosphate 0.5-0.9 Potassium Phosphate 15 mmol/ (Sodium Chloride) 255 mls @ 63.75 mls/hr IV ASDIR PRN PRN Reason: Serum Phos < 0.5 Dextrose/Water (D5w) 1,000 mls @ 50 mls/hr IV .Q20H [facility] Last Admin: 07/30/17 21:09 Dose: 1,000 mls Dexmedetomidine HCl 1,000 mcg/ (Sodium Chloride) 250 mls @ 0 mls/hr IVPB INF ISHAAN; Titrate PRN Reason: Protocol Last Admin: 07/30/17 05:38 Dose: 250 mls Vancomycin HCl 1 gm/ Device 200 mls @ 200 mls/hr IVPB 0300,1500 [facility] Last Admin: 07/31/17 02:05 Dose: 200 mls Insulin Human Lispro (Humalog) 0 units SC .MILD SLIDING SCALE PRN PRN Reason: Mild Correctional Scale Last Admin: 07/30/17 15:54 Dose: 2 unit Iron/Minerals/Multivitamins (Certa Lisa Liquid) 15 ml PO DAILY [facility] Last Admin: 07/30/17 08:27 Dose: 15 ml Labetalol HCl (Normodyne) 20 mg SLOW IVP Q15MIN PRN PRN Reason: SBP>180 Last Admin: 07/28/17 13:00 Dose: 20 mg Levothyroxine Sodium (Synthroid) 125 mcg PO 0600 [facility] Last Admin: 07/31/17 05:11 Dose: 125 mcg Lorazepam (Ativan) 2 mg SLOW IVP Q1H PRN PRN Reason: Breakthrough agitation Stop: 08/22/17 07:50 Last Admin: 07/30/17 01:34 Dose: 2 mg Losartan Potassium (Cozaar) 100 mg PO DAILY [facility] Last Admin: 07/30/17 08:26 Dose: 100 mg Magnesium Oxide (Magnesium Oxide) 400 mg PO DAILY [facility] Last Admin: 07/30/17 08:27 Dose: 400 mg Magnesium Oxide (Magnesium Oxide) 400 mg PO BIDPRN PRN PRN Reason: FOR SERUM MAG 1.4 - 2.0 Last Admin: 07/29/17 10:54 Dose: 400 mg Magnesium Oxide (Magnesium Oxide) 800 mg PO PRN PRN PRN Reason: FOR SERUM MAG < 1.4 Miscellaneous Medication (Ventilator Sedation Protocol) 1 each FS ONE [facility] Stop: 08/07/17 07:47 Miscellaneous Medication (Ccu Electrolyte Replacement) 1 each FS ONE [facility] Stop: 08/06/17 07:55 Miscellaneous Medication (Phos-Nak) 1 pkt PO TIDPRN PRN PRN Reason: FOR PHOS LEVEL 1.0 - 1.8 Miscellaneous Medication (Phos-Nak) 2 pkt PO TIDPRN PRN PRN Reason: FOR PHOS LEVEL 0.5 - 1.0 Nystatin (Mycostatin Powder) 1 gm TOP BID PRN PRN Reason: Topical Irritations Last Admin: 07/31/17 05:16 Dose: 1 applic Pantoprazole Sodium (Protonix) 40 mg PO DAILY [facility] Last Admin: 07/30/17 08:26 Dose: 40 mg Potassium Chloride (K-Dur) 40 meq PO ASDIR PRN PRN Reason: FOR SERUM K+ 2.5 - 3.5 Potassium Chloride (Klor-Con) 40 meq PER TUBE ASDIR PRN PRN Reason: FOR SERUM K+ 2.5-3.5 Last Admin: 07/31/17 05:55 Dose: 40 meq Sodium Chloride (Flush - Normal Saline) 10 ml IVF Q12HR [facility] Last Admin: 07/30/17 21:09 Dose: 10 ml Sodium Chloride (Flush - Normal Saline) 10 ml IVF PRN PRN PRN Reason: Saline Flush Last Admin: 07/28/17 09:24 Dose: 10 ml Thiamine HCl (Thiamine) 100 mg PO DAILY [facility] Last Admin: 07/30/17 08:27 Dose: 100 mg Venlafaxine HCl (Effexor Xr) 150 mg PO DAILY [facility] Last Admin: 07/30/17 08:28 Dose: 150 mg
--- NOTE | 2017-07-31 15:15 | RAD ---
ONE VIEW ABDOMEN: History: NG tube placement. Comparison: None. FINDINGS: Supine radiograph demonstrates NG tube in the left upper quadrant. Bowel gas pattern is nonspecific. No evidence of pneumoperitoneum in supine projection. IMPRESSION: Nonspecific bowel gas pattern. POS: VIKI
[2017-07-31] MEDS ORDERED: Pancrelipase DR 12000 1 CAP PER TUBE PRN (17:20)
[2017-07-31] MEDS ORDERED: Sodium Bicarbonate Tab 325 MG TAB PER TUBE PRN (17:21)
[2017-07-31] MEDS: Dextrose 5% in Water 1,000 ML IV SCH (20:25)
[2017-08-01 03:11] LABS: Band 6 % (5-11); Hemoglobin 12.5 g/dL (12.0-16.0); Lymphocytes 8 % (21-51); MDiff Complete? YES; Mean Corpuscular HGB CONC 34.6 g/dL (32.0-36.0); Mean Corpuscular Hemoglobin 36.5 pg (27.0-31.0); Mean Platelet Volume 7.2 fL (7.4-10.4); Monocytes 4 % (0-10); Neutrophil 82 % (42-75); PLT Morphology Comment Appears Adequate; Platelet Count 217 thou/uL (130-400); RBC Distribution Width 13.7 % (11.5-14.5); Red Blood Cell (RBC) Count 3.44 mill/uL (4.20-5.40); White Blood Cell (WBC) Count 22.3 thou/uL (4.8-10.8)
[2017-08-01 03:16] LABS: Vancomycin, Trough 22.9 ug/mL
[2017-08-01 03:23] LABS: Anion Gap 14 mmol/L (10-20); BUN (Urea Nitrogen) 21 mg/dL (9.8-20.1); Calc. Creatinine Clearance 84 mL/min (70-130); Calcium 9.7 mg/dL (7.8-10.44); Carbon Dioxide 26 mmol/L (23-31); Chloride 101 mmol/L (98-107); Estimated GFR-MDRD 78; Glucose 155 mg/dL (80-115); Magnesium 2.1 mg/dL (1.6-2.6); Phosphorus 3.1 mg/dL (2.3-4.7); Potassium 3.3 mmol/L (3.5-5.1); Sodium 138 mmol/L (136-145)
[2017-08-01] MEDS: Vancomycin HCl 1 GM in Premix Bag 1 BAG IVPB SCH ×2 (03:59→15:16)
[2017-08-01] MEDS: HumaLOG 300 UNITS/3 ML VIAL SC PRN (04:10)
[2017-08-01] MEDS: Levothyroxine Sodium 125 MCG TAB PO SCH (05:36)
[2017-08-01] MEDS: Nystatin Powder 15 GM BOT TOP PRN (05:45)
--- NOTE | 2017-08-01 08:49 | PRG ---
DATE OF SERVICE: 08/01/2017 Ms. Cummings remains confused. She had to be moved over close to the nursing station. PHYSICAL EXAMINATION: VITAL SIGNS: Temperature is 98.1, pulse 122, respirations 13, O2 sat 95%, blood pressure 155/88. 24 hour intake 1940, output 3350. HEENT: Unremarkable. NECK: No adenopathy or JVD. LUNGS: Clear. CARDIOVASCULAR: S1, S2 regular. ABDOMEN: Soft, nontender. EXTREMITIES: No edema. LABORATORY DATA: White blood cell count 22.3, hematocrit 36.3, platelet count 217. Sodium 138, pota ssium 3.3, chloride 101, CO2 26, BUN 21, creatinine 0.7, glucose 155. ASSESSMENT: 1. Encephalopathy. 2. Alcohol withdrawal. 3. Consistently elevated white blood cell count with only coag negative Staph growing on recent cult ures. PLAN: 1. Continuing vancomycin. 2. Hopefully, NG tube can come out soon as she is cleared to eat. 3. Discontinue Li in an effort to try to remove devices that she is tugging at. 4. Steroids were stopped yesterday.
[2017-08-01] MEDS: Losartan 25 MG TAB PO SCH (09:36)
[2017-08-01] MEDS: Pantoprazole 40 MG GRANULES PACKET PO SCH (09:37)
[2017-08-01] MEDS: Folic Acid 1 MG TAB PO SCH (09:37)
[2017-08-01] MEDS: Magnesium Oxide 400 MG TAB PO SCH (09:37)
[2017-08-01] MEDS: Fluconazole 100 MG TAB PO SCH (09:37)
[2017-08-01] MEDS: Aripiprazole 10 MG TAB PO SCH (09:37)
[2017-08-01] MEDS: Venlafaxine HCl XR 150 MG CAP PO SCH (09:37)
[2017-08-01] MEDS: Multivits W-Minerals Liquid 15mL UDCUP PO SCH (09:42)
[2017-08-01] MEDS: Heparin 5,000 UNITS/ML VIAL SC SCH ×3 (09:42→20:30)
--- NOTE | 2017-08-01 13:48 | PDOC.PN ---
- Subjective Encounter Start Date: 08/01/17 Encounter Start Time: 12:00 Pt is seen today, alert but disoriented and is restrained as she is pulling on IV lines and NG tube, Patient is admitted with Encephalopathy from UTI and respiratory failure, extubated yesterday. Family is worried about Her worseing mental status, Pt is known Alcoholic. - Objective MAR Reviewed: Yes Vital Signs & Weight: Vital Signs (12 hours) Temp Pulse Pulse Pulse Resp BP BP 08/01/17 11:25 98.4 F 117 H 15 08/01/17 11:06 105 H 16 08/01/17 10:10 105 H 100 153/78 H 156/79 H 08/01/17 08:12 98.1 F 122 H 13 08/01/17 07:23 98.1 F 122 H 13 08/01/17 07:15 110 H 18 08/01/17 04:00 98.8 F 121 H 20 08/01/17 02:39 08/01/17 02:02 114 H 18 BP Pulse Ox Pulse Ox Pulse Ox 08/01/17 11:25 158/85 H 98 08/01/17 11:06 99 08/01/17 10:10 99 98 08/01/17 08:12 98 08/01/17 07:23 155/88 H 95 08/01/17 07:15 99 08/01/17 04:00 155/91 H 97 08/01/17 02:39 97 08/01/17 02:02 96 Weight Admit Weight 163 lb 12.855 oz Weight 153 lb Most Recent Monitor Data Heart Rate from ECG 105 NIBP 158/80 NIBP BP-Mean 108 Respiration from ECG 23 SpO2 97 I&O: 07/31/17 08/01/17 08/02/17 06:59 06:59 06:59 Intake Total 7383 1940 30 Output Total 5714 6152 900 Balance -532 -1410 -870 Result Diagrams: 08/01/17 02:30 08/01/17 02:30 Additional Labs: Accuchecks 08/01/17 08/01/17 07/31/17 11:03 04:11 22:01 POC Glucose 184 H 166 H 138 H 07/31/17 16:41 POC Glucose 121 H Radiology Reviewed by me: Yes Phys Exam - Physical Examination HEENT: PERRLA, moist MMs Neck: no nodes, no JVD Respiratory: no wheezing, no rales Cardiovascular: RRR, no significant murmur Gastrointestinal: soft, non-tender Musculoskeletal: no edema, pulses present Neurological: non-focal Dx/Plan (1) Acute metabolic encephalopathy Code(s): G93.41 - METABOLIC ENCEPHALOPATHY Status: Acute Comment: pt is Alcoholic and could be contributing to her late recovery of Mental status. Persistant family wants further aevaalution of her MS changes. Will get CT head to R/o Stroke, Will Consult Neurology. Will also order Ammonia. (2) Leucocytosis Code(s): D72.829 - ELEVATED WHITE BLOOD CELL COUNT, UNSPECIFIED Status: Acute Comment: Likely from pneumonia left Lung, Will closley Monitor,Procalcitonin was < 0.5 suggests it is Not a bacterial infection but Likely it could from steroids, since Steroids are stopped, hopefully it should come down. (3) Acute respiratory failure Code(s): J96.00 - ACUTE RESPIRATORY FAILURE, UNSP W HYPOXIA OR HYPERCAPNIA Status: Acute Qualifiers: Respiratory failure complication: hypoxia Qualified Code(s): J96.01 - Acute respiratory failure with hypoxia Comment: on oxygen, saturinging fine at 95%. Will closley monitor in IMCU today. (4) Alcohol withdrawal Code(s): F10.239 - ALCOHOL DEPENDENCE WITH WITHDRAWAL, UNSPECIFIED Status: Acute Comment: continue ASE protocol, Will continue with Daily Thiamine. No Withdrawl seizures, she is 11 days off of alcohol drink. (5) Aspiration pneumonia Code(s): J69.0 - PNEUMONITIS DUE TO INHALATION OF FOOD AND VOMIT Status: Acute Comment: continue IV antibiotics per pulmonary. (6) UTI (urinary tract infection) Status: Acute Comment: E. coli UTI, continue IV antibiotics as below - Plan cont current plan of care, plan discussed w/ family, jorge catheter (d/c Jorge) , continue antibiotics, PT/OT, speech therapy, respiratory therapy * . - Discharge Day Encounter end time: 12:35 Review of Systems - Review of Systems Eyes: negative: Pain, Vision Change, Conjunctivae Inflammation, Eyelid Inflammation, Redness, Other Respiratory: negative: Cough, Dry, Shortness of Breath, Hemoptysis, SOB with Excertion, Pleuritic Pain, Sputum, Wheezing Cardiovascular: negative: chest pain, palpitations, orthopnea, paroxysmal nocturnal dyspnea, edema, light headedness, other Gastrointestinal: negative: Nausea, Vomiting, Abdominal Pain, Diarrhea, Constipation, Melena, Hematochezia, Other Musculoskeletal: negative: Neck Pain, Shoulder Pain, Arm Pain, Back Pain, Hand Pain, Leg Pain, Foot Pain, Other Skin: negative: Rash, Lesions, Valdez, Bruising, Other - Medications/Allergies Allergies/Adverse Reactions: Allergies Allergy/AdvReac Type Severity Reaction Status Date / Time Penicillins Allergy Verified 11/27/13 11:08 Medications: Current Medications Acetaminophen (Tylenol) 650 mg PO Q4H PRN PRN Reason: Headache/Fever or Pain Last Admin: 07/30/17 03:10 Dose: 650 mg Acetaminophen (Tylenol) 650 mg NV Q4H PRN PRN Reason: Headache/Fever or Pain Albuterol/Ipratropium (Duoneb) 3 ml NEB [id number] [facility] Last Admin: 08/01/17 11:06 Dose: 3 ml Lipase/Protease/Amylase ([place] [id number]) 1 cap PER TUBE PRN PRN PRN Reason: TUBE OCCLUSION [place] Aripiprazole (Abilify) 5 mg PO DAILY [facility] Last Admin: 08/01/17 09:37 Dose: 5 mg Bisacodyl (Dulcolax) 10 mg PO DAILYPRN PRN PRN Reason: Constipation Dextrose/Water (Dextrose 50%) 25 gm SLOW IVP PRN PRN PRN Reason: Hypoglycemia Fluconazole (Diflucan) 100 mg PO DAILY [facility] Stop: 08/02/17 09:01 Last Admin: 08/01/17 09:37 Dose: 100 mg Folic Acid (Folvite) 1 mg PO DAILY [facility] Last Admin: 08/01/17 09:37 Dose: 1 mg Glucagon (Glucagon) 1 mg IM PRN PRN PRN Reason: Hypoglycemia Heparin Sodium (Porcine) (Heparin) 5,000 units SC TID [facility] Last Admin: 08/01/17 09:42 Dose: 5,000 units Dextrose/Water (D5w) 1,000 mls @ 0 mls/hr IV .Q0M PRN; As Directed PRN Reason: Hypoglycemia Potassium Chloride 40 meq/ (Sodium Chloride) 270 mls @ 135 mls/hr IVPB ASDIR PRN PRN Reason: FOR SERUM K+ 2.5 - 3.5 Potassium Chloride 40 meq/ (Device) 100 mls @ 50 mls/hr IVPB ASDIR PRN PRN Reason: FOR SERUM K+ 2.5 - 3.5 Magnesium Sulfate 1 gm/ Sodium (Chloride) 102 mls @ 102 mls/hr IV PRN PRN PRN Reason: MAG LEVEL 1.4 - 2.0 Magnesium Sulfate 2 gm/ Device 100 mls @ 100 mls/hr IVPB ASDIR PRN PRN Reason: MAGNESIUM < 1.4 Potassium Phosphate 9 mmol/ (Sodium Chloride) 103 mls @ 25.75 mls/hr IVPB ASDIR PRN PRN Reason: Phosphate 1.0-1.8 Potassium Phosphate 12 mmol/ (Sodium Chloride) 254 mls @ 63.5 mls/hr IV ASDIR PRN PRN Reason: Serum phosphate 0.5-0.9 Potassium Phosphate 15 mmol/ (Sodium Chloride) 255 mls @ 63.75 mls/hr IV ASDIR PRN PRN Reason: Serum Phos < 0.5 Dextrose/Water (D5w) 1,000 mls @ 50 mls/hr IV .Q20H [facility] Last Admin: 07/31/17 20:25 Dose: 1,000 mls Vancomycin HCl 1 gm/ Device 200 mls @ 200 mls/hr IVPB 0300,1500 [facility] Last Admin: 08/01/17 03:59 Dose: 200 mls Insulin Human Lispro (Humalog) 0 units SC .MILD SLIDING SCALE PRN PRN Reason: Mild Correctional Scale Last Admin: 08/01/17 04:10 Dose: 2 unit Iron/Minerals/Multivitamins (Certa Lisa Liquid) 15 ml PO DAILY [facility] Last Admin: 08/01/17 09:42 Dose: 15 ml Labetalol HCl (Normodyne) 20 mg SLOW IVP Q15MIN PRN PRN Reason: SBP>180 Last Admin: 07/28/17 13:00 Dose: 20 mg Levothyroxine Sodium (Synthroid) 125 mcg PO 0600 [facility] Last Admin: 08/01/17 05:36 Dose: 125 mcg Losartan Potassium (Cozaar) 100 mg PO DAILY [facility] Last Admin: 08/01/17 09:36 Dose: 100 mg Magnesium Oxide (Magnesium Oxide) 400 mg PO DAILY [facility] Last Admin: 08/01/17 09:37 Dose: 400 mg Magnesium Oxide (Magnesium Oxide) 400 mg PO BIDPRN PRN PRN Reason: FOR SERUM MAG 1.4 - 2.0 Last Admin: 07/29/17 10:54 Dose: 400 mg Magnesium Oxide (Magnesium Oxide) 800 mg PO PRN PRN PRN Reason: FOR SERUM MAG < 1.4 Miscellaneous Medication (Ccu Electrolyte Replacement) 1 each FS ONE [facility] Stop: 08/06/17 07:55 Miscellaneous Medication (Phos-Nak) 1 pkt PO TIDPRN PRN PRN Reason: FOR PHOS LEVEL 1.0 - 1.8 Miscellaneous Medication (Phos-Nak) 2 pkt PO TIDPRN PRN PRN Reason: FOR PHOS LEVEL 0.5 - 1.0 Nystatin (Mycostatin Powder) 1 gm TOP BID PRN PRN Reason: Topical Irritations Last Admin: 08/01/17 05:45 Dose: 1 applic Pantoprazole Sodium (Protonix) 40 mg PO DAILY [facility] Last Admin: 08/01/17 09:37 Dose: 40 mg Potassium Chloride (K-Dur) 40 meq PO ASDIR PRN PRN Reason: FOR SERUM K+ 2.5 - 3.5 Potassium Chloride (Klor-Con) 40 meq PER TUBE ASDIR PRN PRN Reason: FOR SERUM K+ 2.5-3.5 Last Admin: 08/01/17 03:59 Dose: 40 meq Sodium Bicarbonate (Bicarbonate, Sodium) 650 mg PER TUBE PRN PRN PRN Reason: TUBE OCCLUSION [place] Sodium Chloride (Flush - Normal Saline) 10 ml IVF Q12HR [facility] Last Admin: 08/01/17 09:37 Dose: 10 ml Sodium Chloride (Flush - Normal Saline) 10 ml IVF PRN PRN PRN Reason: Saline Flush Last Admin: 07/28/17 09:24 Dose: 10 ml Thiamine HCl (Thiamine) 100 mg PO DAILY [facility] Last Admin: 08/01/17 09:42 Dose: 100 mg Venlafaxine HCl (Effexor Xr) 150 mg PO DAILY [facility] Last Admin: 08/01/17 09:37 Dose: 150 mg
--- NOTE | 2017-08-01 15:25 | CT ---
CT OF HEAD NONCONTRAST: CLINICAL HISTORY: Altered mental status. FINDINGS: There is age-appropriate size of the ventricular system. Mild chronic microvascular ischemic disease is present. There is no intracranial hemorrhage, mass effect, or midline shift. Patient motion is present which limits evaluation. IMPRESSION: 1. No acute intracranial hemorrhage or mass effect. 2. 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 POS: CHRISTY
--- NOTE | 2017-08-01 17:02 | PRG ---
DATE OF SERVICE: 08/01/2017 NEUROLOGIC FOLLOWUP NOTE CONSULTING PHYSICIAN: Hospitalist Service. HISTORY: Ms. Cummings is admitted with a urinary tract infection secondary to respiratory failure. After being treated, she was subsequently extubated. She has been persistently confused. Son report s that she looked a little better yesterday as far as carrying on conversations. She remains confuse d about her ongoing circumstances. They had noticed some short term memory difficulties prior to adm ission. She was otherwise handling her personal affairs well. She drank about a bottle of wine per day. She has not shown any signs of withdrawal. Her ammonia level was 30. CT scan of the brain was unremarkable. Her exam is nonfocal. I suspect that she will gradually clear back to her baseline with a bit more time. There may be some early dementia that we can evaluate as an outpatient. I do not see any particular items to add to t he situation at this point.
[2017-08-02] MEDS: Dextrose 5% in Water 1,000 ML IV SCH ×2 (01:29→21:02)
[2017-08-02] MEDS: Vancomycin HCl 1 GM in Premix Bag 1 BAG IVPB SCH ×2 (02:36→17:38)
[2017-08-02 05:31] LABS: Anion Gap 14 mmol/L (10-20); BUN (Urea Nitrogen) 13 mg/dL (9.8-20.1); Calc. Creatinine Clearance 83 mL/min (70-130); Calcium 9.2 mg/dL (7.8-10.44); Carbon Dioxide 23 mmol/L (23-31); Chloride 102 mmol/L (98-107); Estimated GFR-MDRD 84; Glucose 137 mg/dL (80-115); Magnesium 2.1 mg/dL (1.6-2.6); Phosphorus 3.5 mg/dL (2.3-4.7); Potassium 3.1 mmol/L (3.5-5.1); Sodium 136 mmol/L (136-145)
[2017-08-02 05:57] LABS: Band 15 % (5-11); Hemoglobin 11.7 g/dL (12.0-16.0); Lymphocytes 3 % (21-51); MDiff Complete? YES; Macrocytosis MODERATE=16-30 cells (100X) (0-5/hpf); Mean Corpuscular Hemoglobin 35.4 pg (27.0-31.0); Mean Platelet Volume 6.9 fL (7.4-10.4); Monocytes 6 % (0-10); Neutrophil 76 % (42-75); PLT Morphology Comment Appears Adequate; Platelet Count 251 thou/uL (130-400); RBC Distribution Width 13.5 % (11.5-14.5); Red Blood Cell (RBC) Count 3.31 mill/uL (4.20-5.40)
[2017-08-02] MEDS: Levothyroxine Sodium 125 MCG TAB PO SCH (06:20)
[2017-08-02 08:32] VITALS: BMI 25.1
[2017-08-02] MEDS: Venlafaxine HCl XR 150 MG CAP PO SCH (09:10)
[2017-08-02] MEDS: Pantoprazole 40 MG GRANULES PACKET PO SCH (09:10)
[2017-08-02] MEDS: Magnesium Oxide 400 MG TAB PO SCH (09:10)
[2017-08-02] MEDS: Losartan 25 MG TAB PO SCH (09:10)
[2017-08-02] MEDS: Folic Acid 1 MG TAB PO SCH (09:10)
[2017-08-02] MEDS: Fluconazole 100 MG TAB PO SCH (09:10)
[2017-08-02] MEDS: Aripiprazole 10 MG TAB PO SCH (09:11)
[2017-08-02] MEDS: Multivits W-Minerals Liquid 15mL UDCUP PO SCH (09:11)
[2017-08-02] MEDS: Heparin 5,000 UNITS/ML VIAL SC SCH ×3 (09:12→21:00)
--- NOTE | 2017-08-02 09:45 | PRG ---
DATE OF SERVICE: 08/02/2017 SUBJECTIVE: The patient seems to be doing better in terms of all of her physical issues, but is stil l encephalopathic at times. PHYSICAL EXAMINATION: VITAL SIGNS: Temperature 98.9, pulse 115, respirations 15, O2 saturation 98%, blood pressure 146/66. A 24-hour intake 840, output 900. HEENT: Unremarkable. NECK: No JVD. CHEST: Clear without wheezing. CARDIAC: S1 and S2 regular. ABDOMEN: Soft. EXTREMITIES: No edema. LABORATORY DATA: White blood cell count remains elevated at 25, hematocrit 34, platelet count 251, 7 6% neutrophils, 15% bands. Sodium 136, potassium 3.1, chloride 102, CO2 of 23, BUN 13, creatinine 0. 7, glucose 137. Microbiology shows no further date to this point. ASSESSMENT: 1. Sepsis syndrome - she is growing out methicillin-resistant Staphylococcus epidermidis in the past . She also had E. coli in her urine on admission. Surprisingly, her white count and bandemia remain s high. 2. Continued altered mental status, which may be in part due to sepsis, but may also be due to under lying dementia. 3. Previous alcohol abuse. 4. Recent episode of acute respiratory failure. PLAN: Might be barber to go ahead and reculture her and add antibiotics if anything grows out and thos e cultures were drawn 2 days ago. We will follow up on those results and adjust the antibiotics acco rdingly. She is remaining in the IMCU for the current time because she has to be watched closely due to risk of getting up falling.
--- NOTE | 2017-08-02 14:16 | PDOC.PN ---
- Subjective Encounter Start Date: 08/02/17 Encounter Start Time: 11:00 Patient is seen today, remains altered but some improveemnt, She is admitted with AMS and respiratory failure, now having high WBC, need further sepsis evalaution. - Objective MAR Reviewed: Yes Vital Signs & Weight: Vital Signs (12 hours) Temp Pulse Resp BP Pulse Ox 08/02/17 11:41 98.2 F 100 15 127/65 97 08/02/17 10:35 111 H 18 99 08/02/17 08:09 98.9 F 115 H 15 146/66 H 98 08/02/17 08:03 108 H 16 08/02/17 07:52 98.7 F 101 H 18 99 08/02/17 04:00 97.5 F L 121 H 18 118/70 99 Weight Admit Weight 163 lb 12.855 oz Weight 151 lb 3 oz Most Recent Monitor Data Heart Rate from ECG 105 NIBP 158/80 NIBP BP-Mean 108 Respiration from ECG 23 SpO2 97 I&O: 08/01/17 08/02/17 08/03/17 06:59 06:59 06:59 Intake Total 1940 840 Output Total 3350 900 Balance -1410 -60 Result Diagrams: 08/02/17 05:08 08/02/17 05:08 Additional Labs: Accuchecks 08/02/17 08/01/17 06:05 20:32 POC Glucose 120 H 150 H Radiology Reviewed by me: Yes Phys Exam - Physical Examination HEENT: PERRLA, moist MMs Neck: no nodes, no JVD Respiratory: no wheezing, no rales Cardiovascular: RRR, no significant murmur Gastrointestinal: soft, non-tender Musculoskeletal: no edema, pulses present Neurological: non-focal, moves all 4 limbs Lymphatic: no nodes Psychiatric: normal affect Skin: no rash, normal turgor Dx/Plan (1) Acute metabolic encephalopathy Code(s): G93.41 - METABOLIC ENCEPHALOPATHY Status: Acute Comment: pt is Alcoholic and could be contributing to her late recovery of Mental status. Persistant family wants further aevaalution of her MS changes. CT head was normal, Ammonia was normal, pt will be seen by neurology today, will follow recommedations. (2) Leucocytosis Code(s): D72.829 - ELEVATED WHITE BLOOD CELL COUNT, UNSPECIFIED Status: Acute Comment: Worseing WBC and bandemia, will need to look for Infection in CSF for possible meneingitis, will order Lumar pucture, CSF analysis. (3) Acute respiratory failure Code(s): J96.00 - ACUTE RESPIRATORY FAILURE, UNSP W HYPOXIA OR HYPERCAPNIA Status: Acute Qualifiers: Respiratory failure complication: hypoxia Qualified Code(s): J96.01 - Acute respiratory failure with hypoxia Comment: off of oxygen., Will closley monitor in IMCU today. (4) Alcohol withdrawal Code(s): F10.239 - ALCOHOL DEPENDENCE WITH WITHDRAWAL, UNSPECIFIED Status: Acute Comment: continue ASE protocol, Will continue with Daily Thiamine. No Withdrawl seizures, she is 11 days off of alcohol drink. (5) Aspiration pneumonia Code(s): J69.0 - PNEUMONITIS DUE TO INHALATION OF FOOD AND VOMIT Status: Acute Comment: continue IV antibiotics per pulmonary. (6) UTI (urinary tract infection) Status: Acute Comment: E. coli UTI, continue IV antibiotics as below (7) Abacterial meningitis Code(s): G03.0 - NONPYOGENIC MENINGITIS Status: Acute Comment: Need to r/o mengitis ? bacterial/ viral/ fungal. Wait for results. - Plan * . - Discharge Day Encounter end time: 11:35 Review of Systems - Review of Systems Eyes: negative: Pain, Vision Change, Conjunctivae Inflammation, Eyelid Inflammation, Redness, Other Respiratory: negative: Cough, Dry, Shortness of Breath, Hemoptysis, SOB with Excertion, Pleuritic Pain, Sputum, Wheezing Cardiovascular: negative: chest pain, palpitations, orthopnea, paroxysmal nocturnal dyspnea, edema, light headedness, other - Medications/Allergies Allergies/Adverse Reactions: Allergies Allergy/AdvReac Type Severity Reaction Status Date / Time Penicillins Allergy Verified 11/27/13 11:08 Medications: Current Medications Acetaminophen (Tylenol) 650 mg PO Q4H PRN PRN Reason: Headache/Fever or Pain Last Admin: 07/30/17 03:10 Dose: 650 mg Acetaminophen (Tylenol) 650 mg NV Q4H PRN PRN Reason: Headache/Fever or Pain Albuterol/Ipratropium (Duoneb) 3 ml NEB [id number] ISHAAN Last Admin: 08/02/17 10:35 Dose: 3 ml Lipase/Protease/Amylase ([place] [id number]) 1 cap PER TUBE PRN PRN PRN Reason: TUBE OCCLUSION [place] Aripiprazole (Abilify) 5 mg PO DAILY [facility] Last Admin: 08/02/17 09:11 Dose: 5 mg Bisacodyl (Dulcolax) 10 mg PO DAILYPRN PRN PRN Reason: Constipation Dextrose/Water (Dextrose 50%) 25 gm SLOW IVP PRN PRN PRN Reason: Hypoglycemia Folic Acid (Folvite) 1 mg PO DAILY [facility] Last Admin: 08/02/17 09:10 Dose: 1 mg Glucagon (Glucagon) 1 mg IM PRN PRN PRN Reason: Hypoglycemia Heparin Sodium (Porcine) (Heparin) 5,000 units SC TID [facility] Last Admin: 08/02/17 09:12 Dose: 5,000 units Dextrose/Water (D5w) 1,000 mls @ 0 mls/hr IV .Q0M PRN; As Directed PRN Reason: Hypoglycemia Potassium Chloride 40 meq/ (Sodium Chloride) 270 mls @ 135 mls/hr IVPB ASDIR PRN PRN Reason: FOR SERUM K+ 2.5 - 3.5 Potassium Chloride 40 meq/ (Device) 100 mls @ 50 mls/hr IVPB ASDIR PRN PRN Reason: FOR SERUM K+ 2.5 - 3.5 Magnesium Sulfate 1 gm/ Sodium (Chloride) 102 mls @ 102 mls/hr IV PRN PRN PRN Reason: MAG LEVEL 1.4 - 2.0 Magnesium Sulfate 2 gm/ Device 100 mls @ 100 mls/hr IVPB ASDIR PRN PRN Reason: MAGNESIUM < 1.4 Potassium Phosphate 9 mmol/ (Sodium Chloride) 103 mls @ 25.75 mls/hr IVPB ASDIR PRN PRN Reason: Phosphate 1.0-1.8 Potassium Phosphate 12 mmol/ (Sodium Chloride) 254 mls @ 63.5 mls/hr IV ASDIR PRN PRN Reason: Serum phosphate 0.5-0.9 Potassium Phosphate 15 mmol/ (Sodium Chloride) 255 mls @ 63.75 mls/hr IV ASDIR PRN PRN Reason: Serum Phos < 0.5 Dextrose/Water (D5w) 1,000 mls @ 50 mls/hr IV .Q20H [facility] Last Admin: 08/02/17 01:29 Dose: 1,000 mls Vancomycin HCl 1 gm/ Device 200 mls @ 200 mls/hr IVPB 0300,1500 [facility] Last Admin: 08/02/17 02:36 Dose: 200 mls Insulin Human Lispro (Humalog) 0 units SC .MILD SLIDING SCALE PRN PRN Reason: Mild Correctional Scale Last Admin: 08/01/17 04:10 Dose: 2 unit Iron/Minerals/Multivitamins (Certa Lisa Liquid) 15 ml PO DAILY [facility] Last Admin: 08/02/17 09:11 Dose: 15 ml Labetalol HCl (Normodyne) 20 mg SLOW IVP Q15MIN PRN PRN Reason: SBP>180 Last Admin: 07/28/17 13:00 Dose: 20 mg Levothyroxine Sodium (Synthroid) 125 mcg PO 0600 [facility] Last Admin: 08/02/17 06:20 Dose: 125 mcg Losartan Potassium (Cozaar) 100 mg PO DAILY [facility] Last Admin: 08/02/17 09:10 Dose: 100 mg Magnesium Oxide (Magnesium Oxide) 400 mg PO DAILY [facility] Last Admin: 08/02/17 09:10 Dose: 400 mg Magnesium Oxide (Magnesium Oxide) 400 mg PO BIDPRN PRN PRN Reason: FOR SERUM MAG 1.4 - 2.0 Last Admin: 07/29/17 10:54 Dose: 400 mg Magnesium Oxide (Magnesium Oxide) 800 mg PO PRN PRN PRN Reason: FOR SERUM MAG < 1.4 Miscellaneous Medication (Ccu Electrolyte Replacement) 1 each FS ONE [facility] Stop: 08/06/17 07:55 Miscellaneous Medication (Phos-Nak) 1 pkt PO TIDPRN PRN PRN Reason: FOR PHOS LEVEL 1.0 - 1.8 Miscellaneous Medication (Phos-Nak) 2 pkt PO TIDPRN PRN PRN Reason: FOR PHOS LEVEL 0.5 - 1.0 Nystatin (Mycostatin Powder) 1 gm TOP BID PRN PRN Reason: Topical Irritations Last Admin: 08/01/17 05:45 Dose: 1 applic Pantoprazole Sodium (Protonix) 40 mg PO DAILY [facility] Last Admin: 08/02/17 09:10 Dose: 40 mg Potassium Chloride (K-Dur) 40 meq PO ASDIR PRN PRN Reason: FOR SERUM K+ 2.5 - 3.5 Potassium Chloride (Klor-Con) 40 meq PER TUBE ASDIR PRN PRN Reason: FOR SERUM K+ 2.5-3.5 Last Admin: 08/01/17 03:59 Dose: 40 meq Sodium Bicarbonate (Bicarbonate, Sodium) 650 mg PER TUBE PRN PRN PRN Reason: TUBE OCCLUSION TX Sodium Chloride (Flush - Normal Saline) 10 ml IVF Q12HR [facility] Last Admin: 08/02/17 09:11 Dose: 10 ml Sodium Chloride (Flush - Normal Saline) 10 ml IVF PRN PRN PRN Reason: Saline Flush Last Admin: 07/28/17 09:24 Dose: 10 ml Thiamine HCl (Thiamine) 100 mg PO DAILY [facility] Last Admin: 08/02/17 09:10 Dose: 100 mg Venlafaxine HCl (Effexor Xr) 150 mg PO DAILY [facility] Last Admin: 08/02/17 09:10 Dose: 150 mg
[2017-08-02 14:36] LABS: CSF Source CSF; Clarity Clear (Clear); RBC Count - Manual 1 /cumm (None Seen); Tube # 4; WBC/NonHematics Count - Manual 1 /cumm (0-5)
--- NOTE | 2017-08-02 15:42 | RAD ---
LUMBAR PUNCTURE 08/02/17 INDICATION: Altered mental status concern for meningitis. FLUOROSCOPIC TIME: 0.4 minutes. TOTAL EXPOSURE: 241.9 mGy*m2 TECHNIQUE: Informed consent was obtained. Patient was placed prone on the fluoroscopy table. Site overlying the right L2-3 interlaminar space was marked. Site was prepped and draped in the usual sterile fashion. Buffered 1% lidocaine was administered overlying the subcutaneous tissues. Under fluoroscopic guidanc e, a 20 gauge spinal needle was guided down through the right L2-3 interlaminar space into the thecal sac. There is spontaneous return of normal appearing CSF fluid. 9 mL of normal appearing CSF fluid w ere obtained in four separate aliquots. The inner stylet was replaced. Spinal needle was removed. The patient tolerated the procedure without difficulty. IMPRESSION: Successful lumbar puncture with removal of 9 mL of normal appearing CSF fluid. POS: [facility]
[2017-08-02] MEDS ORDERED: VANCOMYCIN IVPB PRN (16:42)
[2017-08-02] MEDS: Vancomycin HCl 1.5 GM in Sodium Chloride 0.9% 250 ML 300 ML IVPB SCH (17:48)
[2017-08-03] MEDS: Levothyroxine Sodium 125 MCG TAB PO SCH (05:03)
[2017-08-03 05:32] LABS: #Basophils 0.1 thou/uL (0.0-0.2); #Eosinphils 0.2 thou/uL (0.0-0.7); #Lymphocytes 1.8 thou/uL (1.20-3.40); #Monocytes 1.2 thou/uL (0.11-0.59); #Neutrophils 14.5 thou/uL (1.40-6.50); %Basophils 0.6 % (0.0-1.0); %Eosinophils 0.9 % (0.0-10.0); %Lymphocytes 10.2 % (21.0-51.0); %Monocytes 6.6 % (0.0-10.0); %Neutrophils 81.7 % (42.0-75.0); Hemoglobin 10.2 g/dL (12.0-16.0); Mean Corpuscular HGB CONC 33.7 g/dL (32.0-36.0); Mean Corpuscular Hemoglobin 35.6 pg (27.0-31.0); Mean Platelet Volume 6.7 fL (7.4-10.4); Platelet Count 258 thou/uL (130-400); RBC Distribution Width 13.5 % (11.5-14.5); Red Blood Cell (RBC) Count 2.87 mill/uL (4.20-5.40); White Blood Cell (WBC) Count 17.8 thou/uL (4.8-10.8)
[2017-08-03 06:03] LABS: Anion Gap 13 mmol/L (10-20); BUN (Urea Nitrogen) 12 mg/dL (9.8-20.1); Calc. Creatinine Clearance 72 mL/min (70-130); Calcium 8.8 mg/dL (7.8-10.44); Carbon Dioxide 25 mmol/L (23-31); Chloride 101 mmol/L (98-107); Estimated GFR-MDRD 72; Glucose 107 mg/dL (80-115); Magnesium 2.1 mg/dL (1.6-2.6); Phosphorus 4.7 mg/dL (2.3-4.7); Sodium 136 mmol/L (136-145)
[2017-08-03] MEDS: Aripiprazole 10 MG TAB PO SCH (10:02)
[2017-08-03] MEDS: Venlafaxine HCl XR 150 MG CAP PO SCH (10:02)
[2017-08-03] MEDS: Losartan 25 MG TAB PO SCH (10:03)
[2017-08-03] MEDS: Heparin 5,000 UNITS/ML VIAL SC SCH ×3 (10:03→21:15)
[2017-08-03] MEDS: Folic Acid 1 MG TAB PO SCH (10:03)
[2017-08-03] MEDS: Pantoprazole 40 MG GRANULES PACKET PO SCH (10:04)
[2017-08-03] MEDS: Magnesium Oxide 400 MG TAB PO SCH (10:04)
[2017-08-03] MEDS: Multivits W-Minerals Liquid 15mL UDCUP PO SCH (10:04)
--- NOTE | 2017-08-03 13:59 | PRG ---
DATE OF SERVICE: 08/03/2017 SUBJECTIVE: A 67-year-old female who is better this morning. No shortness of breath. OBJECTIVE: VITALSIGNS: Temperature is 99, respiratory rate 18, room air, blood pressure 110/63. CHEST: Reveals decreased breath sounds without any wheezing. CARDIAC: Normal S1, S2, no gallops. ABDOMEN: Soft, without any masses. EXTREMITIES: No edema. LABORATORY DATA: White count , H&H 10 and 30, platelet count is normal. Electrolytes are ramon l. IMPRESSION: 1. Sepsis syndrome, Staphylococcus epidermidis. 2. Dementia. 3. Alcohol abuse. A lumbar puncture was ordered yesterday. It looks unremarkable. PLAN: Continue vancomycin and supportive care. We will follow.
--- NOTE | 2017-08-03 14:28 | PDOC.PN ---
- Subjective Encounter Start Date: 08/03/17 Encounter Start Time: 11:00 patient is seen today, alert orientation is improving. No other concerns noted. Explained to her her CSF analysis was normal, waiting on Culture. - Objective MAR Reviewed: Yes Vital Signs & Weight: Vital Signs (12 hours) Temp Pulse Resp BP BP Pulse Ox 08/03/17 11:49 96.7 F L 105 H 19 98/60 100 08/03/17 10:59 111 H 16 08/03/17 08:00 99.2 F 91 18 96 08/03/17 07:49 99.2 F 108 H 18 115/63 97 08/03/17 04:00 98 18 109/77 99 Weight Admit Weight 163 lb 12.855 oz Weight 150 lb Most Recent Monitor Data Heart Rate from ECG 105 NIBP 158/80 NIBP BP-Mean 108 Respiration from ECG 23 SpO2 97 I&O: 08/02/17 08/03/17 08/04/17 06:59 06:59 06:59 Intake Total 840 720 Output Total 900 1400 Balance -60 -680 Result Diagrams: 08/03/17 05:08 08/03/17 05:08 Additional Labs: Accuchecks 08/03/17 08/03/17 08/02/17 13:04 05:44 20:52 POC Glucose 116 H 112 H 115 H 08/02/17 16:21 POC Glucose 119 H Radiology Reviewed by me: Yes Phys Exam - Physical Examination HEENT: PERRLA, moist MMs Neck: no nodes, no JVD Respiratory: no wheezing, no rales Cardiovascular: RRR, no significant murmur Gastrointestinal: soft, non-tender Musculoskeletal: no edema, pulses present Neurological: non-focal, normal sensation Lymphatic: no nodes Dx/Plan (1) Acute metabolic encephalopathy Code(s): G93.41 - METABOLIC ENCEPHALOPATHY Status: Acute Comment: pt is Alcoholic and could be contributing to her late recovery of Mental status. Persistant family wants further aevaalution of her MS changes. CT head was normal, Ammonia was normal, pt will be seen by neurology today, will follow recommedations. (2) Leucocytosis Code(s): D72.829 - ELEVATED WHITE BLOOD CELL COUNT, UNSPECIFIED Status: Acute Comment: WBC trending down, CSF was normal, Waiitng on cultures. (3) Acute respiratory failure Code(s): J96.00 - ACUTE RESPIRATORY FAILURE, UNSP W HYPOXIA OR HYPERCAPNIA Status: Acute Qualifiers: Respiratory failure complication: hypoxia Qualified Code(s): J96.01 - Acute respiratory failure with hypoxia Comment: off of oxygen., Will closley monitor in IMCU today. (4) Alcohol withdrawal Code(s): F10.239 - ALCOHOL DEPENDENCE WITH WITHDRAWAL, UNSPECIFIED Status: Acute Comment: continue ASE protocol, Will continue with Daily Thiamine. No Withdrawl seizures, she is 11 days off of alcohol drink. (5) Aspiration pneumonia Code(s): J69.0 - PNEUMONITIS DUE TO INHALATION OF FOOD AND VOMIT Status: Acute Comment: continue IV antibiotics per pulmonary. (6) UTI (urinary tract infection) Status: Acute Comment: E. coli UTI, continue IV antibiotics as below (7) Abacterial meningitis Code(s): G03.0 - NONPYOGENIC MENINGITIS Status: Acute Comment: Need to r/o mengitis ? bacterial/ viral/ fungal. Wait for results. - Plan cont current plan of care, plan discussed w/ family, continue antibiotics, PT/OT , social organization professor, respiratory therapy, incentive spirometry, DVT proph w/ lovenox * . - Discharge Day Encounter end time: 11:35 Review of Systems - Review of Systems Constitutional: negative: fever, chills, sweats, weakness, malaise, other Eyes: negative: Pain, Vision Change, Conjunctivae Inflammation, Eyelid Inflammation, Redness, Other Respiratory: negative: Cough, Dry, Shortness of Breath, Hemoptysis, SOB with Excertion, Pleuritic Pain, Sputum, Wheezing Cardiovascular: negative: chest pain, palpitations, orthopnea, paroxysmal nocturnal dyspnea, edema, light headedness, other Gastrointestinal: negative: Nausea, Vomiting, Abdominal Pain, Diarrhea, Constipation, Melena, Hematochezia, Other Musculoskeletal: negative: Neck Pain, Shoulder Pain, Arm Pain, Back Pain, Hand Pain, Leg Pain, Foot Pain, Other - Medications/Allergies Allergies/Adverse Reactions: Allergies Allergy/AdvReac Type Severity Reaction Status Date / Time Penicillins Allergy Verified 11/27/13 11:08 Medications: Current Medications Acetaminophen (Tylenol) 650 mg PO Q4H PRN PRN Reason: Headache/Fever or Pain Last Admin: 07/30/17 03:10 Dose: 650 mg Acetaminophen (Tylenol) 650 mg ID Q4H PRN PRN Reason: Headache/Fever or Pain Albuterol/Ipratropium (Duoneb) 3 ml NEB [id number] [facility] Last Admin: 08/03/17 10:59 Dose: 3 ml Lipase/Protease/Amylase ([place] [id number]) 1 cap PER TUBE PRN PRN PRN Reason: TUBE OCCLUSION [place] Aripiprazole (Abilify) 5 mg PO DAILY [facility] Last Admin: 08/03/17 10:02 Dose: 5 mg Bisacodyl (Dulcolax) 10 mg PO DAILYPRN PRN PRN Reason: Constipation Dextrose/Water (Dextrose 50%) 25 gm SLOW IVP PRN PRN PRN Reason: Hypoglycemia Folic Acid (Folvite) 1 mg PO DAILY [facility] Last Admin: 08/03/17 10:03 Dose: 1 mg Glucagon (Glucagon) 1 mg IM PRN PRN PRN Reason: Hypoglycemia Heparin Sodium (Porcine) (Heparin) 5,000 units SC TID [facility] Last Admin: 08/03/17 10:03 Dose: 5,000 units Dextrose/Water (D5w) 1,000 mls @ 0 mls/hr IV .Q0M PRN; As Directed PRN Reason: Hypoglycemia Potassium Chloride 40 meq/ (Sodium Chloride) 270 mls @ 135 mls/hr IVPB ASDIR PRN PRN Reason: FOR SERUM K+ 2.5 - 3.5 Potassium Chloride 40 meq/ (Device) 100 mls @ 50 mls/hr IVPB ASDIR PRN PRN Reason: FOR SERUM K+ 2.5 - 3.5 Magnesium Sulfate 1 gm/ Sodium (Chloride) 102 mls @ 102 mls/hr IV PRN PRN PRN Reason: MAG LEVEL 1.4 - 2.0 Magnesium Sulfate 2 gm/ Device 100 mls @ 100 mls/hr IVPB ASDIR PRN PRN Reason: MAGNESIUM < 1.4 Potassium Phosphate 9 mmol/ (Sodium Chloride) 103 mls @ 25.75 mls/hr IVPB ASDIR PRN PRN Reason: Phosphate 1.0-1.8 Potassium Phosphate 12 mmol/ (Sodium Chloride) 254 mls @ 63.5 mls/hr IV ASDIR PRN PRN Reason: Serum phosphate 0.5-0.9 Potassium Phosphate 15 mmol/ (Sodium Chloride) 255 mls @ 63.75 mls/hr IV ASDIR PRN PRN Reason: Serum Phos < 0.5 Dextrose/Water (D5w) 1,000 mls @ 50 mls/hr IV .Q20H [facility] Last Admin: 08/02/17 21:02 Dose: 1,000 mls Vancomycin HCl 1.5 gm/ Sodium (Chloride) 300 mls @ 200 mls/hr IVPB 1700 [facility] Last Admin: 08/02/17 17:48 Dose: 300 mls Insulin Human Lispro (Humalog) 0 units SC .MILD SLIDING SCALE PRN PRN Reason: Mild Correctional Scale Last Admin: 08/01/17 04:10 Dose: 2 unit Iron/Minerals/Multivitamins (Certa Lisa Liquid) 15 ml PO DAILY [facility] Last Admin: 08/03/17 10:04 Dose: 15 ml Labetalol HCl (Normodyne) 20 mg SLOW IVP Q15MIN PRN PRN Reason: SBP>180 Last Admin: 07/28/17 13:00 Dose: 20 mg Levothyroxine Sodium (Synthroid) 125 mcg PO 0600 [facility] Last Admin: 08/03/17 05:03 Dose: 125 mcg Losartan Potassium (Cozaar) 100 mg PO DAILY [facility] Last Admin: 08/03/17 10:03 Dose: 100 mg Magnesium Oxide (Magnesium Oxide) 400 mg PO DAILY [facility] Last Admin: 08/03/17 10:04 Dose: 400 mg Magnesium Oxide (Magnesium Oxide) 400 mg PO BIDPRN PRN PRN Reason: FOR SERUM MAG 1.4 - 2.0 Last Admin: 07/29/17 10:54 Dose: 400 mg Magnesium Oxide (Magnesium Oxide) 800 mg PO PRN PRN PRN Reason: FOR SERUM MAG < 1.4 Miscellaneous Medication (Ccu Electrolyte Replacement) 1 each FS ONE [facility] Stop: 08/06/17 07:55 Miscellaneous Medication (Phos-Nak) 1 pkt PO TIDPRN PRN PRN Reason: FOR PHOS LEVEL 1.0 - 1.8 Miscellaneous Medication (Phos-Nak) 2 pkt PO TIDPRN PRN PRN Reason: FOR PHOS LEVEL 0.5 - 1.0 Miscellaneous Medication (Pharmacy To Dose) 1 each IVPB PRN PRN PRN Reason: GOAL TROUGH = 15-20 Nystatin (Mycostatin Powder) 1 gm TOP BID PRN PRN Reason: Topical Irritations Last Admin: 08/01/17 05:45 Dose: 1 applic Pantoprazole Sodium (Protonix) 40 mg PO DAILY [facility] Last Admin: 08/03/17 10:04 Dose: 40 mg Potassium Chloride (K-Dur) 40 meq PO ASDIR PRN PRN Reason: FOR SERUM K+ 2.5 - 3.5 Potassium Chloride (Klor-Con) 40 meq PER TUBE ASDIR PRN PRN Reason: FOR SERUM K+ 2.5-3.5 Last Admin: 08/01/17 03:59 Dose: 40 meq Sodium Bicarbonate (Bicarbonate, Sodium) 650 mg PER TUBE PRN PRN PRN Reason: TUBE OCCLUSION [place] Sodium Chloride (Flush - Normal Saline) 10 ml IVF Q12HR [facility] Last Admin: 08/03/17 10:04 Dose: 10 ml Sodium Chloride (Flush - Normal Saline) 10 ml IVF PRN PRN PRN Reason: Saline Flush Last Admin: 07/28/17 09:24 Dose: 10 ml Thiamine HCl (Thiamine) 100 mg PO DAILY [facility] Last Admin: 08/03/17 10:04 Dose: 100 mg Venlafaxine HCl (Effexor Xr) 150 mg PO DAILY [facility] Last Admin: 08/03/17 10:02 Dose: 150 mg
[2017-08-03] MEDS: Dextrose 5% in Water 1,000 ML IV SCH (17:17)
[2017-08-03] MEDS: Vancomycin HCl 1.5 GM in Sodium Chloride 0.9% 250 ML 300 ML IVPB SCH (17:23)
[2017-08-04 04:03] LABS: #Basophils 0.1 thou/uL (0.0-0.2); #Eosinphils 0.4 thou/uL (0.0-0.7); #Lymphocytes 2.3 thou/uL (1.20-3.40); #Monocytes 1.1 thou/uL (0.11-0.59); #Neutrophils 9.4 thou/uL (1.40-6.50); %Basophils 0.7 % (0.0-1.0); %Eosinophils 2.9 % (0.0-10.0); %Lymphocytes 17.2 % (21.0-51.0); %Neutrophils 71.1 % (42.0-75.0); Hemoglobin 10.1 g/dL (12.0-16.0); Mean Corpuscular HGB CONC 34.7 g/dL (32.0-36.0); Mean Corpuscular Hemoglobin 36.6 pg (27.0-31.0); Mean Platelet Volume 6.7 fL (7.4-10.4); Platelet Count 271 thou/uL (130-400); RBC Distribution Width 13.4 % (11.5-14.5); Red Blood Cell (RBC) Count 2.76 mill/uL (4.20-5.40); White Blood Cell (WBC) Count 13.2 thou/uL (4.8-10.8)
[2017-08-04 04:17] LABS: Anion Gap 9 mmol/L (10-20); BUN (Urea Nitrogen) 19 mg/dL (9.8-20.1); Calc. Creatinine Clearance 45 mL/min (70-130); Calcium 8.7 mg/dL (7.8-10.44); Carbon Dioxide 24 mmol/L (23-31); Chloride 103 mmol/L (98-107); Estimated GFR-MDRD 41; Glucose 98 mg/dL (80-115); Magnesium 2.3 mg/dL (1.6-2.6); Phosphorus 5.3 mg/dL (2.3-4.7); Potassium 3.2 mmol/L (3.5-5.1); Sodium 133 mmol/L (136-145)
[2017-08-04] MEDS: Levothyroxine Sodium 125 MCG TAB PO SCH (06:20)
[2017-08-04] MEDS: Folic Acid 1 MG TAB PO SCH (09:58)
[2017-08-04] MEDS: Aripiprazole 10 MG TAB PO SCH (09:58)
[2017-08-04] MEDS: Losartan 25 MG TAB PO SCH (09:58)
[2017-08-04] MEDS: Heparin 5,000 UNITS/ML VIAL SC SCH ×3 (09:58→20:00)
[2017-08-04] MEDS: Pantoprazole 40 MG GRANULES PACKET PO SCH (09:59)
[2017-08-04] MEDS: Venlafaxine HCl XR 150 MG CAP PO SCH (09:59)
[2017-08-04] MEDS: Magnesium Oxide 400 MG TAB PO SCH (09:59)
[2017-08-04] MEDS: Multivits W-Minerals Liquid 15mL UDCUP PO SCH (09:59)
--- NOTE | 2017-08-04 12:27 | PDOC.PN ---
- Subjective Encounter Start Date: 08/04/17 Encounter Start Time: 11:30 Yun Is more alert and oriented now, She is conversing with her kids at bedside, She has no SOb, No chest pain. She is admitted with hypoxic resp failure with AMS from UTI. - Objective Vital Signs & Weight: Vital Signs (12 hours) Temp Pulse Resp BP Pulse Ox 08/04/17 11:23 98.8 F 111 H 20 114/59 L 95 08/04/17 08:00 98.5 F 76 16 95 08/04/17 07:49 99 08/04/17 07:47 76 16 99 08/04/17 07:00 98.5 F 103 H 16 112/54 L 94 L 08/04/17 04:20 97.3 F L 90 21 H 102/51 L 97 08/04/17 02:53 96 12 99 Weight Admit Weight 163 lb 12.855 oz Weight 153 lb 1.6 oz Most Recent Monitor Data Heart Rate from ECG 105 NIBP 158/80 NIBP BP-Mean 108 Respiration from ECG 23 SpO2 97 I&O: 08/03/17 08/04/17 08/05/17 06:59 06:59 06:59 Intake Total 720 1700 Output Total 1400 500 Balance -680 1200 Result Diagrams: 08/04/17 03:32 08/04/17 03:32 Additional Labs: Accuchecks 08/04/17 08/04/17 08/03/17 11:12 05:49 20:13 POC Glucose 128 H 111 H 126 H 08/03/17 08/03/17 18:39 13:04 POC Glucose 191 H 116 H Radiology Reviewed by me: Yes Phys Exam - Physical Examination HEENT: PERRLA, moist MMs Neck: no nodes, no JVD Respiratory: no wheezing, no rales Cardiovascular: RRR, no significant murmur Gastrointestinal: soft, non-tender Musculoskeletal: no edema, pulses present Neurological: non-focal, normal sensation Dx/Plan (1) Acute metabolic encephalopathy Code(s): G93.41 - METABOLIC ENCEPHALOPATHY Status: Acute Comment: Improving , She is more alert now. Will continue to Monitor, meningitis ruled out. (2) Leucocytosis Code(s): D72.829 - ELEVATED WHITE BLOOD CELL COUNT, UNSPECIFIED Status: Acute Comment: WBC trending down, CSF was normal, Waiitng on cultures. [place]. (3) Acute respiratory failure Code(s): J96.00 - ACUTE RESPIRATORY FAILURE, UNSP W HYPOXIA OR HYPERCAPNIA Status: Acute Qualifiers: Respiratory failure complication: hypoxia Qualified Code(s): J96.01 - Acute respiratory failure with hypoxia Comment: off of oxygen., Wtransfer her to Medical floor (4) Alcohol withdrawal Code(s): F10.239 - ALCOHOL DEPENDENCE WITH WITHDRAWAL, UNSPECIFIED Status: Acute Comment: continue ASE protocol, Will continue with Daily Thiamine. No Withdrawl seizures, she is 11 days off of alcohol drink. (5) Aspiration pneumonia Code(s): J69.0 - PNEUMONITIS DUE TO INHALATION OF FOOD AND VOMIT Status: Acute Comment: continue IV antibiotics per pulmonary. Pt on vancomycin for Staph Epi. (6) UTI (urinary tract infection) Status: Acute Comment: E. coli UTI, continue IV antibiotics as above, (7) Abacterial meningitis Code(s): G03.0 - NONPYOGENIC MENINGITIS Status: Acute Comment: Need to r/o mengitis ? bacterial/ viral/ fungal. Wait for results. - Plan cont current plan of care, plan discussed w/ family, continue antibiotics, PT/OT , web content & social media manager, incentive spirometry, out of bed/ambulate, DVT proph w/ lovenox * . - Discharge Day Encounter end time: 12:05 Review of Systems - Review of Systems Constitutional: weakness Eyes: negative: Pain, Vision Change, Conjunctivae Inflammation, Eyelid Inflammation, Redness, Other ENT: negative: Ear Pain, Ear Discharge, Nose Pain, Nose Discharge, Nose Congestion, Mouth Pain, Mouth Swelling, Throat Pain, Throat Swelling, Other Respiratory: negative: Cough, Dry, Shortness of Breath, Hemoptysis, SOB with Excertion, Pleuritic Pain, Sputum, Wheezing Cardiovascular: negative: chest pain, palpitations, orthopnea, paroxysmal nocturnal dyspnea, edema, light headedness, other Gastrointestinal: negative: Nausea, Vomiting, Abdominal Pain, Diarrhea, Constipation, Melena, Hematochezia, Other Musculoskeletal: negative: Neck Pain, Shoulder Pain, Arm Pain, Back Pain, Hand Pain, Leg Pain, Foot Pain, Other - Medications/Allergies Allergies/Adverse Reactions: Allergies Allergy/AdvReac Type Severity Reaction Status Date / Time Penicillins Allergy Verified 08/29/14 11:08 Medications: Current Medications Acetaminophen (Tylenol) 650 mg PO Q4H PRN PRN Reason: Headache/Fever or Pain Last Admin: 07/30/17 03:10 Dose: 650 mg Acetaminophen (Tylenol) 650 mg IN Q4H PRN PRN Reason: Headache/Fever or Pain Albuterol/Ipratropium (Duoneb) 3 ml NEB [id number] [facility] Last Admin: 08/04/17 12:14 Dose: Not Given Lipase/Protease/Amylase (Amanda Eldridge [id number]) 1 cap PER TUBE PRN PRN PRN Reason: TUBE OCCLUSION TX Aripiprazole (Abilify) 5 mg PO DAILY [facility] Last Admin: 08/04/17 09:58 Dose: 5 mg Bisacodyl (Dulcolax) 10 mg PO DAILYPRN PRN PRN Reason: Constipation Dextrose/Water (Dextrose 50%) 25 gm SLOW IVP PRN PRN PRN Reason: Hypoglycemia Folic Acid (Folvite) 1 mg PO DAILY [facility] Last Admin: 08/04/17 09:58 Dose: 1 mg Glucagon (Glucagon) 1 mg IM PRN PRN PRN Reason: Hypoglycemia Heparin Sodium (Porcine) (Heparin) 5,000 units SC TID [facility] Last Admin: 08/04/17 09:58 Dose: 5,000 units Dextrose/Water (D5w) 1,000 mls @ 0 mls/hr IV .Q0M PRN; As Directed PRN Reason: Hypoglycemia Potassium Chloride 40 meq/ (Sodium Chloride) 270 mls @ 135 mls/hr IVPB ASDIR PRN PRN Reason: FOR SERUM K+ 2.5 - 3.5 Potassium Chloride 40 meq/ (Device) 100 mls @ 50 mls/hr IVPB ASDIR PRN PRN Reason: FOR SERUM K+ 2.5 - 3.5 Magnesium Sulfate 1 gm/ Sodium (Chloride) 102 mls @ 102 mls/hr IV PRN PRN PRN Reason: MAG LEVEL 1.4 - 2.0 Magnesium Sulfate 2 gm/ Device 100 mls @ 100 mls/hr IVPB ASDIR PRN PRN Reason: MAGNESIUM < 1.4 Potassium Phosphate 9 mmol/ (Sodium Chloride) 103 mls @ 25.75 mls/hr IVPB ASDIR PRN PRN Reason: Phosphate 1.0-1.8 Potassium Phosphate 12 mmol/ (Sodium Chloride) 254 mls @ 63.5 mls/hr IV ASDIR PRN PRN Reason: Serum phosphate 0.5-0.9 Potassium Phosphate 15 mmol/ (Sodium Chloride) 255 mls @ 63.75 mls/hr IV ASDIR PRN PRN Reason: Serum Phos < 0.5 Dextrose/Water (D5w) 1,000 mls @ 50 mls/hr IV .Q20H [facility] Last Admin: 08/03/17 17:17 Dose: 1,000 mls Insulin Human Lispro (Humalog) 0 units SC .MILD SLIDING SCALE PRN PRN Reason: Mild Correctional Scale Last Admin: 08/01/17 04:10 Dose: 2 unit Iron/Minerals/Multivitamins (Certa Lisa Liquid) 15 ml PO DAILY [facility] Last Admin: 08/04/17 09:59 Dose: 15 ml Labetalol HCl (Normodyne) 20 mg SLOW IVP Q15MIN PRN PRN Reason: SBP>180 Last Admin: 07/28/17 13:00 Dose: 20 mg Levofloxacin (Levaquin) 500 mg PO 0600 [facility] Stop: 08/10/17 06:01 Levothyroxine Sodium (Synthroid) 125 mcg PO 0600 [facility] Last Admin: 08/04/17 06:20 Dose: 125 mcg Losartan Potassium (Cozaar) 100 mg PO DAILY [facility] Last Admin: 08/04/17 09:58 Dose: 100 mg Magnesium Oxide (Magnesium Oxide) 400 mg PO DAILY [facility] Last Admin: 08/04/17 09:59 Dose: 400 mg Magnesium Oxide (Magnesium Oxide) 400 mg PO BIDPRN PRN PRN Reason: FOR SERUM MAG 1.4 - 2.0 Last Admin: 07/29/17 10:54 Dose: 400 mg Magnesium Oxide (Magnesium Oxide) 800 mg PO PRN PRN PRN Reason: FOR SERUM MAG < 1.4 Miscellaneous Medication (Ccu Electrolyte Replacement) 1 each FS ONE [facility] Stop: 08/06/17 07:55 Miscellaneous Medication (Phos-Nak) 1 pkt PO TIDPRN PRN PRN Reason: FOR PHOS LEVEL 1.0 - 1.8 Miscellaneous Medication (Phos-Nak) 2 pkt PO TIDPRN PRN PRN Reason: FOR PHOS LEVEL 0.5 - 1.0 Miscellaneous Medication (Pharmacy To Dose) 1 each IVPB PRN PRN PRN Reason: GOAL TROUGH = 15-20 Nystatin (Mycostatin Powder) 1 gm TOP BID PRN PRN Reason: Topical Irritations Last Admin: 08/01/17 05:45 Dose: 1 applic Pantoprazole Sodium (Protonix) 40 mg PO DAILY [facility] Last Admin: 08/04/17 09:59 Dose: 40 mg Potassium Chloride (K-Dur) 40 meq PO ASDIR PRN PRN Reason: FOR SERUM K+ 2.5 - 3.5 Potassium Chloride (Klor-Con) 40 meq PER TUBE ASDIR PRN PRN Reason: FOR SERUM K+ 2.5-3.5 Last Admin: 08/01/17 03:59 Dose: 40 meq Sodium Bicarbonate (Bicarbonate, Sodium) 650 mg PER TUBE PRN PRN PRN Reason: TUBE OCCLUSION TX Sodium Chloride (Flush - Normal Saline) 10 ml IVF Q12HR [facility] Last Admin: 08/04/17 09:59 Dose: 10 ml Sodium Chloride (Flush - Normal Saline) 10 ml IVF PRN PRN PRN Reason: Saline Flush Last Admin: 07/28/17 09:24 Dose: 10 ml Thiamine HCl (Thiamine) 100 mg PO DAILY [facility] Last Admin: 08/04/17 09:59 Dose: 100 mg Venlafaxine HCl (Effexor Xr) 150 mg PO DAILY [facility] Last Admin: 08/04/17 09:59 Dose: 150 mg
[2017-08-04] MEDS: Dextrose 5% in Water 1,000 ML IV SCH (12:51)
--- NOTE | 2017-08-04 13:46 | PRG ---
DATE OF SERVICE: 08/04/2017 SUBJECTIVE: Demented lady, appears to be in no distress. OBJECTIVE: VITAL SIGNS: Sats are 95% on room air, respirations 20, temperature 98, blood pressure is 114/59. CHEST: Decreased breath sounds, no wheezing. CARDIAC: Normal S1, S2. No gallops. ABDOMEN: Soft without any masses. LABORATORY DATA: CBC is unremarkable. Sodium is 133, creatinine is 1.28. IMPRESSION: 1. Dementia. 2. Chronic obstructive pulmonary disease exacerbation. 3. Bronchitis. 4. Azotemia. 5. Hyponatremia. PLAN: Continue neb treatments, supportive care. I would discontinue vancomycin at this stage, addis segovia to suspect staph. She has got E. coli, pretty much sensitive to all the antibiotics.
[2017-08-05] MEDS: Dextrose 5% in Water 1,000 ML IV SCH ×2 (04:59→06:32)
[2017-08-05] MEDS: Levothyroxine Sodium 125 MCG TAB PO SCH (05:00)
[2017-08-05 05:53] LABS: #Basophils 0.1 thou/uL (0.0-0.2); #Eosinphils 0.2 thou/uL (0.0-0.7); #Lymphocytes 1.3 thou/uL (1.20-3.40); #Monocytes 0.7 thou/uL (0.11-0.59); #Neutrophils 5.6 thou/uL (1.40-6.50); %Eosinophils 2.7 % (0.0-10.0); %Lymphocytes 16.8 % (21.0-51.0); %Monocytes 9.4 % (0.0-10.0); %Neutrophils 70.2 % (42.0-75.0); Hemoglobin 9.6 g/dL (12.0-16.0); Mean Corpuscular HGB CONC 34.9 g/dL (32.0-36.0); Mean Corpuscular Hemoglobin 36.8 pg (27.0-31.0); Mean Platelet Volume 6.4 fL (7.4-10.4); Platelet Count 302 thou/uL (130-400); RBC Distribution Width 13.2 % (11.5-14.5)
[2017-08-05 06:10] LABS: Anion Gap 13 mmol/L (10-20); BUN (Urea Nitrogen) 18 mg/dL (9.8-20.1); Calc. Creatinine Clearance 34 mL/min (70-130); Calcium 9.2 mg/dL (7.8-10.44); Carbon Dioxide 24 mmol/L (23-31); Chloride 102 mmol/L (98-107); Estimated GFR-MDRD 31; Glucose 112 mg/dL (80-115); Phosphorus 4.8 mg/dL (2.3-4.7); Potassium 3.3 mmol/L (3.5-5.1); Sodium 136 mmol/L (136-145)
[2017-08-05] MEDS: Venlafaxine HCl XR 150 MG CAP PO SCH (07:40)
[2017-08-05] MEDS: Aripiprazole 10 MG TAB PO SCH (07:41)
[2017-08-05] MEDS: Magnesium Oxide 400 MG TAB PO SCH (07:41)
[2017-08-05] MEDS: Folic Acid 1 MG TAB PO SCH (07:41)
[2017-08-05] MEDS: Heparin 5,000 UNITS/ML VIAL SC SCH ×3 (07:44→19:41)
[2017-08-05] MEDS: Losartan 25 MG TAB PO SCH (07:45)
[2017-08-05] MEDS: Pantoprazole 40 MG GRANULES PACKET PO SCH (07:50)
[2017-08-05] MEDS: Multivits W-Minerals Liquid 15mL UDCUP PO SCH (08:42)
--- NOTE | 2017-08-05 09:27 | PRG ---
DATE OF SERVICE: 08/05/2016 The patient is doing well. She is awake and oriented. PHYSICAL EXAMINATION: VITAL SIGNS: Temperature is 98.0, pulse 99, respirations 18, O2 sat 96%, blood pressure 118/75. HEENT: Unremarkable. NECK: No JVD. CHEST: Clear without wheeze or rhonchi. CARDIAC: S1 and S2 regular. ABDOMEN: Soft. EXTREMITIES: No edema. LABORATORY DATA: White blood cell count 8, hematocrit 27.5, platelet count 302. Sodium 136, potassi um 3.3, BUN 18, creatinine 1.6, glucose 112. ASSESSMENT: 1. Alcohol withdrawal. 2. Status post respiratory failure related to alcohol withdrawal and pneumonia. 3. Chronic obstructive pulmonary disease exacerbation. PLAN: The patient is stable for transfer to rehab. She is currently on oral antibiotics which shoul d be able to stop after the 12th. She has made definite improvement. There do not seem to be any fu rther pulmonary concerns. I will sign off the case. Please recall if further assistance needed.
--- NOTE | 2017-08-05 16:16 | PDOC.PN ---
- Subjective Encounter Start Date: 08/05/17 Encounter Start Time: 11:00 Patient is seen today, alert and oriented. No other concerns noted. - Objective MAR Reviewed: Yes Vital Signs & Weight: Vital Signs (12 hours) Temp Pulse Resp BP Pulse Ox 08/05/17 14:26 105 H 16 96 08/05/17 11:22 98.1 F 99 16 126/75 96 08/05/17 10:17 104 H 16 96 08/05/17 08:00 98.0 F 99 18 96 08/05/17 07:39 98.0 F 99 18 118/75 96 08/05/17 06:55 97 08/05/17 06:54 106 H 16 97 Weight Admit Weight 163 lb 12.855 oz Weight 147 lb Most Recent Monitor Data Heart Rate from ECG 105 NIBP 158/80 NIBP BP-Mean 108 Respiration from ECG 23 SpO2 97 I&O: 08/04/17 08/05/17 08/06/17 06:59 06:59 06:59 Intake Total 1700 1266 Output Total 500 Balance 1200 1266 Result Diagrams: 08/05/17 05:34 08/05/17 05:34 Additional Labs: Accuchecks 08/05/17 08/05/17 08/04/17 11:13 04:03 22:01 POC Glucose 117 H 101 102 08/04/17 16:22 POC Glucose 91 Radiology Reviewed by me: Yes Phys Exam - Physical Examination HEENT: PERRLA, moist MMs Neck: no nodes, no JVD Respiratory: no wheezing, no rales Cardiovascular: RRR, no significant murmur Gastrointestinal: soft, non-tender Musculoskeletal: no edema, pulses present Neurological: non-focal, normal sensation Psychiatric: normal affect, A&O x 3 Dx/Plan (1) Acute metabolic encephalopathy Code(s): G93.41 - METABOLIC ENCEPHALOPATHY Status: Resolved Comment: She is more alert now. Will continue to Monitor, meningitis ruled out. (2) Leucocytosis Code(s): D72.829 - ELEVATED WHITE BLOOD CELL COUNT, UNSPECIFIED Status: Acute Comment: WBC trending down, CSF was normal, Waiitng on cultures. Stbale. (3) Acute respiratory failure Code(s): J96.00 - ACUTE RESPIRATORY FAILURE, UNSP W HYPOXIA OR HYPERCAPNIA Status: Acute Qualifiers: Respiratory failure complication: hypoxia Qualified Code(s): J96.01 - Acute respiratory failure with hypoxia Comment: otransfer her to Medical floor, patint will need SNf evalaution/ Home with PT/OT, (4) Alcohol withdrawal Code(s): F10.239 - ALCOHOL DEPENDENCE WITH WITHDRAWAL, UNSPECIFIED Status: Acute Comment: Will continue with Daily Thiamine. Counsilled patient to Quit drinking alcohol, explained this is the best time to quit as she went through all the withdrawl symptoms and was well controlled with Ativan. pt agreed to quit. (5) Aspiration pneumonia Code(s): J69.0 - PNEUMONITIS DUE TO INHALATION OF FOOD AND VOMIT Status: Acute Comment: Pt on vancomycin for Staph Epi. No blood Cultures, Vancomycin was dced as no growth from new cultures. (6) UTI (urinary tract infection) Status: Acute Comment: E. coli UTI, continue IV antibiotics as above for 2 more day anbd stop. (7) Abacterial meningitis Code(s): G03.0 - NONPYOGENIC MENINGITIS Status: Acute Comment: Need to r/o mengitis ? bacterial/ viral/ fungal. Wait for results. - Plan cont current plan of care, plan discussed w/ family, PT/OT, hospital social worker, speech therapy (Repeat Speech therapy for new Diet.), incentive spirometry, out of bed/ambulate, DVT proph w/SCDs * . Review of Systems - Review of Systems Constitutional: weakness Eyes: negative: Pain, Vision Change, Conjunctivae Inflammation, Eyelid Inflammation, Redness, Other ENT: negative: Ear Pain, Ear Discharge, Nose Pain, Nose Discharge, Nose Congestion, Mouth Pain, Mouth Swelling, Throat Pain, Throat Swelling, Other Respiratory: negative: Cough, Dry, Shortness of Breath, Hemoptysis, SOB with Excertion, Pleuritic Pain, Sputum, Wheezing Cardiovascular: negative: chest pain, palpitations, orthopnea, paroxysmal nocturnal dyspnea, edema, light headedness, other Gastrointestinal: negative: Nausea, Vomiting, Abdominal Pain, Diarrhea, Constipation, Melena, Hematochezia, Other Genitourinary: negative: Dysuria, Frequency, Incontinence, Hematuria, Retention , Other Neurological: negative: Weakness, Numbness, Incoordination, Change in Speech, Confusion, Seizures, Other - Medications/Allergies Allergies/Adverse Reactions: Allergies Allergy/AdvReac Type Severity Reaction Status Date / Time Penicillins Allergy Verified 11/27/13 11:08 Medications: Current Medications Acetaminophen (Tylenol) 650 mg PO Q4H PRN PRN Reason: Headache/Fever or Pain Last Admin: 07/30/17 03:10 Dose: 650 mg Acetaminophen (Tylenol) 650 mg AR Q4H PRN PRN Reason: Headache/Fever or Pain Albuterol/Ipratropium (Duoneb) 3 ml NEB [id number] [facility] Last Admin: 08/05/17 14:26 Dose: 3 ml Lipase/Protease/Amylase ([place] [id number]) 1 cap PER TUBE PRN PRN PRN Reason: TUBE OCCLUSION [place] Aripiprazole (Abilify) 5 mg PO DAILY [facility] Last Admin: 08/05/17 07:41 Dose: 5 mg Bisacodyl (Dulcolax) 10 mg PO DAILYPRN PRN PRN Reason: Constipation Dextrose/Water (Dextrose 50%) 25 gm SLOW IVP PRN PRN PRN Reason: Hypoglycemia Folic Acid (Folvite) 1 mg PO DAILY [facility] Last Admin: 08/05/17 07:41 Dose: 1 mg Glucagon (Glucagon) 1 mg IM PRN PRN PRN Reason: Hypoglycemia Heparin Sodium (Porcine) (Heparin) 5,000 units SC TID [facility] Last Admin: 08/05/17 14:43 Dose: Not Given Dextrose/Water (D5w) 1,000 mls @ 0 mls/hr IV .Q0M PRN; As Directed PRN Reason: Hypoglycemia Dextrose/Water (D5w) 1,000 mls @ 50 mls/hr IV .Q20H [facility] Last Admin: 08/05/17 06:32 Dose: Not Given Insulin Human Lispro (Humalog) 0 units SC .MILD SLIDING SCALE PRN PRN Reason: Mild Correctional Scale Last Admin: 08/01/17 04:10 Dose: 2 unit Iron/Minerals/Multivitamins (Certa Lisa Liquid) 15 ml PO DAILY [facility] Last Admin: 08/05/17 08:42 Dose: Not Given Labetalol HCl (Normodyne) 20 mg SLOW IVP Q15MIN PRN PRN Reason: SBP>180 Last Admin: 07/28/17 13:00 Dose: 20 mg Levofloxacin (Levaquin) 500 mg PO 0600 [facility] Stop: 08/10/17 06:01 Last Admin: 08/05/17 05:00 Dose: 500 mg Levothyroxine Sodium (Synthroid) 125 mcg PO 0600 [facility] Last Admin: 08/05/17 05:00 Dose: 125 mcg Losartan Potassium (Cozaar) 100 mg PO DAILY [facility] Last Admin: 08/05/17 07:45 Dose: 100 mg Nystatin (Mycostatin Powder) 1 gm TOP BID PRN PRN Reason: Topical Irritations Last Admin: 08/01/17 05:45 Dose: 1 applic Pantoprazole Sodium (Protonix) 40 mg PO DAILY [facility] Last Admin: 08/05/17 07:50 Dose: 40 mg Sodium Bicarbonate (Bicarbonate, Sodium) 650 mg PER TUBE PRN PRN PRN Reason: TUBE OCCLUSION TX Sodium Chloride (Flush - Normal Saline) 10 ml IVF Q12HR [facility] Last Admin: 08/05/17 07:50 Dose: 10 ml Sodium Chloride (Flush - Normal Saline) 10 ml IVF PRN PRN PRN Reason: Saline Flush Last Admin: 07/28/17 09:24 Dose: 10 ml Thiamine HCl (Thiamine) 100 mg PO DAILY [facility] Last Admin: 08/05/17 07:40 Dose: 100 mg Venlafaxine HCl (Effexor Xr) 150 mg PO DAILY [facility] Last Admin: 08/05/17 07:40 Dose: 150 mg
[2017-08-06] MEDS: Dextrose 5% in Water 1,000 ML IV SCH (05:25)
[2017-08-06] MEDS: Levothyroxine Sodium 125 MCG TAB PO SCH (05:42)
[2017-08-06 05:52] LABS: #Basophils 0.1 thou/uL (0.0-0.2); #Eosinphils 0.2 thou/uL (0.0-0.7); #Lymphocytes 1.1 thou/uL (1.20-3.40); #Monocytes 0.7 thou/uL (0.11-0.59); #Neutrophils 4.2 thou/uL (1.40-6.50); %Basophils 1.2 % (0.0-1.0); %Eosinophils 3.4 % (0.0-10.0); %Lymphocytes 17.7 % (21.0-51.0); %Monocytes 11.5 % (0.0-10.0); %Neutrophils 66.3 % (42.0-75.0); Hemoglobin 9.6 g/dL (12.0-16.0); Mean Corpuscular HGB CONC 34.1 g/dL (32.0-36.0); Mean Corpuscular Hemoglobin 35.8 pg (27.0-31.0); Mean Platelet Volume 5.8 fL (7.4-10.4); Platelet Count 314 thou/uL (130-400); Red Blood Cell (RBC) Count 2.68 mill/uL (4.20-5.40); White Blood Cell (WBC) Count 6.3 thou/uL (4.8-10.8)
[2017-08-06 05:57] LABS: Anion Gap 10 mmol/L (10-20); BUN (Urea Nitrogen) 15 mg/dL (9.8-20.1); Calc. Creatinine Clearance 31 mL/min (70-130); Calcium 9.4 mg/dL (7.8-10.44); Carbon Dioxide 28 mmol/L (23-31); Chloride 102 mmol/L (98-107); Estimated GFR-MDRD 28; Glucose 106 mg/dL (80-115); Magnesium 2.1 mg/dL (1.6-2.6); Phosphorus 4.3 mg/dL (2.3-4.7); Sodium 137 mmol/L (136-145)
[2017-08-06] MEDS: Venlafaxine HCl XR 150 MG CAP PO SCH (07:47)
[2017-08-06] MEDS: Folic Acid 1 MG TAB PO SCH (07:48)
[2017-08-06] MEDS: Aripiprazole 10 MG TAB PO SCH (07:49)
[2017-08-06] MEDS: Losartan 25 MG TAB PO SCH (07:50)
[2017-08-06] MEDS: Heparin 5,000 UNITS/ML VIAL SC SCH ×3 (07:51→20:07)
[2017-08-06] MEDS: Pantoprazole 40 MG GRANULES PACKET PO SCH (07:53)
[2017-08-06] MEDS: Multivits W-Minerals Liquid 15mL UDCUP PO SCH (07:54)
--- NOTE | 2017-08-06 14:12 | PDOC.PN ---
- Subjective Encounter Start Date: 08/06/17 Encounter Start Time: 11:00 Subjective: awake, is sitting in chair -: amb with PT and rolling walker -: son at bedside - Objective MAR Reviewed: Yes Vital Signs & Weight: Vital Signs (12 hours) Temp Pulse Resp BP Pulse Ox 08/06/17 08:00 97.9 F 96 18 96 08/06/17 07:20 97.9 F 96 18 145/75 H 96 08/06/17 06:32 94 16 97 08/06/17 05:29 98.2 F 95 16 125/76 97 08/06/17 04:00 97 Weight Admit Weight 163 lb 12.855 oz Weight 146 lb 9 oz Most Recent Monitor Data Heart Rate from ECG 105 NIBP 158/80 NIBP BP-Mean 108 Respiration from ECG 23 SpO2 97 I&O: 08/05/17 08/06/17 08/07/17 06:59 06:59 06:59 Intake Total 1266 1755 Balance 1266 1755 Result Diagrams: 08/06/17 05:26 08/06/17 05:26 Additional Labs: Accuchecks 08/06/17 08/06/17 08/05/17 11:16 04:07 20:31 POC Glucose 103 118 H 112 H 08/05/17 16:57 POC Glucose 95 Phys Exam - Physical Examination HEENT: PERRLA, moist MMs Neck: no JVD, supple Respiratory: no wheezing, no rales Cardiovascular: RRR, no significant murmur Gastrointestinal: soft, non-tender, positive bowel sounds Musculoskeletal: no edema, pulses present Neurological: non-focal, moves all 4 limbs Dx/Plan (1) Acute respiratory failure Code(s): J96.00 - ACUTE RESPIRATORY FAILURE, UNSP W HYPOXIA OR HYPERCAPNIA Status: Resolved Qualifiers: Respiratory failure complication: hypoxia Qualified Code(s): J96.01 - Acute respiratory failure with hypoxia Comment: extubated 07/30/2017 (2) Alcohol withdrawal Code(s): F10.239 - ALCOHOL DEPENDENCE WITH WITHDRAWAL, UNSPECIFIED Status: Acute Qualifiers: Complication of substance-induced condition: uncomplicated Qualified Code(s ): F10.230 - Alcohol dependence with withdrawal, uncomplicated (3) Aspiration pneumonia Code(s): J69.0 - PNEUMONITIS DUE TO INHALATION OF FOOD AND VOMIT Status: Acute Qualifiers: Aspiration pneumonia type: unspecified Laterality: left Lung location: lower lobe of lung Qualified Code(s): J69.0 - Pneumonitis due to inhalation of food and vomit Comment: (4) UTI (urinary tract infection) Status: Acute Qualifiers: Urinary tract infection type: acute cystitis Hematuria presence: without hematuria Qualified Code(s): N30.00 - Acute cystitis without hematuria (5) Acute metabolic encephalopathy Code(s): G93.41 - METABOLIC ENCEPHALOPATHY Status: Resolved - Plan hemostable, encourage po intake of fluids -: may dc to swing bed if accepted -: continue thiamine, folic acid, mvi -: levaquin till 08/10/17 -: on abilify and effexor, dc iv fluids * . Review of Systems - Medications/Allergies Allergies/Adverse Reactions: Allergies Allergy/AdvReac Type Severity Reaction Status Date / Time Penicillins Allergy Verified 11/27/13 11:08 Medications: Current Medications Acetaminophen (Tylenol) 650 mg PO Q4H PRN PRN Reason: Headache/Fever or Pain Last Admin: 07/30/17 03:10 Dose: 650 mg Acetaminophen (Tylenol) 650 mg [place] Q4H PRN PRN Reason: Headache/Fever or Pain Albuterol/Ipratropium (Duoneb) 3 ml NEB Q4H PRN PRN Reason: SOB &/or Wheezing Lipase/Protease/Amylase (Amanda Eldridge [id number]) 1 cap PER TUBE PRN PRN PRN Reason: TUBE OCCLUSION [place] Aripiprazole (Abilify) 5 mg PO DAILY [facility] Last Admin: 08/06/17 07:49 Dose: 5 mg Bisacodyl (Dulcolax) 10 mg PO DAILYPRN PRN PRN Reason: Constipation Dextrose/Water (Dextrose 50%) 25 gm SLOW IVP PRN PRN PRN Reason: Hypoglycemia Folic Acid (Folvite) 1 mg PO DAILY [facility] Last Admin: 08/06/17 07:48 Dose: 1 mg Glucagon (Glucagon) 1 mg IM PRN PRN PRN Reason: Hypoglycemia Heparin Sodium (Porcine) (Heparin) 5,000 units SC TID [facility] Last Admin: 08/06/17 07:51 Dose: 5,000 units Dextrose/Water (D5w) 1,000 mls @ 0 mls/hr IV .Q0M PRN; As Directed PRN Reason: Hypoglycemia Dextrose/Water (D5w) 1,000 mls @ 50 mls/hr IV .Q20H [facility] Last Admin: 08/06/17 05:25 Dose: 1,000 mls Insulin Human Lispro (Humalog) 0 units SC .MILD SLIDING SCALE PRN PRN Reason: Mild Correctional Scale Last Admin: 08/01/17 04:10 Dose: 2 unit Iron/Minerals/Multivitamins (Certa Lisa Liquid) 15 ml PO DAILY [facility] Last Admin: 08/06/17 07:54 Dose: Not Given Labetalol HCl (Normodyne) 20 mg SLOW IVP Q15MIN PRN PRN Reason: SBP>180 Last Admin: 07/28/17 13:00 Dose: 20 mg Levofloxacin (Levaquin) 500 mg PO 0600 [facility] Stop: 08/10/17 06:01 Last Admin: 08/06/17 05:42 Dose: 500 mg Levothyroxine Sodium (Synthroid) 125 mcg PO 0600 [facility] Last Admin: 08/06/17 05:42 Dose: 125 mcg Losartan Potassium (Cozaar) 100 mg PO DAILY [facility] Last Admin: 08/06/17 07:50 Dose: 100 mg Nystatin (Mycostatin Powder) 1 gm TOP BID PRN PRN Reason: Topical Irritations Last Admin: 08/01/17 05:45 Dose: 1 applic Pantoprazole Sodium (Protonix) 40 mg PO DAILY [facility] Last Admin: 08/06/17 07:53 Dose: 40 mg Sodium Bicarbonate (Bicarbonate, Sodium) 650 mg PER TUBE PRN PRN PRN Reason: TUBE OCCLUSION TX Sodium Chloride (Flush - Normal Saline) 10 ml IVF Q12HR [facility] Last Admin: 08/06/17 07:55 Dose: 10 ml Sodium Chloride (Flush - Normal Saline) 10 ml IVF PRN PRN PRN Reason: Saline Flush Last Admin: 07/28/17 09:24 Dose: 10 ml Thiamine HCl (Thiamine) 100 mg PO DAILY [facility] Last Admin: 08/06/17 07:48 Dose: 100 mg Venlafaxine HCl (Effexor Xr) 150 mg PO DAILY [facility] Last Admin: 08/06/17 07:47 Dose: 150 mg
[2017-08-07] MEDS: Levothyroxine Sodium 125 MCG TAB PO SCH (05:03)
[2017-08-07 05:32] LABS: #Basophils 0.1 thou/uL (0.0-0.2); #Eosinphils 0.2 thou/uL (0.0-0.7); #Lymphocytes 1.2 thou/uL (1.20-3.40); #Monocytes 0.6 thou/uL (0.11-0.59); #Neutrophils 4.3 thou/uL (1.40-6.50); %Basophils 1.2 % (0.0-1.0); %Eosinophils 2.5 % (0.0-10.0); %Lymphocytes 19.1 % (21.0-51.0); %Monocytes 10.1 % (0.0-10.0); %Neutrophils 67.1 % (42.0-75.0); Mean Corpuscular HGB CONC 34.5 g/dL (32.0-36.0); Mean Corpuscular Hemoglobin 36.8 pg (27.0-31.0); Mean Platelet Volume 6.2 fL (7.4-10.4); Platelet Count 305 thou/uL (130-400); RBC Distribution Width 12.8 % (11.5-14.5); Red Blood Cell (RBC) Count 2.71 mill/uL (4.20-5.40); White Blood Cell (WBC) Count 6.4 thou/uL (4.8-10.8)
[2017-08-07 05:53] LABS: Anion Gap 16 mmol/L (10-20); BUN (Urea Nitrogen) 13 mg/dL (9.8-20.1); Calc. Creatinine Clearance 32 mL/min (70-130); Calcium 9.7 mg/dL (7.8-10.44); Carbon Dioxide 24 mmol/L (23-31); Chloride 102 mmol/L (98-107); Estimated GFR-MDRD 29; Glucose 80 mg/dL (80-115); Phosphorus 4.7 mg/dL (2.3-4.7); Sodium 139 mmol/L (136-145)
[2017-08-07] MEDS ORDERED: Potassium Chloride 20 MEQ TAB PO SCH (08:00)
[2017-08-07] MEDS: Folic Acid 1 MG TAB PO SCH (08:20)
[2017-08-07] MEDS: Venlafaxine HCl XR 150 MG CAP PO SCH (08:20)
[2017-08-07] MEDS: Pantoprazole 40 MG GRANULES PACKET PO SCH (08:21)
[2017-08-07] MEDS: Multivits W-Minerals Liquid 15mL UDCUP PO SCH (08:21)
[2017-08-07] MEDS: Aripiprazole 10 MG TAB PO SCH (08:21)
[2017-08-07] MEDS: Losartan 25 MG TAB PO SCH (08:22)
[2017-08-07 08:23] VITALS: BP 143/84; TEMP 97.8
[2017-08-07] MEDS: Heparin 5,000 UNITS/ML VIAL SC SCH (08:23)
--- NOTE | 2017-08-07 11:55 | PDOC.PN ---
- Subjective Encounter Start Date: 08/07/17 Encounter Start Time: 07:25 Subjective: is sitting in chair, son at bedside -: feels better - Objective MAR Reviewed: Yes Vital Signs & Weight: Vital Signs (12 hours) Temp Pulse Resp BP BP Pulse Ox 08/07/17 08:00 97.8 F 94 20 143/84 H 97 08/07/17 04:20 97.9 F 85 20 175/74 H 95 Weight Admit Weight 163 lb 12.855 oz Weight 146 lb 4 oz Most Recent Monitor Data Heart Rate from ECG 105 NIBP 158/80 NIBP BP-Mean 108 Respiration from ECG 23 SpO2 97 I&O: 08/06/17 08/07/17 08/08/17 06:59 06:59 06:59 Intake Total 1755 1480 Balance 1755 1480 Result Diagrams: 08/07/17 04:09 08/07/17 04:09 Additional Labs: Accuchecks 08/07/17 08/07/17 08/06/17 11:11 04:05 23:55 POC Glucose 81 87 125 H 08/06/17 08/06/17 08/06/17 22:31 19:58 16:12 POC Glucose 95 89 123 H Phys Exam - Physical Examination HEENT: PERRLA, moist MMs Neck: no JVD, supple Respiratory: no wheezing, no rales Cardiovascular: RRR, no significant murmur Gastrointestinal: soft, non-tender, positive bowel sounds Musculoskeletal: no edema, pulses present Neurological: non-focal, moves all 4 limbs Psychiatric: A&O x 3 Dx/Plan (1) Acute respiratory failure Code(s): J96.00 - ACUTE RESPIRATORY FAILURE, UNSP W HYPOXIA OR HYPERCAPNIA Status: Resolved Qualifiers: Respiratory failure complication: hypoxia Qualified Code(s): J96.01 - Acute respiratory failure with hypoxia Comment: extubated 07/30/2017 (2) Alcohol withdrawal Code(s): F10.239 - ALCOHOL DEPENDENCE WITH WITHDRAWAL, UNSPECIFIED Status: Acute Qualifiers: Complication of substance-induced condition: uncomplicated Qualified Code(s ): F10.230 - Alcohol dependence with withdrawal, uncomplicated Comment: stable (3) Aspiration pneumonia Code(s): J69.0 - PNEUMONITIS DUE TO INHALATION OF FOOD AND VOMIT Status: Acute Qualifiers: Aspiration pneumonia type: unspecified Laterality: left Lung location: lower lobe of lung Qualified Code(s): J69.0 - Pneumonitis due to inhalation of food and vomit Comment: resolving (4) UTI (urinary tract infection) Status: Acute Qualifiers: Urinary tract infection type: acute cystitis Hematuria presence: without hematuria Qualified Code(s): N30.00 - Acute cystitis without hematuria Comment: resolving (5) Acute metabolic encephalopathy Code(s): G93.41 - METABOLIC ENCEPHALOPATHY Status: Resolved - Plan hemostable -: dc plan to [facility] swing bed -: d/w son and patient -: levaquin till -: counselled to stay away from alcohol * .
--- NOTE | 2017-08-07 19:49 | DIS ---
DATE OF ADMISSION: 07/20/2017 DATE OF DISCHARGE: 08/07/2017 [facility]. PRIMARY DISCHARGE DIAGNOSES: Acute respiratory failure, status post extubation done on 07/30/2017, a lcohol abuse with withdrawal, Parkinson's disease, aspiration pneumonia, urinary tract infection, met abolic encephalopathy resolving. PROCEDURES DONE DURING HOSPITALIZATION: The patient has had chest x-ray done which on admission show ed no acute cardiopulmonary abnormalities. 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 E cho with 2D Doppler showed EF of 60%-65%, moderate mitral regurgitation. She has had serial chest x- ray done after hydration which showed dense bilateral infiltrates, likely aspiration. Patient also h ad a lumbar puncture done on 08/02/2017 by Interventional Radiology with removal of 9 mL of normal ap pearing CSF. Urine culture grew E. coli more than 100,000 colony forming units per mL resistant to a mpicillin and sulbactam but sensitive to all other antibiotics. Blood cultures no growth. Had an in itial white count of 30 with discharge numbers of 6.4. Discharge H&H 10 and 28, MCV is 107, platelet count is 305. Discharge BUN and creatinine is 13 and 1.7, had BUN of 45 and creatinine of 3.1 on e day of admission with serum bicarbonate of 19 on 07/20/2017. Lactic acid was 8.2 on the day of adm ission. CSF tube #4 was colorless, clear, and clarity with 1 WBC and 1 RBC of 82 mg per deciliter of glucose and the CSF and 38 mg of total protein in the CSF. Urine tox screen was positive for benzod iazepines done on . Plasma alcohol was less than 10 on the 07/20/2017. INPATIENT CONSULTS: Dr. Rizzo for Pulmonology and Dr. Joy for Neurosurgery. DISCHARGE MEDICATIONS: Levaquin 500 mg p.o. daily for another 4 days, venlafaxine extended release 1 50 mg daily, thiamine 100 mg daily, fish oil 1000 mg 1 capsule daily, multivitamin 1 tab once daily, folic acid 1 mg daily, metoprolol extended release 50 mg daily, metformin 500 mg twice daily, Cozaar 100 mg daily, levothyroxine 125 mcg daily, DuoNebs q.4 hourly p.r.n., Rapatha 420 mg subcu once a mon , vitamin D2 50,000 units p.o. daily, budesonide inhaler 160/4.5 mcg 2 puffs twice daily, aspirin 8 1 mg daily, and aripiprazole 5 mg p.o. daily. ALLERGIES: PENICILLIN. DISCHARGE PLAN: Patient to follow up with primary care physician in 1 week. BRIEF COURSE DURING HOSPITALIZATION: Patient initially got admitted on for acute encephalopathy . She also had acute kidney injury with likely sepsis with white count of nearly 30,000. She had si gns of urinary tract infection on arrival. Patient had history of drinking up to one full bottle of wine on a daily basis. She was initially placed on broad spectrum IV antibiotics along with pressors and admitted to ICU. She decompensated on the and had to be decompensated with respiratory sameer lure with symptoms of alcohol withdrawal and had to be intubated. She is successfully extubated on . She has had consultation with Dr. Marie for Neurology as well. The patient had findings of th e basilar artery aneurysm and small (08:20) on the CT angio on admission. She was evaluated by Dr. Joy and they will make arrangements for outpatient follow up for the same. She has had sl ow recovery from her acute encephalopathy and alcohol withdrawal with history of Parkinson's as well. She has made slow and steady improvement. She is ambulating with a rolling walker prior to dischar . Due to ongoing deconditioning and history of falls at her house, the patient is being discharged to swing bed for further recuperation prior to going home. She has been adequately counseled with roger nayak to staying away from alcohol. A total of 35 minutes was spent on discharge plan. Please see a face to face documentation on [facility] for the day of discharge on [facility].
== END 2017-08-07 11:15 | DRG 870 ==
LOC: ERS 19:56 → ERHOLD 23:00 → CCU 07-21 08:39 → IMCU/EMU 07-22 00:27 → CCU 07-22 09:11 → IMCU/EMU 07-31 09:25 → T4-B 08-04 13:10
PROVIDERS: ADMIT Internal Medicine; ATTEND Internal Medicine
PROC: 5A1955Z Respiratory Ventilation, Greater than 96 Consecutive Hours (ICD-10-PCS; principal; 2017-07-22)
PROC: 0BH17EZ Insertion of Endotracheal Airway into Trachea, Via Natural or Artificial Opening (ICD-10-PCS; 2017-07-22)
PROC: 009U3ZX Drainage of Spinal Canal, Percutaneous Approach, Diagnostic (ICD-10-PCS; 2017-08-02)
DX: A41.9 Sepsis, unspecified organism (principal); G93.41 Metabolic encephalopathy; J96.01 Acute respiratory failure with hypoxia; J69.0 Pneumonitis due to inhalation of food and vomit; J96.02 Acute respiratory failure with hypercapnia; N39.0 Urinary tract infection, site not specified; N17.9 Acute kidney failure, unspecified; F10.239 Alcohol dependence with withdrawal, unspecified; E87.1 Hypo-osmolality and hyponatremia; E87.2 Acidosis; I10 Essential (primary) hypertension; E03.9 Hypothyroidism, unspecified; E11.9 Type 2 diabetes mellitus without complications; J44.9 Chronic obstructive pulmonary disease, unspecified; G20 Parkinson's disease; E78.5 Hyperlipidemia, unspecified; F41.9 Anxiety disorder, unspecified; F32.9 Major depressive disorder, single episode, unspecified; F17.210 Nicotine dependence, cigarettes, uncomplicated; I67.1 Cerebral aneurysm, nonruptured; B96.20 Unspecified Escherichia coli [E. coli] as the cause of diseases classified elsewhere; Z88.0 Allergy status to penicillin; Z79.82 Long term (current) use of aspirin; Z79.84 Long term (current) use of oral hypoglycemic drugs; Z79.899 Other long term (current) drug therapy
CPT/HCPCS: 36415; 36416; 36556; 51701; 62270; 70450; 70496; 71045; 74018; 80048; 80053; 80202; 80306; 80307; 81003; 81015; 82140; 82553; 82805; 82945; 83605; 83690; 83735; 84100; 84145; 84157; 84439; 84443; 84481; 84484; 85025; 86140; 86612; 86635; 86698; 87040; 87077; 87086; 87149; 87186; 87252; 89051; 93005; 93306; 94002; 94003; 94640; 94760; 96361; 96365; 96366; 96367; 96375; 99406; A4216; A4353; C9113; G8978-GP-CL; G8979-GP-CJ; G8996-GN-CI; G8996-GN-CL; G8997-GN-CI; G8997-GN-CJ; J0696; J1200; J1644; J1940; J1956; J2060; J2185; J2270; J2543; J2704; J2920; J3370; J3411; J3475; J3480; J3490; J7042; J7050; J7620

== ENCOUNTER 2017-09-16 08:28 | Inpatient (IN) | payer MEDICARE, OTHER ==
[2017-09-16] MEDS ORDERED: Heparin 10,000 UNITS/1 ML VIAL ONE (09:12)
[2017-09-16] MEDS ORDERED: Fentanyl 100 MCG/2 ML VIAL ONE (09:20)
[2017-09-16] MEDS ORDERED: Midazolam HCl 2 mg/2 ml Vial ONE (09:20)
[2017-09-16] MEDS ORDERED: Ondansetron HCl/PF 4 MG/2 ML Vial IVP PRN (09:22)
[2017-09-16] MEDS ORDERED: Iopamidol 370 76% 100 ML VIAL ONE (09:37)
[2017-09-16] MEDS ORDERED: PHENYLEPHRINE-NS 100 MCG/ML 10 ML SYRINGE ONE (10:50)
[2017-09-16] MEDS ORDERED: Glycopyrrolate 0.2 MG/ML 5 ML SYRINGE ONE (10:50)
[2017-09-16] MEDS ORDERED: Dexamethasone 20 MG/5 ML VIAL ONE (10:50)
[2017-09-16] MEDS ORDERED: Heparin 10,000 UNITS/ 10 ML VIAL ONE (10:50)
[2017-09-16] MEDS ORDERED: Ondansetron HCl/PF 4 MG/2 ML Vial ONE (10:50)
[2017-09-16] MEDS ORDERED: PROPOFOL 200 MG/20 ML VIAL ONE (10:50)
[2017-09-16] MEDS ORDERED: Lidocaine 1% PF 5 ML VIAL ONE (10:50)
[2017-09-16] MEDS ORDERED: Lidocaine 1% (PF) 30 ML VIAL ONE (11:06)
[2017-09-16] MEDS ORDERED: Promethazine HCl 25 MG/ML VIAL SLOW IVP PRN (12:05)
[2017-09-16] MEDS ORDERED: Protamine Sulfate 50 MG/5 ML VIAL ONE (12:13)
[2017-09-16] MEDS ORDERED: Ondansetron ODT 4 MG TAB PO PRN (12:30)
[2017-09-16] MEDS ORDERED: Acetaminophen 325 MG TAB PO PRN (12:30)
[2017-09-16] MEDS ORDERED: Aspirin 325 MG TAB PO SCH (12:45)
--- NOTE | 2017-09-16 13:32 | CCL ---
RADIOLOGY PROCEDURE NOTE: Date: 09/16/17 SURGEON: Francisco Kurtz M.D. FILTER WASHER AND PRESSER: None. INDICATION: Incidentally discovered aneurysm. DIAGNOSIS: Basilar apex region aneurysm. PROCEDURE: Cerebral angiogram with endovascular coiling of basilar apex region aneurysm. ANESTHESIA: General. TECHNIQUE: The patient was brought into the angiogram suite and placed on the table in the supine position. She was placed under general anesthesia. Both groins were prepped and draped in the usual sterile fashion . 1% lidocaine was used to inject the right groin. A 5 German micropuncture set was used to gain acce ss to the right common femoral artery. Using the Seldinger technique, a 5-German diagnostic catheter passed over 5-German shuttle sheath was then passed over the guidewire into the aortic arch where the right vertebral artery was selectively catheterized. The left vertebral artery was initially inspect ed and found to be diminutive and not safe for catheterization. An AP and lateral angiogram was then performed which confirmed the presence of a large basilar apex region aneurysm which measured 10 x 11 x 10 mm. Patient underwent endovascular coiling of the aneurysm, but the upper and posterior 2/3 of the aneurysm did not fill. I decided to stage the procedure given the potential risk for perianeurysm al edema and mass effect. A control angiogram was then performed which showed complete filling of megan th the left and right posterior cerebral arteries as well as superior cerebellar arteries as well as all other adjacent vessels. Sheath was then removed and hemostasis was maintained with manual compre ssion. The patient was anticoagulated with heparin throughout the procedure and was reversed in the e nd with protamine. There were no known procedural complications. IMPRESSION: 1. The patient underwent successful diagnostic angiography. Angiography via the right vertebral ariel ry revealed the presence of a large basilar apex region aneurysm. 2. The patient underwent successful coil embolization of the basilar apex region aneurysm. There is a portion of the aneurysm which fills along the proximal aspect of the dome near the neck.
[2017-09-16] MEDS: Sodium Chloride 0.9% 1,000 ML IV SCH (16:02)
[2017-09-16] MEDS: metFORMIN 500 MG TAB PO SCH (16:02)
[2017-09-16] MEDS ORDERED: Prevnar 13-Val Conj/PF 0.5 ML SYRINGE IM ONE (17:30)
[2017-09-16] MEDS: Potassium Chloride 20 MEQ TAB PO SCH (20:29)
[2017-09-16] MEDS: Famotidine 20 MG TAB PO SCH (20:29)
[2017-09-17] MEDS: Sodium Chloride 0.9% 1,000 ML IV SCH (05:48)
[2017-09-17] MEDS ORDERED: Levothyroxine Sodium 112 MCG TAB PO SCH (06:00)
[2017-09-17] MEDS ORDERED: Aspirin 81 mg Enteric Coated Tablet PO SCH (09:00)
[2017-09-17] MEDS ORDERED: Losartan 25 MG TAB PO SCH (09:00)
[2017-09-17] MEDS ORDERED: D3 PO SCH (09:00)
[2017-09-17] MEDS ORDERED: MAG OXIDE PO SCH (09:00)
[2017-09-17] MEDS ORDERED: Multivitamin W/ Minerals 1 TAB PO SCH (09:00)
[2017-09-17] MEDS ORDERED: Venlafaxine HCl XR 150 MG CAP PO SCH (09:00)
[2017-09-17] MEDS ORDERED: TURMERIC RT XT PO SCH (09:00)
[2017-09-17] MEDS ORDERED: Folic Acid 1 MG TAB PO SCH (09:00)
[2017-09-17] MEDS ORDERED: Aripiprazole 10 MG TAB PO SCH ×2 (09:00)
[2017-09-17] MEDS ORDERED: Fish Oil 1,000 MG CAP PO SCH (09:00)
[2017-09-17] MEDS ORDERED: Aspirin 325 MG TAB PO SCH (09:00)
--- NOTE | 2017-09-17 09:21 | CON ---
DATE OF CONSULTATION: 09/17/2017 HISTORY OF PRESENT ILLNESS: She is a 67-year-old female who underwent an emergency cerebral angiogra m with endovascular coiling of basilar apex region aneurysm. She in the [facility], the reason for consultation. She still appears to be quite encephalopathic. She does give history, but is extremely sketchy. She was here recently in the hospital, no more than a month ago with a history of metabolic encephalopathy associated with respiratory failure and aspir ation pneumonia requiring intubation and vent support. As per the previous medical records, she has longstanding history of heavy alcohol and tobacco abuse. PAST MEDICAL HISTORY: Recent urosepsis. Metabolic encephalopathy, respiratory failure, history of P arkinson disease, history of recently diagnosed aneurysm on a CT of the head. Otherwise past medical history of hypertension, hypothyroidism, diabetes. PAST SURGICAL HISTORY: D&C, previous intubation. SOCIAL HISTORY: Alcohol, a bottle of wine. Tobacco; a pack a day. MEDICATIONS: A list of medicine from home includes metformin 500, Venlafaxine 150, potassium, vitami n, metoprolol, 50 Cozaar 100, Synthroid 112, nebulizer, aspirin and Aripiprazole 0.5 mg a day. ALLERGIES: PENICILLIN. REVIEW OF SYSTEMS: Difficult to obtain because of encephalopathy. PHYSICAL EXAMINATION: VITAL SIGNS: Pulse is 106, temperature 98, room air sats 96%, blood pressure 150/65. CHEST: Chest revealed no wheezing or crackles. CARDIAC: Normal S1, S2, no gallops. ABDOMEN: Soft, no masses. Status post cerebral angiogram with coiling of her basilar artery aneurysm. I do not see any recent lab. One is being ordered. I do not see a recent chest x-ray, one is being ordered. IMPRESSION: 1. Chronic obstructive pulmonary disease. 2. Hypothyroidism. 3. Diabetes. 4. Alcohol and tobacco abuse. 5. Status post cerebral angiogram and coiling of her basilar artery aneurysm. PLAN: Continue supportive care. We will follow while in the [facility].
--- NOTE | 2017-09-17 09:39 | RAD ---
CHEST ONE VIEW: HISTORY: COPD. COMPARISON: Chest radiograph from 07/29/2017. FINDINGS: The lungs are without focal air space consolidation, pneumothorax, or effusion. The cardiac silhouet te and mediastinal contours are similar. No acute osseous abnormality. IMPRESSION: No acute intrathoracic abnormality. POS: [facility]
[2017-09-17] MEDS: Famotidine 20 MG TAB PO SCH (09:49)
[2017-09-17] MEDS: Potassium Chloride 20 MEQ TAB PO SCH (09:50)
[2017-09-17] MEDS: metFORMIN 500 MG TAB PO SCH (09:51)
[2017-09-17 11:01] VITALS: BP 151/83; TEMP 98.9
[2017-09-17 12:20] VITALS: BMI 24.2
[2017-09-23] MEDS ORDERED: Ergocalciferol 1.25 MG(50,000 UNITS) CAP PO SCH (09:00)
== END 2017-09-17 14:05 | disposition home or self-care (01) | DRG 270 ==
LOC: SURG A 08:28 → EDSTATUS 08:42 → IMCU/EMU 13:42
PROVIDERS: ADMIT Neurological Surgery; ATTEND Neurological Surgery
PROC: 03V Upper Arteries, Restriction (ICD-10-PCS; principal; 2017-09-16)
DX: I72.5 Aneurysm of other precerebral arteries (principal); G93.40 Encephalopathy, unspecified; G20 Parkinson's disease; I10 Essential (primary) hypertension; E03.9 Hypothyroidism, unspecified; E11.9 Type 2 diabetes mellitus without complications; J44.9 Chronic obstructive pulmonary disease, unspecified; F17.210 Nicotine dependence, cigarettes, uncomplicated; Z88.0 Allergy status to penicillin
CPT/HCPCS: 36416; 61624; 71045; 85347; 90471; 90670; A4216; C1769; C1887; G0009; J1100; J1644; J2001; J2250; J2405; J2704; J2720; J3010

== ENCOUNTER 2017-09-23 10:21 | Outpatient (CLI) | payer OTHER ==
--- NOTE | 2017-09-23 14:05 | PET ---
PET CT OF THE BRAIN: HISTORY: A 67-year-old female with Alzheimer's disease. TECHNIQUE: PET CT of the brain was performed following the intravenous administration of 9.2 mCi [id number] glucose in the right antecubital fossa. FINDINGS: There is hypometabolism in the temporoparietal lobes bilaterally. IMPRESSION: Findings are consistent with Alzheimer's disease. POS: [facility]
== END 2017-09-23 10:22 | disposition home or self-care (01) ==
LOC: PET 10:21
PROVIDERS: ATTEND Psychiatry & Neurology Neurology
DX: G30.9 Alzheimer's disease, unspecified (principal)
CPT/HCPCS: 78608; A9552

== ENCOUNTER 2019-07-20 09:20 | Outpatient (CLI) | payer OTHER ==
--- NOTE | 2019-07-20 11:02 | CT ---
BRAIN CT WITHOUT IV CONTRAST: HISTORY: Amnesia, poor historian, prior aneurysm coiling. FINDINGS: Posterior superior suprasellar dense coiling material from aneurysm coiling. There is extreme focal artifact at this level. No evidence for focal mass or midline shift. No acute hemorrhage. IMPRESSION: Very extensive dense metal artifact from aneurysm coiling in the posterior superior suprasellar regio n. No new mass or hemorrhage. POS: [facility]
== END 2019-07-20 09:21 | disposition home or self-care (01) ==
LOC: BICCT 09:20
PROVIDERS: ATTEND Psychiatry & Neurology Neurology
DX: R41.3 Other amnesia (principal); I67.1 Cerebral aneurysm, nonruptured
CPT/HCPCS: 70450

== ENCOUNTER 2020-12-22 08:52 | Outpatient (CLI) | payer OTHER | END 2020-12-22 08:53 | disposition home or self-care (01) | LOC: NM 08:52 | PROVIDERS: ATTEND Nurse Practitioner Family | DX: R25.1 Tremor, unspecified (principal); G20 Parkinson's disease; G80.9 Cerebral palsy, unspecified | CPT/HCPCS: 78803; A9537; A9584 ==